=== PATIENT | male | born 1945 | race Caucasian/White ===

== ENCOUNTER 2017-08-04 16:05 | Inpatient (IN) | payer OTHER, MEDICARE ==
[2017-08-04] VITALS (20 sets, daily range): BP systolic 65–165; BP diastolic 47–96; PULSE 54–89; RESP 14–20; TEMP 92.4–93.6; O2SAT 91–100
[~2017-08-04] VITALS: Ht 175.3 cm; Wt 111.6 kg
[~2017-08-04 16:05] MED LIST: EPINEPHrine HCL (1:10,000) 1 MG/10 ML SYRINGE IV ONE; SODIUM BICARBONATE 8.4% INJ 50 MEQ/50 ML SYR IV ONE
[2017-08-04] MEDS ORDERED: DOPamine INJ PREMIX 500 ML ONE (16:30)
[2017-08-04 17:00] LABS: AUTOMATED NEUTROPHIL # 6.8 TH/MM3 (1.8-7.7); BASOPHIL % 0.2 % (0.0-2.0); EOSINOPHIL # 0.2 TH/MM3 (0-0.4); EOSINOPHIL % 2.1 % (0.0-4.0); HEMATOCRIT 45.6 % (39.0-51.0); LYMPH % 25.6 % (9.0-44.0); LYMPHOCYTE # 2.7 TH/MM3 (1.0-4.8); MEAN CELL VOLUME 105.8 FL (80.0-100.0); MEAN CORPUSCULAR HGB CONC 32.1 % (32.0-36.0); MONO % 7.5 % (0.0-8.0); NEUT % 64.6 % (16.0-70.0); PLATELET COUNT 246 TH/MM3 (150-450); RED BLOOD COUNT 4.31 MIL/MM3 (4.50-5.90); WHITE BLOOD COUNT 10.6 TH/MM3 (4.0-11.0)
[2017-08-04 17:05] LABS: HEMO FLAGS AUTO DIFF
[2017-08-04 17:14] LABS: ANION GAP 17 MEQ/L (5-15)
--- NOTE | 2017-08-04 17:21 | PD ---
HPI Chief Complaint: Respiratory Distress Time Seen by Provider: 16:18 Travel History International Travel<30 days: No Contact w/Intl Traveler<30days: No Traveled to known affect area: No History of Present Illness HPI This is a 71-year-old male unknown past, presents here as a cardiac arrest with return of spontaneous circulation. According to the paramedics are called to a house where he was found in asystole. When police arrived, they started CPR. When paramedics arrived they found him in asystole. They started epinephrine which put him into ventricular fibrillation. They report one defibrillation which put him in normal sinus rhythm. When [facility] arrived they found him in sinus rhythm and en route he went back into V. fib. He was defibrillated 1 further time and given one further round of epinephrine which brought him back to sinus rhythm with a pulse. Patient's blood pressure was noted to be in the low 100s systolic. He had a Combitube placed by the medics. This was exchanged with a 80 ET tube. Patient went back into PEA. ACLS protocol was initiated he was given 1 round of epinephrine which brought him back to pulse with a heart rate in the 70s and 80s. Patient was noted to have a low blood pressure and a dopamine drip was started at 10 mics. Orogastric tube was placed which showed blood in his stomach. This may have been from the Combitube placement. PFSH Past Medical History ?: Not Social History Tobacco Use: No (unknown) Allergies-Medications (Allergen,Severity, Reaction): Uncoded Allergies: unknown (Allergy, Unknown, unknown, 08/04/17) Review of Systems ROS Limitations: Clinical Condition, Intubated, Unresponsive, Other: Except as stated in HPI: all other systems reviewed are Neg Physical Exam Narrative GENERAL: Well-developed gentleman who presents with ventilations via Combitube in progress. Patient had fixed and dilated pupils. SKIN: Focused skin assessment warm/dry. HEAD: Atraumatic. Normocephalic. EYES: Fixed and dilated at 3 mm.. No scleral icterus. No injection or drainage. ENT: No nasal bleeding or discharge. Mucous membranes pink and moist. Combitube was in place. NECK: Trachea midline. No JVD. CARDIOVASCULAR: Regular rate and rhythm. No murmur appreciated. RESPIRATORY: No accessory muscle use. Clear to auscultation. Breath sounds equal bilaterally. Patient was being bagged through a Combitube initially. GASTROINTESTINAL: Abdomen soft, distended. No obvious pulsatile masses. MUSCULOSKELETAL: No obvious deformities. No clubbing. No cyanosis. No edema. NEUROLOGICAL: Patient had a GCS of 3, E1, V1, and 1. No spontaneous movement. No gag reflex. Data Data Last Documented VS Vital Signs Date Time Temp Pulse Resp B/P (MAP) Pulse Ox O2 Delivery O2 Flow Rate FiO2 08/04/17 18:22 82 79/50 08/04/17 18:18 100 50 08/04/17 17:59 93.6 16 Ventilator Orders Orders Electrocardiogram (08/04/17 16:18) Complete Blood Count With Diff (08/04/17 16:18) Comprehensive Metabolic Panel (08/04/17 16:18) Ckmb (Isoenzyme) Profile (08/04/17 16:18) Troponin I (08/04/17 16:18) Blood Culture (08/04/17 16:18) Chest, Single Ap (08/04/17 16:18) Ct Brain W/O Iv Contrast(Rout) (08/04/17 16:18) Iv Access Insert/Monitor (08/04/17 16:18) Ecg Monitoring (08/04/17 16:18) Oximetry (08/04/17 16:18) Urinary Catheter Insert/Apply (08/04/17 16:18) Francesca-Gastric Tube Insert/Mon (08/04/17 16:18) Alcohol (Ethanol) (08/04/17 16:18) Dopamine Inj Premix (Dopamine Inj Premix (08/04/17 16:30) CKMB (08/04/17 16:49) CKMB% (08/04/17 16:49) Admit To Inpatient (08/04/17 ) Code Status (08/04/17 17:56) Vital Signs (Adult) TRAVIS.Q1H (08/04/17 17:56) Activity Bed Rest (08/04/17 17:56) Elevate Head Of Bed (08/04/17 17:56) Neuro Checks . ORDERED (08/04/17 17:56) Pantoprazole Inj (Protonix Inj) (08/04/17 18:00) Albuterol-Ipratropium Neb (Duoneb Neb) (08/04/17 18:00) Complete Blood Count With Diff (08/05/17 04:00) Manager Bakery / Telemetry TRAVIS.Q8H (08/04/17 17:56) Scd Bilateral/Knee High TRAVIS.BID (08/04/17 17:56) ^ Initiate Protocol (08/04/17 17:56) Instruction (08/04/17 17:56) Misc Nursing Information (08/04/17 18:00) Mrsa Pcr Surveillance (08/04/17 17:56) Docusate Sodium-Senna (Mariela-Colace) (08/04/17 21:00) Magnesium Hydroxide Liq (Milk Of Magnesi (08/04/17 18:00) Sennosides (Senokot) (08/04/17 18:00) Lactulose Liq (Lactulose Liq) (08/04/17 18:00) Inpatient Certification (08/04/17 ) Dext 5%-Nacl 0.9% 1000 Ml Inj (D5w-Ns 10 (08/04/17 18:00) Arterial Blood Gas (Abg) (08/04/17 ) Prothrombin Time / Inr (Pt) (08/04/17 18:01) Lactic Acid (08/04/17 18:01) Diet Npo (08/04/17 Dinner) Admit Order (Ed Use Only) (08/04/17 18:13) Norepinephrine Inj (Levophed Inj) (08/04/17 18:22) Labs Laboratory Tests Test 08/04/17 16:49 08/04/17 18:00 White Blood Count 10.6 TH/MM3 Red Blood Count 4.31 MIL/MM3 Hemoglobin 14.6 GM/DL Hematocrit 45.6 % Mean Corpuscular Volume 105.8 FL Mean Corpuscular Hemoglobin 34.0 PG Mean Corpuscular Hemoglobin Concent 32.1 % Red Cell Distribution Width 13.0 % Platelet Count 246 TH/MM3 Mean Platelet Volume 7.3 FL Neutrophils (%) (Auto) 64.6 % Lymphocytes (%) (Auto) 25.6 % Monocytes (%) (Auto) 7.5 % Eosinophils (%) (Auto) 2.1 % Basophils (%) (Auto) 0.2 % Neutrophils # (Auto) 6.8 TH/MM3 Lymphocytes # (Auto) 2.7 TH/MM3 Monocytes # (Auto) 0.8 TH/MM3 Eosinophils # (Auto) 0.2 TH/MM3 Basophils # (Auto) 0.0 TH/MM3 CBC Comment AUTO DIFF Differential Total Cells Counted 100 Neutrophils % (Manual) 57 % Band Neutrophils % 1 % Lymphocytes % 26 % Monocytes % 13 % Basophils % 1 % Neutrophils # (Manual) 6.4 TH/MM3 Metamyelocytes 2 % Nucleated Red Blood Cells 8 /100 WBC Differential Comment FINAL DIFF MANUAL Atypical Lymphocytes % Platelet Estimate NORMAL Platelet Morphology Comment NORMAL Polychromasia 2.0 % Blood Urea Nitrogen 40 MG/DL Creatinine 1.98 MG/DL Random Glucose 55 MG/DL Total Protein 6.1 GM/DL Albumin 2.2 GM/DL Calcium Level 8.2 MG/DL Alkaline Phosphatase 57 U/L Aspartate Amino Transf (AST/SGOT) 6656 U/L Alanine Aminotransferase (ALT/SGPT) 4451 U/L Total Bilirubin 0.8 MG/DL Sodium Level 141 MEQ/L Potassium Level 4.7 MEQ/L Chloride Level 98 MEQ/L Carbon Dioxide Level 25.7 MEQ/L Anion Gap 17 MEQ/L Estimat Glomerular Filtration Rate 33 ML/MIN Total Creatine Kinase 374 U/L Creatine Kinase MB 1.4 NG/ML Creatine Kinase MB % 0.4 % Troponin I 0.18 NG/ML Ethyl Alcohol Level LESS THAN 3 MG/DL Blood Gas Puncture Site LT BRACHIAL Blood Gas Patient Temperature 98.6 Blood Gas HCO3 22 mmol/L Blood Gas Base Excess -6.6 mmol/L Blood Gas Oxygen Saturation 98 % Arterial Blood pH 7.11 Arterial Blood Partial Pressure CO2 70 mmHg Arterial Blood Partial Pressure O2 496 mmHG Arterial Blood Oxygen Content 22.5 Vol % Arterial Blood Carboxyhemoglobin 1.6 % Arterial Blood Methemoglobin 0.6 % Blood Gas Hemoglobin 15.5 G/DL Oxygen Delivery Device VENTILATOR Blood Gas Ventilator Setting Blood Gas Inspired Oxygen 100 % MDM Medical Decision Making Medical Screen Exam Complete: Yes Emergency Medical Condition: Yes Differential Diagnosis Acute cardiac arrest with Rosc versus anoxic brain injury versus intracranial hemorrhage. Narrative Course This is a 71-year-old male who is brought in after cardiac arrest with return of spontaneous circulation. The patient presents after having 2 doses of epinephrine and 2 defibrillations. The patient had an episode of decreasing sugar and CPR was initiated. We were able to regain spontaneous pulses or blood pressure. He is started on dopamine. The patient is very sick and I discussed with his nephew that at this point he has no spontaneous movements. At this point he wishes for full code at this point. Case discussed with Dr. Morley, who has assumed care. Critical Care Narrative Aggregate critical care time was 60 minutes. Time to perform other separately billable procedures was not included in the critical care time. My time did not include minutes spent treating any other patients simultaneously or on activities that did not directly contribute to the patient's treatment. The services I provided to this patient were to treat and/or prevent clinically significant deterioration that could result in: I provided critical care services requiring my management, as noted below: Chart data review, documentation time, medication orders and management, vital sign assessments/reviewing monitor data, ordering and reviewing lab tests, ordering and interpreting/reviewing x-rays and diagnostic studies, care of the patient and discussion of the patient with the admitting physicians. Procedures Procedure Narrative Performed emergently: INTUBATION: The patient was put in optimal position for the procedure. Using a seen at, patient was intubated with an 8.0 ET tube. Sedation and paralytics were not needed secondary to the patient's Serena Coma Scale. Tube placement was confirmed by visualization of the tube and balloon passing through the cords , capnometry and subsequent chest x-ray. Breath sounds were equal and well aerated bilaterally postintubation. No breath sounds over stomach. Patient tolerated procedure well. Diagnosis Primary Impression: cardiopulmonary arrest with return of spontaneous circulation Admitting Information Admitting Physician Requests: Admit Coy Mendez MD Aug 04, 2017 17:21
--- NOTE | 2017-08-04 17:27 | RADRPT ---
EXAM DATE/TIME: 08/04/2017 17:06 [facility] COMPARISON: No previous studies available for comparison. INDICATIONS : Found unresponsive. RADIATION DOSE: 56.35 CTDIvol (mGy) MEDICAL HISTORY : None SURGICAL HISTORY : None. ENCOUNTER: Initial ACUITY: 1 day PAIN SCALE: Non-responsive LOCATION: cranial TECHNIQUE: Multiple contiguous axial images were obtained of the head. Using automated exposure control and adj ustment of the mA and/or kV according to patient size, radiation dose was kept as low as reasonably a chievable to obtain optimal diagnostic quality images. DICOM format image data is available electro nically for review and comparison. FINDINGS: CEREBRUM: There is asymmetry of the sulci on the left compared to the right with the patient slightly tilted in the scanning gantry. No low density edema is identified and there is no mass effect or midline shift The ventricles are normal for age. No evidence of midline shift, mass lesion, hemorrhage or acute i nfarction. No extra-axial fluid collections are seen. POSTERIOR FOSSA: The cerebellum and brainstem are intact. The 4th ventricle is midline. The cerebellopontine angle i s unremarkable. EXTRACRANIAL: The visualized portion of the orbits is intact. SKULL: The calvaria is intact. No evidence of skull fracture. CONCLUSION: Asymmetry of the sulci with more atrophy and sulcal prominence noted over the left fr ontal and parietal convexities and paired to the right however there is no low density edema or mass effect identified. A portion of this may be artifactual and due to the patient being slightly tilted in the scanning gantry. Subtle edema is less likely. Further evaluation with MRI imaging could be per formed. Ian Maynard MD on August 04, 2017 at 17:18 Board Certified Radiologist. This report was verified electronically.
[2017-08-04 17:29] LABS: ALKALINE PHOSPHATASE 57 U/L (45-117); ALT (GPT) 4451 U/L (12-78); AST (GOT) 6656 U/L (15-37); BICARBONATE 25.7 MEQ/L (21.0-32.0); BLOOD UREA NITROGEN 40 MG/DL (7-18); CHLORIDE 98 MEQ/L (98-107); CREATINE KINASE 374 U/L (39-308); GLOMERULAR FILTRATION RATE 33 ML/MIN (>89); POTASSIUM 4.7 MEQ/L (3.5-5.1); SODIUM (NA) 141 MEQ/L (136-145); TOTAL BILIRUBIN ADULT 0.8 MG/DL (0.2-1.0)
[2017-08-04 17:31] LABS: ALCOHOL LESS THAN 3 MG/DL (0-5)
--- NOTE | 2017-08-04 17:39 | RADRPT ---
EXAM DATE/TIME: 08/04/2017 17:19 [facility] COMPARISON: No previous studies available for comparison. INDICATIONS : Short of breath, post intubation MEDICAL HISTORY : None. SURGICAL HISTORY : None. ENCOUNTER: Initial ACUITY: 1 day PAIN SCORE: Non-responsive. LOCATION: chest FINDINGS: 2 AP supine views of the chest were obtained and demonstrate an endotracheal tube in place with the t ip approximately 4 cm above the remedios. Nasogastric tube is in place with the tip in the stomach. The re are no confluent infiltrates or effusions. There is a 1.6 x 1.4 cm mass projected over the upper m id left lung. There is a calcified granuloma projected over the left lung apex. The heart size is wit hin normal limits with no perihilar edema. There are multiple right rib fractures. CONCLUSION: 1. Status post intubation. 2. 1.6 x 1.4 cm mass projected over left lung. Further evaluation with chest CT is recommended. Ian Maynard MD on August 04, 2017 at 17:33 Board Certified Radiologist. This report was verified electronically.
[2017-08-04 17:50] LABS: CKMB 1.4 NG/ML (0.5-3.6)
[2017-08-04] MEDS ORDERED: MAGNESIUM HYDROXIDE SUSP 30 ML CUP PO PRN (18:00)
[2017-08-04] MEDS ORDERED: LACTULOSE SYRUP 20 GM/30 ML CUP PO PRN (18:00)
[2017-08-04] MEDS ORDERED: SENNOSIDES 8.6 MG TAB PO PRN (18:00)
[2017-08-04] MEDS ORDERED: DEXT 5%-NACL 0.9% 1000 ML INJ 1,000 ML IV SCH (18:00)
[2017-08-04] MEDS ORDERED: MISCELLANEOUS NURSING INFORMATION XX SCH ×2 (18:00→19:15)
[2017-08-04 18:16] LABS: BLOOD GAS BASE EXCESS -6.6 mmol/L (-2-2); BLOOD GAS CARBOXYHEMOGLOBIN 1.6 % (0-4); BLOOD GAS HCO3 22 mmol/L (22-26); BLOOD GAS METHEMOGLOBIN 0.6 % (0-2); BLOOD GAS O2 HGB SATURATION 98 % (90-100); BLOOD GAS OXYGEN CONTENT 22.5 Vol % (12.0-20.0); BLOOD GAS PCO2 70 mmHg (38-42); BLOOD GAS PO2 496 mmHG (61-120); BLOOD GAS TOTAL HGB 15.5 G/DL (12.0-16.0); TEMP CORR TO 98.6
[2017-08-04 18:17] LABS: CRITICAL VALUE YES; DRAW SITE LT BRACHIAL; FIO2 100 %; NUMBER OF ARTERIAL PUNCTURES 1; OXYGEN DEVICE VENTILATOR; STAT YES; ULNAR PULSE PRESENT
[2017-08-04] MEDS ORDERED: NOREPINEPHRINE 4 MG/4 ML AMP ONE (18:22)
[2017-08-04] MEDS ORDERED: SODIUM CHLOR 0.9% 1000 ML INJ 1,000 ML IV ONE ×2 (18:45)
[2017-08-04] MEDS ORDERED: IOHEXOL 350 MG/ML 10 ML VIAL (for RAD DIAG) IVCONTRAST ONE (19:05)
[2017-08-04] MEDS ORDERED: LORazepam 2 MG/ML VIAL IV PUSH PRN ×4 (19:15)
[2017-08-04] MEDS ORDERED: ONDANSETRON HCL 4 MG/2 ML VIAL IV PUSH PRN (19:15)
[2017-08-04] MEDS ORDERED: CHLORHEXIDINE GLUCONATE 2 % 1 PACK (2 CLOTHS) TOP PRN (19:15)
[2017-08-04] MEDS ORDERED: MIDAZOLAM 100 MG/100 ML INJ 100 ML IV PRN (19:15)
[2017-08-04] MEDS ORDERED: LORazepam 1 MG TAB PO PRN (19:15)
[2017-08-04] MEDS ORDERED: MORPHINE SULFATE 4 MG/ML INJ IV PUSH PRN (19:15)
[2017-08-04] MEDS ORDERED: TERBUTALINE INJ 1 MG/ML AMP SQ PRN (19:15)
[2017-08-04] MEDS ORDERED: SODIUM CHLORIDE 0.9% FLUSH 10 ML FLUSH IV FLUSH PRN (19:15)
[2017-08-04] MEDS ORDERED: FLUMAZENIL 0.5 MG/5 ML VIAL IV PUSH PRN (19:15)
[2017-08-04] MEDS ORDERED: LORazepam 2 MG TAB PO PRN (19:15)
--- NOTE | 2017-08-04 19:19 | HHI.HP ---
HPI Service Critical Care Medicine Primary Care Physician Unknown Admission Diagnosis cardiac arrest with rosc, hypotension. Diagnosis: Travel History International Travel<30 Days: No Contact w/Intl Traveler <30 Da: No Traveled to Known Affected Are: No History of Present Illness 71-year-old male with history of COPD, alcohol use disorder, presents here as a cardiac arrest with return of spontaneous circulation. The paramedics where called to a house where he was found in asystole. When police arrived, they started CPR. They started epinephrine which put him into ventricular fibrillation. They report one defibrillation which put him in normal sinus rhythm. When [facility] arrived they found him in sinus rhythm and en route he went back into V. fib. He was defibrillated 1 further time and given one further round of epinephrine which brought him back to sinus rhythm with a pulse. Patient's blood pressure was noted to be in the low 100s systolic. He had a Combitube placed by the medics. This was exchanged with a 8.0 ET tube. Patient went back into PEA. ACLS protocol was initiated he was given 1 round of epinephrine which brought him back to pulse with a heart rate in the 70s and 80s. Patient was noted to have a low blood pressure and a dopamine drip was started at 10 mics. Per family report the patient drinks about 1 gallon of wine a day and smokes pack per cigarette. Review of Systems ROS Unobtainable patient is comatose and intubated Past Family Social History Allergies: Uncoded Allergies: unknown (Allergy, Unknown, unknown, 08/04/17) Past Medical History COPD Alcoholism Past Surgical History Unobtainable Reported Medications Unobtainable Active Ordered Medications Current Medications Medications (Trade) Dose Ordered Sig/Radha Route PRN Reason Start Time Stop Time Status Last Admin Dose Admin Pantoprazole Sodium (Protonix Inj) 40 mg DAILY@1800 IV PUSH 08/04/17 18:00 08/04/17 22:16 Albuterol/ Ipratropium (Duoneb Neb) 1 ampule Q6HR NEB INH 08/04/17 18:00 08/04/17 21:18 Miscellaneous Information 1 Q361D XX 08/04/17 18:00 Senna/Docusate Sodium (Mariela-Colace) 1 tab BID PO 08/04/17 21:00 08/04/17 21:37 Magnesium Hydroxide (Milk Of Magnesia Liq) 30 ml Q12H PRN PO MILD - MODERATE CONSTIPATION 08/04/17 18:00 Sennosides (Senokot) 17.2 mg Q12H PRN PO MODERATE - SEVERE CONSTIPATION 08/04/17 18:00 Lactulose (Lactulose Liq) 30 ml DAILY PRN PO SEVERE CONSITIPATION 08/04/17 18:00 Sodium Chloride 1,000 ml @ 84 mls/hr [id number] IV 08/04/17 19:01 08/04/17 21:16 Sodium Chloride (NS Flush) 2 ml UNSCH PRN IV FLUSH FLUSH AFTER USING IV ACCESS 08/04/17 19:15 Sodium Chloride (NS Flush) 2 ml BID IV FLUSH 08/04/17 21:00 08/04/17 21:07 Acetaminophen (Tylenol) 650 mg Q6H PRN PO PAIN 1-10 AND/OR FEVER >101F 08/04/17 19:15 Morphine Sulfate (Morphine Inj) 2 mg Q2H PRN IV PUSH PAIN SCALE 6 TO 10 08/04/17 19:15 Famotidine (Pepcid Inj) 10 mg Q12HR IV PUSH 08/04/17 21:00 08/04/17 21:37 Artificial Tears (Tears Naturale Opth Soln) 1 drop TID EACH EYE 08/05/17 09:00 Ondansetron HCl (Zofran Inj) 4 mg Q6H PRN IV PUSH NAUSEA OR VOMITING 08/04/17 19:15 Albuterol/ Ipratropium (Duoneb Neb) 1 ampule Q2HR NEB PRN INH WHEEZING 08/04/17 19:15 Heparin Sodium (Porcine) (Heparin Inj) 5,000 units Q8H SQ 08/04/17 20:00 08/04/17 22:17 Miscellaneous Information 1 Q361D XX 08/04/17 19:15 Chlorhexidine Gluconate (Chlorhexidine 2% Cloth) 3 pack Taper DAILY@04 TOP 08/05/17 04:00 08/01/18 03:59 Chlorhexidine Gluconate (Chlorhexidine 2% Cloth) 3 pack UNSCH PRN TOP HYGIENIC CARE 08/04/17 19:15 Chlorhexidine Gluconate (Peridex 0.12% Liq) 15 ml BID@08,20 MT 08/04/17 20:00 08/04/17 21:07 Midazolam HCl 100 ml @ 2 mls/hr TITRATE PRN IV SEDATION 08/04/17 19:15 Fentanyl Citrate 250 ml @ 5 mls/hr TITRATE PRN IV SEDATION 08/04/17 19:15 08/04/17 21:07 Albumin Human (Albumin 5% Inj) 25 gm Q6H IV 08/04/17 20:00 08/05/17 14:01 08/04/17 21:37 Multivitamins 10 ml/Thiamine HCl 100 mg/Folic Acid 1 mg/Sodium Chloride 511.2 ml @ 125 mls/hr ONCE ONCE IV 08/04/17 21:15 08/05/17 01:20 08/04/17 21:37 Norepinephrine Bitartrate 250 ml @ 7.5 mls/hr TITRATE PRN IV Blood pressure management 08/04/17 19:15 08/04/17 21:35 Terbutaline Sulfate (Brethine Inj) 1 mg UNSCH PRN SQ For Extravasation 08/04/17 19:15 Flumazenil (Romazicon Inj) 0.2 mg Q1M PRN IV PUSH SEE LABEL COMMENTS 08/04/17 19:15 Lorazepam (Ativan) 1 mg Q4H PRN PO CIWA 8 - 10 08/04/17 19:15 Lorazepam (Ativan Inj) 1 mg Q4H PRN IV PUSH CIWA 8 - 10 08/04/17 19:15 Lorazepam (Ativan) 2 mg Q2H PRN PO CIWA 11-14 08/04/17 19:15 Lorazepam (Ativan Inj) 2 mg Q2H PRN IV PUSH CIWA 11-14 08/04/17 19:15 Lorazepam (Ativan Inj) 2 mg Q1H PRN IV PUSH CIWA 15-20 08/04/17 19:15 Lorazepam (Ativan Inj) 2 mg Q15M PRN IV PUSH CIWA > 20 08/04/17 19:15 Vasopressin 40 units/Dextrose 100 ml @ 6 mls/hr [id number] IV 08/04/17 23:15 Family History Unobtainable Social History Drinks about 1 gallon of wine daily Smokes pack per day Physical Exam Vital Signs Vital Signs Date Time Temp Pulse Resp B/P (MAP) Pulse Ox O2 Delivery O2 Flow Rate FiO2 08/04/17 18:45 85 18 96/68 (77) 100 Ventilator 08/04/17 18:22 82 79/50 08/04/17 18:18 100 50 08/04/17 17:59 93.6 82 16 81/47 (58) 100 Ventilator 08/04/17 17:55 100 08/04/17 17:55 100 100 08/04/17 17:45 82 16 88/51 (63) 100 Ventilator 100 08/04/17 17:20 83 16 92/59 (70) 100 Ventilator 100 08/04/17 17:00 100 08/04/17 16:57 81 18 96/54 (68) 99 Ventilator 100 08/04/17 16:44 100 100 08/04/17 16:43 85 14 131/61 (84) 100 Ventilator 100 08/04/17 16:39 87 16 165/77 (106) 100 Ventilator 100 08/04/17 16:30 80 88/42 08/04/17 16:25 18 97 Ventilator 100 08/04/17 16:24 54 14 136/78 (97) 98 Ventilator 100 Physical Exam GENERAL: Elderly comatose gentleman intubated. SKIN: Warm and dry. HEAD: Normocephalic. EYES: No scleral icterus. No injection or drainage. NECK: Supple, trachea midline. No JVD or lymphadenopathy. CARDIOVASCULAR: Regular rate and rhythm without murmurs, gallops, or rubs. RESPIRATORY: Breath sounds equal bilaterally. No accessory muscle use. GASTROINTESTINAL: Abdomen soft, non-tender, nondistended. MUSCULOSKELETAL: No cyanosis, or edema. BACK: Nontender without obvious deformity. NEURO EXAM: GCS: M1 Vt E1 Mental Status: The patient is sedated and unresponsive Cranial Nerves: Pupils are round, 2 mm and nonreactive. Reflexes: No clonus. Laboratory Laboratory Tests Test 08/04/17 16:49 08/04/17 18:00 White Blood Count 10.6 Red Blood Count 4.31 Hemoglobin 14.6 Hematocrit 45.6 Mean Corpuscular Volume 105.8 Mean Corpuscular Hemoglobin 34.0 Mean Corpuscular Hemoglobin Concent 32.1 Red Cell Distribution Width 13.0 Platelet Count 246 Mean Platelet Volume 7.3 Neutrophils (%) (Auto) 64.6 Lymphocytes (%) (Auto) 25.6 Monocytes (%) (Auto) 7.5 Eosinophils (%) (Auto) 2.1 Basophils (%) (Auto) 0.2 Neutrophils # (Auto) 6.8 Lymphocytes # (Auto) 2.7 Monocytes # (Auto) 0.8 Eosinophils # (Auto) 0.2 Basophils # (Auto) 0.0 CBC Comment AUTO DIFF Blood Urea Nitrogen 40 Creatinine 1.98 Random Glucose 55 Total Protein 6.1 Albumin 2.2 Calcium Level 8.2 Alkaline Phosphatase 57 Aspartate Amino Transf (AST/SGOT) 6656 Alanine Aminotransferase (ALT/SGPT) 4451 Total Bilirubin 0.8 Sodium Level 141 Potassium Level 4.7 Chloride Level 98 Carbon Dioxide Level 25.7 Anion Gap 17 Estimat Glomerular Filtration Rate 33 Total Creatine Kinase 374 Creatine Kinase MB 1.4 Creatine Kinase MB % 0.4 Troponin I 0.18 Ethyl Alcohol Level LESS THAN 3 Blood Gas Puncture Site LT BRACHIAL Blood Gas Patient Temperature 98.6 Blood Gas HCO3 22 Blood Gas Base Excess -6.6 Blood Gas Oxygen Saturation 98 Arterial Blood pH 7.11 Arterial Blood Partial Pressure CO2 70 Arterial Blood Partial Pressure O2 496 Arterial Blood Oxygen Content 22.5 Arterial Blood Carboxyhemoglobin 1.6 Arterial Blood Methemoglobin 0.6 Blood Gas Hemoglobin 15.5 Oxygen Delivery Device VENTILATOR Blood Gas Ventilator Setting Blood Gas Inspired Oxygen 100 Result Diagram: 08/04/17 1649 08/04/17 164 Imaging Last [address] 08/04/171617 Signed Impressions: Service Date/Time: July 17:06 - CONCLUSION: Asymmetry of the sulci with more atrophy and sulcal prominence noted over the left frontal and parietal convexities and paired to the right however there is no low density edema or mass effect identified. A portion of this may be artifactual and due to the patient being slightly tilted in the scanning gantry. Subtle edema is less likely. Further evaluation with MRI imaging could be performed. Ian Maynard MD Chest X-Ray 08/04/171617 Signed Impressions: Service Date/Time: July 17:19 - CONCLUSION: 1. Status post intubation. 2. 1.6 x 1.4 cm mass projected over left lung. Further evaluation with chest CT is recommended. Ian Maynard MD Chest X-Ray 08/04/17 0000 Signed Impressions: Service Date/Time: July 20:33 - CONCLUSION: 1. Right subclavian line in good position. 2. Interstitial prominence and pulmonary nodules, the lungs are more fully described in the CT pulmonary angiogram. Interstitial prominence is likely secondary to small nodules that are seen on the CT examination. 1. Martinez Cerda MD CT Angiography 08/04/17 Signed Impressions: Service Date/Time: July 18:44 - CONCLUSION: 1. No pulmonary embolus. 2. Chronic emphysematous change seen in the upper lungs. 3. Numerous patchy areas of focal density seen throughout both lungs. This pattern is most suggestive of post inflammatory change although other processes including neoplasm cannot absolutely be excluded. The patient does have evidence of prior granulomatous exposure. If the patient had signs of infectious/inflammatory change in the lungs, they could be treated and a follow-up CT examination be obtained in two to three months for re-evaluation. Alternatively, one could perform a PET scan to determine if any of these areas are metabolically active. The largest area is seen in the left upper lobe. Martinez Cerda MD Abdomen/Pelvis CT 08/04/17 Signed Impressions: Service Date/Time: July 18:44 - CONCLUSION: 1. No acute abnormality is seen. 2. Mild hepatic steatosis. 3. Mildly prominent retroperitoneal lymph nodes, these are nonspecific. 4. Right renal cysts. MD Haley Patel VTE Risk Assessment Caprini VTE Risk Assessment: Mod/High Risk (score >= 2) Caprini Risk Assessment Model Point Value = 1 Point Value = 2 Point Value = 3 Point Value = 5 Age 41-60 Minor surgery BMI > 25 kg/m2 Swollen legs Varicose veins or History of unexplained or recurrent spontaneous Oral contraceptives or hormone replacement Sepsis (< 1 month) Serious lung disease, including pneumonia (< 1 month) Abnormal pulmonary function Acute myocardial infarction Congestive heart failure (< 1 month) History of inflammatory bowel disease Medical patient at bed rest Age 61-74 Arthroscopic surgery Major open surgery (> 45 min) Laparoscopic surgery (> 45 min) Malignancy Confined to bed (> 72 hours) Immobilizing plaster cast Central venous access Age >= 75 History of VTE Family history of VTE Factor V Leiden Prothrombin [id number] Lupus anticoagulant Anticardiolipin antibodies Elevated serum homocysteine Heparin-induced thrombocytopenia Other congenital or acquired thrombophilia Stroke (< 1 month) Elective arthroplasty Hip, pelvis, or leg fracture Acute spinal cord injury (< 1 month) Prophylaxis Regimen Total Risk Factor Score Risk Level Prophylaxis Regimen 0-1 Low Early ambulation 2 Moderate Order ONE of the following: *Sequential Compression Device (SCD) *Heparin 5000 units SQ BID 3-4 Higher Order ONE of the following medications: *Heparin 5000 units SQ TID *Enoxaparin/Lovenox 40 mg SQ daily (WT < 150 kg, CrCl > 30 mL/min) *Enoxaparin/Lovenox 30 mg SQ daily (WT < 150 kg, CrCl > 10-29 mL/min) *Enoxaparin/Lovenox 30 mg SQ BID (WT < 150 kg, CrCl > 30 mL/min) AND/OR *Sequential Compression Device (SCD) 5 or more Highest Order ONE of the following medications: *Heparin 5000 units SQ TID (Preferred with Epidurals) *Enoxaparin/Lovenox 40 mg SQ daily (WT < 150 kg, CrCl > 30 mL/min) *Enoxaparin/Lovenox 30 mg SQ daily (WT < 150 kg, CrCl > 10-29 mL/min) *Enoxaparin/Lovenox 30 mg SQ BID (WT < 150 kg, CrCl > 30 mL/min) AND *Sequential Compression Device (SCD) Assessment and Plan Assessment and Plan Respiratory failure - Post cardiac arrest - No weaning until neurologically improved - Vent bundle - DuoNeb scheduled and when necessary COPD - DuoNeb scheduled and when necessary - IV steroid - Mechanical ventilation - Follow-up ABG and chest x-ray in the morning Alcohol use disorder - CIWA protocol - Thiamine folate and multivitamins IV DVT GI prophylaxis - Teds SCDs - Subcutaneous heparin - Pepcid Critical Care: The total critical care time was 35 minutes. Time to perform other separately billable procedures was not included in the critical care time. Hussain Morley MD Aug 04, 2017 19:19
[2017-08-04 19:20] LABS: BANDS 1 % (0-6); BASOPHILS 1 % (0-2); CORRECTED NUCLEATED RBC 8 /100 WBC (0-0); METAMYELOCYTES 2 % (0-1); NEUTROPHIL # MANUAL DIFF 6.4 TH/MM3 (1.8-7.7); POLYS (SEG NEUTROPHILS) 57 % (16-70); SCAN/DIFF FINAL DIFF MANUAL; WBC DIFF SAMPLE 100
[2017-08-04 19:22] LABS: PLATELET ESTIMATE SMEAR NORMAL (NORMAL); PLATELET MORPHOLOGY NORMAL (NORMAL)
--- NOTE | 2017-08-04 19:48 | RADRPT ---
EXAM DATE/TIME: 08/04/2017 18:44 [facility] COMPARISON: No previous studies available for comparison. INDICATIONS : Found unresponsive; respiratory failure IV CONTRAST: 80 cc Omnipaque 350 (iohexol) IV ; Cumulative dose for multiple exams. RADIATION DOSE: 17.24 CTDIvol (mGy) MEDICAL HISTORY : Non-responsive. SURGICAL HISTORY : Non-responsive. ENCOUNTER: Initial ACUITY: 1 day PAIN SCALE: Non-responsive LOCATION: Bilateral chest TECHNIQUE: Volumetric scanning of the chest was performed using a pulmonary embolism protocol MIP images were re constructed. Using automated exposure control and adjustment of the mA and/or kV according to patien t size, radiation dose was kept as low as reasonably achievable to obtain optimal diagnostic quality images. DICOM format image data is available electronically for review and comparison. Follow-up recommendations for detected pulmonary nodules are based at a minimum on nodule size and pa tient risk factors according to Fleischner Society Guidelines. FINDINGS: There are emphysematous changes seen throughout the left upper lung. There are numerous patchy areas of focal density seen throughout both lungs. The largest area is seen in the left upper lung measuri ng 3.5 x 1.4 x 1.8 cm. Most of the other areas measure less than 1 cm. They appear to be mainly moises pheral. No effusion is seen. No pulmonary embolus is seen. There is an area of dense calcification seen in the subcarinal region consistent with a calcified lymph node. There are a few small areas o f calcification seen in the right hilar region. The patient is intubated. Significant soft tissue a denopathy is not clearly appreciated. There is an NG tube in place. CONCLUSION: 1. No pulmonary embolus. 2. Chronic emphysematous change seen in the upper lungs. 3. Numerous patchy areas of focal density seen throughout both lungs. This pattern is most suggestive of post inflammatory change although other processes including neoplasm cannot absolutely be exclude d. The patient does have evidence of prior granulomatous exposure. If the patient had signs of infe ctious/inflammatory change in the lungs, they could be treated and a follow-up CT examination be obta ined in two to three months for re-evaluation. Alternatively, one could perform a PET scan to determ ine if any of these areas are metabolically active. The largest area is seen in the left upper lobe. Martinez Cerda MD on August 04, 2017 at 19:36 Board Certified Radiologist. This report was verified electronically.
--- NOTE | 2017-08-04 19:57 | RADRPT ---
EXAM DATE/TIME: 08/04/2017 18:44 [facility] COMPARISON: No previous studies available for comparison. INDICATIONS : Found unresponsive. IV CONTRAST: 80 cc Omnipaque 350 (iohexol) IV ORAL CONTRAST: No oral contrast ingested. RADIATION DOSE: 9.96 CTDIvol (mGy) MEDICAL HISTORY : Non-responsive. SURGICAL HISTORY : Non-responsive. ENCOUNTER: Initial ACUITY: 1 day PAIN SCALE: Non-responsive LOCATION: Bilateral abdomen TECHNIQUE: Volumetric scanning of the abdomen and pelvis was performed. Using automated exposure control and adjustment of the mA and/or kV according to patient size, radiation dose was kept as low as reasonably achievable to obtain optimal diagnostic quality images. DICOM format image data is av ailable electronically for review and comparison. FINDINGS: The liver demonstrates decreased attenuation. No focal hepatic lesions are seen. The spleen, pancreas and adrenal glands are unremarkable. Both kidneys demonstrate normal enhancement. T here are cysts seen at the right kidney measuring up to 2.7 cm. Atherosclerotic calcifications are s een throughout the arterial system. An aneurysm is not seen. There are mildly prominent lymph nodes seen in the retroperitoneum measuring up to 2.8 x 1.9 x 1.2 cm. These are nonspecific. There is an NG tube in place in the stomach. The bowel is unremarkable. There is a Zhu catheter i n the urinary bladder. Prosthetic calcifications are present. The anterior abdominal wall appears i ntact. The bony structures are unremarkable. Please see the CT examination of the chest for full ev aluation of the lungs. CONCLUSION: 1. No acute abnormality is seen. 2. Mild hepatic steatosis. 3. Mildly prominent retroperitoneal lymph nodes, these are nonspecific. 4. Right renal cysts. Martinez Cerda MD on August 04, 2017 at 19:41 Board Certified Radiologist. This report was verified electronically.
[2017-08-04] MEDS: SODIUM CHLORIDE 0.9% FLUSH 10 ML FLUSH IV FLUSH SCH (21:07)
[2017-08-04] MEDS: CHLORHEXIDINE 0.12% (ORAL KIT) 15 ML CUP MT SCH (21:07)
[2017-08-04] MEDS: fentaNYL DRIP 250 ML IV PRN (21:07)
--- NOTE | 2017-08-04 21:14 | RADRPT ---
EXAM DATE/TIME: 08/04/2017 20:33 [facility] COMPARISON: CT PULMONARY ANGIOGRAM, August 04, 2017, 18:44. CHEST SINGLE AP, August 04, 2017, 17:19. INDICATIONS : Central line placement. MEDICAL HISTORY : None. SURGICAL HISTORY : None. ENCOUNTER: Initial ACUITY: 1 day PAIN SCORE: Non-responsive. LOCATION: Bilateral chest FINDINGS: There is a right subclavian central line in place with the tip overlying the SVC. This appears well p laced. A pneumothorax is not seen. The heart size is normal. There is prominence of the interstitium at the lung bases. There are nodules seen in the left upper lobe. Old healed right rib fractures are seen. The ET tube and NG tube are well placed. CONCLUSION: 1. Right subclavian line in good position. 2. Interstitial prominence and pulmonary nodules, the lungs are more fully described in the CT pulmon hanane angiogram. Interstitial prominence is likely secondary to small nodules that are seen on the CT e xamination. 1. Martinez Cerda MD on August 04, 2017 at 21:10 Board Certified Radiologist. This report was verified electronically.
[2017-08-04] MEDS ORDERED: MULTIVITAMIN INJ 10 ML, THIAMINE INJ 100 MG, FOLIC ACID INJ 1 MG in SODIUM CHLORID 0.9%... IV ONE (21:15)
[2017-08-04] MEDS: SODIUM CHLOR 0.9% 1000 ML INJ 1,000 ML IV SCH (21:16)
[2017-08-04] MEDS: RESP: ALBUTEROL 2.5 MG/IPRATROPIUM 0.5 MG NEB (SCH) INH (21:18)
[2017-08-04] MEDS: NOREPINEPHRINE-DEXTROSE DRIP 250 ML IV PRN (21:35)
[2017-08-04] MEDS: FAMOTIDINE 20 MG/2 ML VIAL IV PUSH SCH (21:37)
[2017-08-04] MEDS: ALBUMIN HUMAN 5% 25 GM/500 ML BOTTLE IV SCH (21:37)
[2017-08-04] MEDS: DOCUSATE SODIUM 50 MG/SENNA 8.6 MG TAB PO SCH (21:37)
[2017-08-04 21:50] LABS: PROTHROMBIN TIME - PATIENT 23.1 SEC (9.8-11.6)
[2017-08-04] MEDS ORDERED: VASOPRESSIN INJ 40 UNITS in DEXTROSE 5% IN WATER 100ML INJ 98 ML IV SCH ×2 (21:59)
[2017-08-04] MEDS: PANTOPRAZOLE SODIUM 40 MG VIAL IV PUSH SCH (22:16)
[2017-08-04] MEDS: HEPARIN SODIUM - SQ 10,000 UNITS/ML VIAL SQ SCH (22:17)
[2017-08-05] VITALS (34 sets, daily range): BP systolic 79–155; BP diastolic 55–85; PULSE 78–97; RESP 20–30; O2SAT 92–98
[2017-08-05] MEDS ORDERED: TERBUTALINE INJ 1 MG/ML AMP SQ PRN
[2017-08-05] MEDS ORDERED: SODIUM CHLOR 0.9% 1000 ML INJ 1,000 ML IV ONE ×2
[2017-08-05] MEDS ORDERED: DOPamine INJ PREMIX 500 ML IV PRN
[2017-08-05] MEDS: NOREPINEPHRINE-DEXTROSE DRIP 250 ML IV PRN ×6 (00:01→22:12)
[2017-08-05] MEDS: VASOPRESSIN INJ 40 UNITS in DEXTROSE 5% IN WATER 100ML INJ 98 ML IV SCH ×4 (00:08→15:50)
[2017-08-05] MEDS: SODIUM CHLOR 0.9% 1000 ML INJ 1,000 ML IV SCH ×3 (02:21→17:44)
[2017-08-05] MEDS: ALBUMIN HUMAN 5% 25 GM/500 ML BOTTLE IV SCH ×3 (02:24→13:30)
[2017-08-05] MEDS: RESP: ALBUTEROL 2.5 MG/IPRATROPIUM 0.5 MG NEB (SCH) INH ×4 (03:54→21:08)
[2017-08-05] MEDS: CHLORHEXIDINE GLUCONATE 2 % 1 PACK (2 CLOTHS) TOP SCH (04:00)
[2017-08-05] MEDS: HEPARIN SODIUM - SQ 10,000 UNITS/ML VIAL SQ SCH ×3 (04:22→20:02)
[2017-08-05 04:32] LABS: AUTOMATED NEUTROPHIL # 16.1 TH/MM3 (1.8-7.7); BASOPHIL % 0.2 % (0.0-2.0); LYMPH % 3.3 % (9.0-44.0); LYMPHOCYTE # 0.6 TH/MM3 (1.0-4.8); MEAN CORPUSCULAR HEMOGLOBIN 33.7 PG (27.0-34.0); NEUT % 91.5 % (16.0-70.0); PLATELET COUNT 197 TH/MM3 (150-450); RED BLOOD COUNT 4.02 MIL/MM3 (4.50-5.90); WHITE BLOOD COUNT 17.6 TH/MM3 (4.0-11.0)
[2017-08-05 04:37] LABS: BLOOD GAS BASE EXCESS -6.1 mmol/L (-2-2); BLOOD GAS CARBOXYHEMOGLOBIN 1.6 % (0-4); BLOOD GAS HCO3 20 mmol/L (22-26); BLOOD GAS METHEMOGLOBIN 1.1 % (0-2); BLOOD GAS O2 HGB SATURATION 86 % (90-100); BLOOD GAS OXYGEN CONTENT 15.9 Vol % (12.0-20.0); BLOOD GAS PCO2 49 mmHg (38-42); BLOOD GAS PO2 65 mmHg (61-120); BLOOD GAS TOTAL HGB 13.1 G/DL (12.0-16.0); CRITICAL VALUE YES; DRAW SITE ART LINE; FIO2 40 %; OXYGEN DEVICE VENTILATOR; STAT NO; TEMP CORR TO 98.6; VENT SETTINGS 20/600/5PEEP
[2017-08-05 04:41] LABS: HEMO FLAGS AUTO DIFF
--- NOTE | 2017-08-05 05:15 | RADRPT ---
EXAM DATE/TIME: 08/05/2017 03:59 [facility] COMPARISON: CHEST SINGLE AP, August 04, 2017, 20:33. INDICATIONS : Evaluate for respiratory failure. MEDICAL HISTORY : None. SURGICAL HISTORY : None. ENCOUNTER: Subsequent ACUITY: 2 days PAIN SCORE: Non-responsive. LOCATION: chest FINDINGS: A single portable frontal view of the chest shows no interval change. Nodular densities are again see n involving the left upper lobe. Interstitial prominence remains throughout the basilar segments bila terally. No effusions. Right subclavian central line. Tip of an endotracheal tube 4 cm from the kaya a. Nasogastric tube coursing off the inferior margin of the film. Heart is normal in size. CONCLUSION: Unchanged pulmonary nodules and interstitial prominence involving the bases. Lines and tubes. Simeon Krishna Jr., MD on August 05, 2017 at 5:12 Board Certified Radiologist. This report was verified electronically.
[2017-08-05 05:20] LABS: BICARBONATE 23.1 MEQ/L (21.0-32.0); MAGNESIUM 1.8 MG/DL (1.5-2.5); POTASSIUM 3.5 MEQ/L (3.5-5.1); TOTAL BILIRUBIN ADULT 1.7 MG/DL (0.2-1.0)
[2017-08-05 05:35] LABS: CALCIUM-PROTEIN CORRECTED 7.3 MG/DL (8.5-10.1)
[2017-08-05] MEDS ORDERED: CALCIUM GLUCONATE INJ 2 GM in SODIUM CHLORIDE 0.9% INJ 100 ML IV ONE (06:00)
[2017-08-05 07:11] LABS: BANDS 46 % (0-6); CORRECTED NUCLEATED RBC 2 /100 WBC (0-0); METAMYELOCYTES 3 % (0-1); NEUTROPHIL # MANUAL DIFF 16.5 TH/MM3 (1.8-7.7); PLATELET ESTIMATE SMEAR NORMAL (NORMAL); PLATELET MORPHOLOGY NORMAL (NORMAL); POLYS (SEG NEUTROPHILS) 45 % (16-70); SCAN/DIFF FINAL DIFF MANUAL; TOXIC GRANULATION 2+ (NORMAL); WBC DIFF SAMPLE 100
[2017-08-05] MEDS: FAMOTIDINE 20 MG/2 ML VIAL IV PUSH SCH ×2 (08:25→20:02)
[2017-08-05] MEDS: ARTIFICIAL TEARS OPTH SOLN 15 ML BTL EACH EYE SCH ×3 (08:25→17:49)
[2017-08-05] MEDS: DOCUSATE SODIUM 50 MG/SENNA 8.6 MG TAB PO SCH ×2 (08:25→20:01)
[2017-08-05] MEDS: CHLORHEXIDINE 0.12% (ORAL KIT) 15 ML CUP MT SCH ×2 (08:35→20:03)
[2017-08-05] MEDS: SODIUM CHLORIDE 0.9% FLUSH 10 ML FLUSH IV FLUSH SCH ×2 (09:00→20:03)
[2017-08-05] MEDS: methylPREDNISolone SOD SUCC 125 MG/2 ML VIAL IV PUSH SCH ×2 (09:09→20:02)
[2017-08-05] MEDS ORDERED: VECURONIUM BROMIDE 10 MG VIAL ONE (09:32)
[2017-08-05] MEDS ORDERED: VECURONIUM BROMIDE 10 MG VIAL IV ONE (09:42)
--- NOTE | 2017-08-05 10:46 | MB ---
cc: LEXI NAVARRO DATE OF CONSULTATION: 08/05/2017 DATE OF : 1945 REASON FOR CONSULTATION Cardiac arrest, hypotension. HISTORY OF PRESENT ILLNESS 71-year-old male with a history of COPD and alcohol abuse, who was brought into the emergency department by EMS after a cardiac arrest with return of spontaneous circulation. According to reports the patient was found down in his house. When paramedics found him he was in asystole. CPR was started. It is unclear how long he was given CPR; however, he was shocked for ventricular fibrillation but returned to a spontaneous circulation. The patient was defibrillated again for ventricular fibrillation and epinephrine was given. The patient was intubated in the field and started on vasopressors for low blood pressure. Upon arrival in the emergency department the patient had no neurological reflexes and is comatose. Per records he has no history of CAD. Cardiology has been consulted for further management and evaluation. REVIEW OF SYSTEMS Unobtainable. ALLERGIES Unknown. PAST MEDICAL HISTORY 1. COPD. 2. Alcoholism. PAST SURGICAL HISTORY Unobtainable. MEDICATIONS Home medications unobtainable. FAMILY HISTORY Unobtainable. SOCIAL HISTORY Drinks about one gallon of wine a day, and smokes a pack of cigarettes daily. PHYSICAL EXAMINATION VITAL SIGNS: Temperature 98.6, respiratory rate 20, heart rate 89, blood pressure 107/63 on two vasopressors, 95% mechanical ventilation. GENERAL: He is comatose, intubated, sedated, critically ill. NECK: No JVD. No carotid bruits. HEART: Regular rhythm. No murmurs, rubs or gallops. LUNGS: Vented. ABDOMEN: Benign. EXTREMITIES: Warm. No cyanosis or edema. LABORATORY WBC 17.6, hemoglobin 13, hematocrit 41, platelet count 197. INR 2. Lactic acid 8.8 trending down to 4.2, calcium 6.7, phosphorus 5.4. AST 15,183, ALT 4,945. Troponin 0.18. Blood cultures pending results. IMAGING Chest x-ray: There is a 1.6 x 1.4 mass on the left lung. Head CT: There is asymmetry of the sulci with more atrophy and sulcal prominence noted over the left frontal and parietal convexities compared to the right, however, there is no low-density edema or mass effect identified. Abdominopelvic CT: No acute abnormalities. CTA: There is no PE. There is chronic emphysematous changes in the upper lungs. EKG: Sinus rhythm, nonspecific ST changes. ECHOCARDIOGRAM An echocardiogram has been ordered and is still pending. ASSESSMENT AND PLAN 71-year-old male with unknown cardiac history, presenting to the emergency department with cardiac arrest, respiratory failure, and now multiorgan failure with unknown neurological status. He remains critically ill, dependent on pressors. Troponin is minimally elevated. Echo is pending. In the EKG there is no sign of acute coronary syndrome. The second set of troponin is still pending. There is a mass diagnosed in the CT of the lung, likely malignancy. At this point given his neurological status, I would not pursue any aggressive cardiovascular interventions for his cardiac arrest. It seems that he has not been responding to therapy at this point. It is also unclear neurological damage. Recommendations: Continue aggressive medical management and support. Follow up echocardiogram results Thank you for the opportunity to take part in the care of this patient. Will be available on a p.r.n. basis for any other questions or concerns. MD UMESH Cunningham/BT /9:46 AM /10:22 AM ANDREEA
[2017-08-05] MEDS ORDERED: levETIRAcetam 1000 MG INJ 100 ML IV ONE (11:00)
--- NOTE | 2017-08-05 11:25 | HHI.CCPN ---
Subjective Remarks/Hospital Course 08/04: 71-year-old male with history of COPD, alcohol use disorder, presents here as a cardiac arrest with return of spontaneous circulation. The paramedics where called to a house where he was found in asystole. When police arrived, they started CPR. They started epinephrine which put him into ventricular fibrillation. They report one defibrillation which put him in normal sinus rhythm. When [facility] arrived they found him in sinus rhythm and en route he went back into V. fib. He was defibrillated 1 further time and given one further round of epinephrine which brought him back to sinus rhythm with a pulse. Patient's blood pressure was noted to be in the low 100s systolic. He had a Combitube placed by the medics. This was exchanged with a 8.0 ET tube. Patient went back into PEA. ACLS protocol was initiated he was given 1 round of epinephrine which brought him back to pulse with a heart rate in the 70s and 80s. Patient was noted to have a low blood pressure and a dopamine drip was started at 10 mics. Per family report the patient drinks about 1 gallon of wine a day and smokes 2 pack cigarettes daily. 08/05: Remains encephalopathic/sedated, orally intubated on mechanical ventilation. He was noted to have myoclonus this morning. EEG ordered. On Levophed 14 mics per minute. Objective Vital Signs Date Time Temp Pulse Resp B/P (MAP) Pulse Ox O2 Delivery O2 Flow Rate FiO2 08/05/17 08:00 98.6 89 20 107/63 (78) 95 107/60 (76) 08/05/17 07:35 50 08/04/17 18:45 Ventilator Intake and Output 08/05/17 08/05/17 08/06/17 08:00 16:00 00:00 Intake Total 5053 ml Output Total 35 ml Balance 5018 ml Result Diagram: 08/05/17 0413 08/05/17 0413 Imaging Last [address] 08/04/17 1618 Signed Impressions: Service Date/Time: July 17:06 - CONCLUSION: Asymmetry of the sulci with more atrophy and sulcal prominence noted over the left frontal and parietal convexities and paired to the right however there is no low density edema or mass effect identified. A portion of this may be artifactual and due to the patient being slightly tilted in the scanning gantry. Subtle edema is less likely. Further evaluation with MRI imaging could be performed. Ian Maynard MD Chest X-Ray 08/04/178 Signed Impressions: Service Date/Time: July 17:19 - CONCLUSION: 1. Status post intubation. 2. 1.6 x 1.4 cm mass projected over left lung. Further evaluation with chest CT is recommended. Ian Maynard MD Chest X-Ray 08/04/17 Signed Impressions: Service Date/Time: July 20:33 - CONCLUSION: 1. Right subclavian line in good position. 2. Interstitial prominence and pulmonary nodules, the lungs are more fully described in the CT pulmonary angiogram. Interstitial prominence is likely secondary to small nodules that are seen on the CT examination. 1. Martinez Cerda MD CT Angiography 08/04/17 Signed Impressions: Service Date/Time: July 18:44 - CONCLUSION: 1. No pulmonary embolus. 2. Chronic emphysematous change seen in the upper lungs. 3. Numerous patchy areas of focal density seen throughout both lungs. This pattern is most suggestive of post inflammatory change although other processes including neoplasm cannot absolutely be excluded. The patient does have evidence of prior granulomatous exposure. If the patient had signs of infectious/inflammatory change in the lungs, they could be treated and a follow-up CT examination be obtained in two to three months for re-evaluation. Alternatively, one could perform a PET scan to determine if any of these areas are metabolically active. The largest area is seen in the left upper lobe. Martinez Cerda MD Abdomen/Pelvis CT 08/04/17 Signed Impressions: Service Date/Time: July 18:44 - CONCLUSION: 1. No acute abnormality is seen. 2. Mild hepatic steatosis. 3. Mildly prominent retroperitoneal lymph nodes, these are nonspecific. 4. Right renal cysts. Martinez Cerda MD Objective Remarks GENERAL: Elderly comatose gentleman intubated. SKIN: Warm and dry. HEAD: Normocephalic. EYES: No scleral icterus. No injection or drainage. NECK: Supple, trachea midline. No JVD or lymphadenopathy. CARDIOVASCULAR: Regular rate and rhythm without murmurs, gallops, or rubs. RESPIRATORY: Breath sounds equal bilaterally. GASTROINTESTINAL: Abdomen soft, non-tender, nondistended. MUSCULOSKELETAL: No cyanosis, or edema. BACK: Nontender without obvious deformity. NEURO EXAM: GCS: M1 Vt E1 Mental Status: Encephalopathic/sedated, orally intubated, no response to painful stimuli Cranial Nerves: Pupils are round, 2 mm and nonreactive. Reflexes: No clonus. A/P Assessment and Plan Cardiac arrest status post CPR Hypotension Elevated troponin -Continue Levophed for pressor support. Follow-up 2-D echo. Elevated troponin noted. Cardiology consulted and discussed with Dr. Oneil was not planning any intervention in view of poor neurologic exam currently. We'll start aspirin 324 mg now and then 81 mg daily. Anoxic encephalopathy Seizures - On fentanyl. Will start Versed gtt. Keppra 1 g IV bolus followed by 1 g IV every 12 hourly to be started. Neurology consult requested. Acute Respiratory failure - Continue mechanical ventilation - No weaning until neurologically improved - Vent bundle - DuoNeb scheduled and when necessary COPD - DuoNeb scheduled and when necessary - IV steroid - Mechanical ventilation - Follow-up ABG and chest x-ray in the morning Alcohol use disorder - CIWA protocol - Thiamine folate and multivitamins IV DVT GI prophylaxis - Teds SCDs - Subcutaneous heparin - Pepcid Discussed with Dr. Oneil from cardiology. Discussed with patient's family at bedside: explained critical condition including concern for severe anoxic brain injury following cardiac arrest. Encouraged to decide regarding CODE STATUS. Palliative care team consulted to assist with deciding goals of therapy. Critical Care: The total critical care time was 35 minutes. Time to perform other separately billable procedures was not included in the critical care time. Ashu Ortega MD Aug 05, 2017 11:25
--- NOTE | 2017-08-05 11:40 | PD.CONS ---
Consult Service Palliative Care . Consult Requested By Dr. Josie Ortega . Primary Care Physician Unknown . Reason for Consultation a. To assist with evaluation and management of symptoms including: seizure, dyspnea. pain. b. To assist medical decision maker(s) with: better understanding of current medical conditions; weighing benefits/burdens of medical treatment options; making medical treatment decisions. . HPI History of Present Illness Mr. Grossman is a 71 year old male with past medical history of COPD, tobacco and alcohol use. Patient presented to [facility] on 08/04/17 when patient was found down by his roommates and called 911. He had been seen 1 hour prior and had not been feeling well for 1 week prior with flu-like symptoms. Upon police arrival, patient was found in asystole. CPR was started. He was given Epinephrine x 2 , defibrillation x 2 with return of spontaneous circulation. Combitube was placed in the field. He went back into PEA arrest, ACLS was initiated, given epi with ROSC. Patient was hypotensive, pressors were started. Upon arrival to the emergency room: * VS - temp 93.6, pulse 82, resp 16, BP 79/50 Oxygen sat 100% on vent FiO2 50%. * WBC 10.6, hemoglobin 14.6, hematocrit 45.6, platelets 246, neutrophils 64.6% * BUN 40, creatinine 1.98, glucose 55, GFR 33, sodium 142, potassium 4.7, chloride 98 * T bili 0.8, AST 6656, ALT 4451, alk phos 57 * total creatinine kinase 374, CK-MB 1.4, CK-MB% 0.4%, troponin 0.18 * alcohol level - less than 3 * CXR - interstitial prominence and pulmonary nodules. * CTA - no pulmonary embolus, chronic emphysematous change in upper lungs, numerous patchy areas of focal density in both lungs. * CT abd/pelvis - no acute abnormality, mild hepatic steatosis, mildly prominent retroperitoneal lymph node, nonspecific, right renal cysts. * CT head - asymmetry of the sulci more atrophy and sulcal prominence noted over the left frontal and parietal complexities and paired to the right, no edema or mass effect. Patient is admitted to ICU with respiratory failure post cardiac arrest, COPD. Cardiology, Dr. Oneil was consulted for evaluation post cardiac arrest, hypotension. Given patient's mass identified and CT lung concerning for malignancy, neurologic status no aggressive cardiac dimensions are recommended. Echocardiogram pending. Neurology, Dr. Lambert was consulted for possible seizure, likely anoxic injury. On Keppra added Cerebyx, possible imaging if stable. Palliative care is consulted for further clarification of treatment goals. Dr. Ortega and I met with nephew, Anthony Grossman at bedside. Plan to continue aggressive care for now until additional family arrives. Family considering CODE STATUS. Family meeting arranged 08/08/17 at 4pm. After our discussion family received copy of Living WiIl and Durable power of relocation director for healthcare dated 1995 naming friend Roseline Oneil has designated healthcare surrogate. Anthony Grossman, nephew was notified and will include him in family meeting in accordance with his wishes. I attempted to call Kendra Oneil, unable to leave voicemail on phone. . Function/Cognitive Trajectory Patient was feeling weak with flulike symptoms in the week prior to presentation. . Review of Systems ROS Limitations: Intubated (unresponsive, ROS per family and EMR review) Constitutional: COMPLAINS OF: Fatigue, Fever, Chills, Change in appetite ( decreased) Respiratory: COMPLAINS OF: Shortness of breath Cardiovascular: COMPLAINS OF: Chest pain, Dyspnea on Exertion Past Family Social History Uncoded Allergies: unknown (Allergy, Unknown, unknown, 08/04/17) Past Medical History COPD/emphysema chronic tobacco use alcohol use . Past Surgical History Unknown Reported Medications No reported home medications. . Current Medications Medications (Trade) Dose Ordered Sig/Radha Route Start Time Stop Time Status Last Admin (Protonix Inj) 40 mg DAILY@1800 IV PUSH 08/04/17 18:00 08/04/17 22:16 (Duoneb Neb) 1 ampule Q6HR NEB INH 08/04/17 18:00 08/05/17 08:04 (Mariela-Colace) 1 tab BID PO 08/04/17 21:00 08/05/17 08:25 (Milk Of Magnesia Liq) 30 ml Q12H PRN PO 08/04/17 18:00 (Senokot) 17.2 mg Q12H PRN PO 08/04/17 18:00 (Lactulose Liq) 30 ml DAILY PRN PO 08/04/17 18:00 Sodium Chloride 1,000 ml @ 150 mls/hr Q6H40M IV 08/04/17 19:01 08/05/17 02:21 (NS Flush) 2 ml UNSCH PRN IV FLUSH 08/04/17 19:15 (NS Flush) 2 ml BID IV FLUSH 08/04/17 21:00 08/05/17 09:00 (Tylenol) 650 mg Q6H PRN PO 08/04/17 19:15 (Morphine Inj) 2 mg Q2H PRN IV PUSH 08/04/17 19:15 (Pepcid Inj) 10 mg Q12HR IV PUSH 08/04/17 21:00 08/05/17 08:25 (Tears Naturale Opth Soln) 1 drop TID EACH EYE 08/05/17 09:00 08/05/17 08:25 (Zofran Inj) 4 mg Q6H PRN IV PUSH 08/04/17 19:15 (Duoneb Neb) 1 ampule Q2HR NEB PRN INH 08/04/17 19:15 (Heparin Inj) 5,000 units Q8H SQ 08/04/17 20:00 08/05/17 04:22 Miscellaneous Information 1 Q361D XX 08/04/17 19:15 (Chlorhexidine 2% Cloth) 3 pack Taper DAILY@04 TOP 08/05/17 04:00 08/01/18 03:59 08/05/17 04:00 (Chlorhexidine 2% Cloth) 3 pack UNSCH PRN TOP 08/04/17 19:15 (Peridex 0.12% Liq) 15 ml BID@08,20 MT 08/04/17 20:00 08/05/17 08:35 Midazolam HCl 100 ml @ 2 mls/hr TITRATE PRN IV 08/04/17 19:15 08/05/17 09:50 Fentanyl Citrate 250 ml @ 5 mls/hr TITRATE PRN IV 08/04/17 19:15 08/04/17 21:07 (Albumin 5% Inj) 25 gm Q6H IV 08/04/17 20:00 08/05/17 14:01 08/05/17 08:24 Norepinephrine Bitartrate 250 ml @ 7.5 mls/hr TITRATE PRN IV 08/04/17 19:15 08/05/17 04:22 (Romazicon Inj) 0.2 mg Q1M PRN IV PUSH 08/04/17 19:15 (Ativan) 1 mg Q4H PRN PO 08/04/17 19:15 (Ativan Inj) 1 mg Q4H PRN IV PUSH 08/04/17 19:15 (Ativan) 2 mg Q2H PRN PO 08/04/17 19:15 (Ativan Inj) 2 mg Q2H PRN IV PUSH 08/04/17 19:15 (Ativan Inj) 2 mg Q1H PRN IV PUSH 08/04/17 19:15 (Ativan Inj) 2 mg Q15M PRN IV PUSH 08/04/17 19:15 Vasopressin 40 units/Dextrose 100 ml @ 6 mls/hr [id number] IV 08/04/17 23:15 08/05/17 00:08 Dopamine HCl/ Dextrose 500 ml @ 10.328 mls/ hr TITRATE PRN IV 08/05/17 00:00 08/05/17 00:31 (Brethine Inj) 1 mg UNSCH PRN SQ 08/05/17 00:00 (SoluMEDROL INJ) 60 mg Q12HR IV PUSH 08/05/17 09:00 08/05/17 09:09 Levetriacetam 100 ml @ 400 mls/hr BOLUS ONCE IV 08/05/17 11:00 08/05/17 11:14 Levetriacetam 100 ml @ 400 mls/hr Q12HR IV 08/05/17 21:00 Family History Sister suddenly of brain aneurysm. Father of COPD. Mother of stroke. . Substance Use Tobacco: was smoking 2 PPD prior to admission Alcohol: drink 1 gallon of wine daily Prescription med abuse: none Illicits: none . Psychosocial History Previously lived in [place]. Single. No children. Has one living sister, Catherine Ames who lives in [place], anticipated to arrive on Tuesday. One local nephew Anthony Grossman. 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 Was in the [employer]. . Spiritual/Cultural Factors Anabaptism is not an important part of his life, family declines wastewater design engineer support at this time. . Living Will: Copy in medical record Health Care Surrogate: Copy in medical record Date completed: 01/17/1996 . Health Care Surrogate(s): Designated healthcare surrogate: Kendra Oneil, friend. Alternate healthcare surrogate, Yun Danielson. . Documented care wishes: Living Will on chart. . Today's verbally stated goals: Patient incapacitated, unlikely that he will regain capacity. Family/friends goals: Goals remain aggressive at this time, family meeting arranged 08/08/17 4 PM. Family considering code status. . Ethical and Legal Issues Patient currently incapacitated to make his own health care decisions. Living Will/durable power of relocation director for healthcare names, Kendra Oneil as Primary HCS and Yun Danielson as alternate HCS. Decisions will liekly be supported by his nephew, Anthony Grossman and sister, Catherine Ames. . Physical Exam Vital Signs Date Time Temp Pulse Resp B/P (MAP) Pulse Ox O2 Delivery O2 Flow Rate FiO2 08/05/17 10:00 93 115/64 08/05/17 09:30 95 112/61 08/05/17 09:00 94 110/60 08/05/17 08:00 98.6 89 20 107/63 (78) 95 107/60 (76) 08/05/17 08:00 89 107/60 08/05/17 08:00 50 08/05/17 07:45 91 108/60 08/05/17 07:45 98.6 91 21 108/60 (76) 95 08/05/17 07:35 95 50 08/05/17 07:30 98.4 88 20 119/67 (84) 95 08/05/17 07:30 88 119/67 08/05/17 07:15 98.4 88 20 137/73 (94) 95 08/05/17 07:00 87 143/75 08/05/17 07:00 98.2 87 20 140/70 (93) 94 143/75 (97) 08/05/17 06:20 88 125/69 08/05/17 06:00 97.7 88 20 127/71 (89) 95 127/70 (89) 08/05/17 06:00 88 127/70 08/05/17 06:00 88 08/05/17 05:00 50 08/05/17 05:00 97.2 87 20 129/72 (91) 95 133/73 (93) 08/05/17 04:30 92 50 08/05/17 04:22 84 111/64 08/05/17 04:05 94 40 08/05/17 04:00 40 08/05/17 04:00 80 08/05/17 04:00 96.4 80 20 130/67 (88) 98 126/71 (89) 08/05/17 03:00 95.9 78 20 119/65 (83) 93 121/69 (86) 08/05/17 02:00 95.2 80 21 102/56 (71) 94 108/67 (81) 08/05/17 02:00 80 08/05/17 01:52 80 116/70 08/05/17 01:42 80 133/76 08/05/17 01:32 79 138/79 08/05/17 01:22 79 135/78 08/05/17 01:15 95 40 08/05/17 01:12 81 142/81 08/05/17 01:00 80 148/85 08/05/17 01:00 95.2 80 25 155/67 (96) 94 148/85 (106) 08/05/17 00:45 74 118/73 08/05/17 00:31 80 83/57 08/05/17 00:08 79 86/59 08/05/17 00:01 79 83/57 08/05/17 00:00 94.8 79 20 79/55 (63) 93 83/57 (66) 08/05/17 00:00 40 08/05/17 00:00 79 08/04/17 23:00 93.7 81 20 65/47 (53) 91 75/53 (60) 08/04/17 22:17 89 76/51 08/04/17 22:00 89 08/04/17 22:00 95 40 08/04/17 22:00 92.8 89 20 75/52 (60) 92 76/51 (59) 08/04/17 21:35 87 91/60 08/04/17 21:35 87 91/60 08/04/17 21:35 87 91/60 08/04/17 21:30 88 84/57 08/04/17 21:00 91.9 87 20 115/61 (79) 100 104/83 (90) 08/04/17 21:00 87 104/83 08/04/17 20:45 85 113/91 08/04/17 20:30 83 121/97 08/04/17 20:00 50 08/04/17 20:00 91.8 82 20 119/72 (88) 100 117/96 (103) 08/04/17 20:00 82 117/96 08/04/17 20:00 82 08/04/17 19:45 100 50 08/04/17 19:30 83 112/96 08/04/17 19:17 92.4 83 20 102/52 (69) 100 08/04/17 19:15 82 100/87 08/04/17 19:00 82 102/50 08/04/17 18:45 85 18 96/68 (77) 100 Ventilator 08/04/17 18:30 100 100 08/04/17 18:22 82 79/50 08/04/17 18:18 100 50 08/04/17 17:59 93.6 82 16 81/47 (58) 100 Ventilator 08/04/17 17:55 100 08/04/17 17:55 100 100 08/04/17 17:45 82 16 88/51 (63) 100 Ventilator 100 08/04/17 17:20 83 16 92/59 (70) 100 Ventilator 100 08/04/17 17:00 100 08/04/17 16:57 81 18 96/54 (68) 99 Ventilator 100 08/04/17 16:44 100 100 08/04/17 16:43 85 14 131/61 (84) 100 Ventilator 100 08/04/17 16:39 87 16 165/77 (106) 100 Ventilator 100 08/04/17 16:30 80 88/42 08/04/17 16:25 18 97 Ventilator 100 08/04/17 16:24 54 14 136/78 (97) 98 Ventilator 100 Exam CONSTITUTIONAL/GENERAL: This is critically ill, elderly patient, on mechanical ventilation. TUBES/LINES/DRAINS: ETT, OG, right subclavian central line, PIV right AC, bilateral soft wrist restraints,SCDs. SKIN: No jaundice, rashes, or lesions. Ecchymoses on upper extremities. No wounds seen anteriorly. Skin temperature appropriate. Not diaphoretic. HEAD: Atraumatic. Normocephalic. EYES: eyes closed. ENT: unable to assess hearing. Nose without bleeding or purulent drainage. Throat culture visualize secondary to tubes. NECK: Trachea midline. CARDIOVASCULAR: irregular, PVCs, rate 105. RESPIRATORY/CHEST: unlabored respirations on mechanical vent. Clear to auscultation. Breath sounds equal bilaterally. GASTROINTESTINAL: Abdomen soft, mildly distended. Bowel sounds present. GENITOURINARY: Without palpable bladder distension. Zhu catheter in place. MUSCULOSKELETAL: bilateral lower extremity peripheral vascular changes noted dry flaky skin dark. No mottling or clubbing. LYMPHATICS: No palpable cervical or supraclavicular adenopathy. NEUROLOGICAL: Unresponsive. PSYCHIATRIC: Unresponsive. . Diagnostic Tests Laboratory Laboratory Tests Test 08/04/17 16:49 08/04/17 18:00 08/04/17 19:15 08/04/17 21:31 White Blood Count 10.6 TH/MM3 (4.0-11.0) Red Blood Count 4.31 MIL/MM3 (4.50-5.90) Hemoglobin 14.6 GM/DL (13.0-17.0) Hematocrit 45.6 % (39.0-51.0) Mean Corpuscular Volume 105.8 FL (80.0-100.0) Mean Corpuscular Hemoglobin 34.0 PG (27.0-34.0) Mean Corpuscular Hemoglobin Concent 32.1 % (32.0-36.0) Red Cell Distribution Width 13.0 % (11.6-17.2) Platelet Count 246 TH/MM3 (150-450) Mean Platelet Volume 7.3 FL (7.0-11.0) Neutrophils (%) (Auto) 64.6 % (16.0-70.0) Lymphocytes (%) (Auto) 25.6 % (9.0-44.0) Monocytes (%) (Auto) 7.5 % (0.0-8.0) Eosinophils (%) (Auto) 2.1 % (0.0-4.0) Basophils (%) (Auto) 0.2 % (0.0-2.0) Neutrophils # (Auto) 6.8 TH/MM3 (1.8-7.7) Lymphocytes # (Auto) 2.7 TH/MM3 (1.0-4.8) Monocytes # (Auto) 0.8 TH/MM3 (0-0.9) Eosinophils # (Auto) 0.2 TH/MM3 (0-0.4) Basophils # (Auto) 0.0 TH/MM3 (0-0.2) CBC Comment AUTO DIFF Differential Total Cells Counted 100 Neutrophils % (Manual) 57 % (16-70) Band Neutrophils % 1 % (0-6) Lymphocytes % 26 % (9-44) Monocytes % 13 % (0-8) Basophils % 1 % (0-2) Neutrophils # (Manual) 6.4 TH/MM3 (1.8-7.7) Metamyelocytes 2 % (0-1) Nucleated Red Blood Cells 8 /100 WBC (0-0) Differential Comment FINAL DIFF MANUAL Atypical Lymphocytes % (0-0) Platelet Estimate NORMAL (NORMAL) Platelet Morphology Comment NORMAL (NORMAL) Polychromasia 2.0 % (0.0-1.9) Blood Urea Nitrogen 40 MG/DL (7-18) Creatinine 1.98 MG/DL (0.60-1.30) Random Glucose 55 MG/DL (74-106) Total Protein 6.1 GM/DL (6.4-8.2) Albumin 2.2 GM/DL (3.4-5.0) Calcium Level 8.2 MG/DL (8.5-10.1) Alkaline Phosphatase 57 U/L (45-117) Aspartate Amino Transf (AST/SGOT) 6656 U/L (15-37) Alanine Aminotransferase (ALT/SGPT) 4451 U/L (12-78) Total Bilirubin 0.8 MG/DL (0.2-1.0) Sodium Level 141 MEQ/L (136-145) Potassium Level 4.7 MEQ/L (3.5-5.1) Chloride Level 98 MEQ/L (98-107) Carbon Dioxide Level 25.7 MEQ/L (21.0-32.0) Anion Gap 17 MEQ/L (5-15) Estimat Glomerular Filtration Rate 33 ML/MIN (>89) Total Creatine Kinase 374 U/L (39-308) Creatine Kinase MB 1.4 NG/ML (0.5-3.6) Creatine Kinase MB % 0.4 % (0.0-4.0) Troponin I 0.18 NG/ML (0.02-0.05) Ethyl Alcohol Level LESS THAN 3 MG/DL (0-5) Blood Gas Puncture Site LT BRACHIAL Blood Gas Patient Temperature 98.6 Blood Gas HCO3 22 mmol/L (22-26) Blood Gas Base Excess -6.6 mmol/L (-2-2) Blood Gas Oxygen Saturation 98 % (90-100) Arterial Blood pH 7.11 (7.380-7.420) Arterial Blood Partial Pressure CO2 70 mmHg (38-42) Arterial Blood Partial Pressure O2 496 mmHG (61-120) Arterial Blood Oxygen Content 22.5 Vol % (12.0-20.0) Arterial Blood Carboxyhemoglobin 1.6 % (0-4) Arterial Blood Methemoglobin 0.6 % (0-2) Blood Gas Hemoglobin 15.5 G/DL (12.0-16.0) Oxygen Delivery Device VENTILATOR Blood Gas Ventilator Setting Blood Gas Inspired Oxygen 100 % Nasal Screen MRSA (PCR) MRSA NOT DETECTED (NOT Prothrombin Time 23.1 SEC (9.8-11.6) Prothromb Time International Ratio 2.0 RATIO Lactic Acid Level 8.8 mmol/L (0.4-2.0) Test 08/04/17 23:58 08/05/17 04:13 08/05/17 04:20 Lactic Acid Level 7.1 mmol/L (0.4-2.0) 4.2 mmol/L (0.4-2.0) White Blood Count 17.6 TH/MM3 (4.0-11.0) Red Blood Count 4.02 MIL/MM3 (4.50-5.90) Hemoglobin 13.6 GM/DL (13.0-17.0) Hematocrit 41.0 % (39.0-51.0) Mean Corpuscular Volume 102.0 FL (80.0-100.0) Mean Corpuscular Hemoglobin 33.7 PG (27.0-34.0) Mean Corpuscular Hemoglobin Concent 33.0 % (32.0-36.0) Red Cell Distribution Width 13.0 % (11.6-17.2) Platelet Count 197 TH/MM3 (150-450) Mean Platelet Volume 7.4 FL (7.0-11.0) Neutrophils (%) (Auto) 91.5 % (16.0-70.0) Lymphocytes (%) (Auto) 3.3 % (9.0-44.0) Monocytes (%) (Auto) 5.0 % (0.0-8.0) Eosinophils (%) (Auto) 0.0 % (0.0-4.0) Basophils (%) (Auto) 0.2 % (0.0-2.0) Neutrophils # (Auto) 16.1 TH/MM3 (1.8-7.7) Lymphocytes # (Auto) 0.6 TH/MM3 (1.0-4.8) Monocytes # (Auto) 0.9 TH/MM3 (0-0.9) Eosinophils # (Auto) 0.0 TH/MM3 (0-0.4) Basophils # (Auto) 0.0 TH/MM3 (0-0.2) CBC Comment AUTO DIFF Differential Total Cells Counted 100 Neutrophils % (Manual) 45 % (16-70) Band Neutrophils % 46 % (0-6) Lymphocytes % 2 % (9-44) Monocytes % 4 % (0-8) Neutrophils # (Manual) 16.5 TH/MM3 (1.8-7.7) Metamyelocytes 3 % (0-1) Nucleated Red Blood Cells 2 /100 WBC (0-0) Differential Comment FINAL DIFF MANUAL Toxic Granulation 2+ (NORMAL) Platelet Estimate NORMAL (NORMAL) Platelet Morphology Comment NORMAL (NORMAL) Polychromasia 2.0 % (0.0-1.9) Blood Urea Nitrogen 42 MG/DL (7-18) Creatinine 1.96 MG/DL (0.60-1.30) Random Glucose 218 MG/DL (74-106) Total Protein 5.8 GM/DL (6.4-8.2) Albumin 2.9 GM/DL (3.4-5.0) Calcium Level 6.7 MG/DL (8.5-10.1) Phosphorus Level 5.4 MG/DL (2.5-4.9) Magnesium Level 1.8 MG/DL (1.5-2.5) Alkaline Phosphatase 73 U/L (45-117) Aspartate Amino Transf (AST/SGOT) 96003 U/L (15-37) Alanine Aminotransferase (ALT/SGPT) 4945 U/L (12-78) Total Bilirubin 1.7 MG/DL (0.2-1.0) Sodium Level 142 MEQ/L (136-145) Potassium Level 3.5 MEQ/L (3.5-5.1) Chloride Level 105 MEQ/L (98-107) Carbon Dioxide Level 23.1 MEQ/L (21.0-32.0) Anion Gap 14 MEQ/L (5-15) Estimat Glomerular Filtration Rate 34 ML/MIN (>89) Protein Corrected Calcium 7.3 MG/DL (8.5-10.1) Troponin I 4.27 NG/ML (0.02-0.05) Blood Gas Puncture Site ART LINE Blood Gas Patient Temperature 98.6 Blood Gas HCO3 20 mmol/L (22-26) Blood Gas Base Excess -6.1 mmol/L (-2-2) Blood Gas Oxygen Saturation 86 % (90-100) Arterial Blood pH 7.24 (7.380-7.420) Arterial Blood Partial Pressure CO2 49 mmHg (38-42) Arterial Blood Partial Pressure O2 65 mmHg (61-120) Arterial Blood Oxygen Content 15.9 Vol % (12.0-20.0) Arterial Blood Carboxyhemoglobin 1.6 % (0-4) Arterial Blood Methemoglobin 1.1 % (0-2) Blood Gas Hemoglobin 13.1 G/DL (12.0-16.0) Oxygen Delivery Device VENTILATOR Blood Gas Ventilator Setting 20/600/5PEEP Blood Gas Inspired Oxygen 40 % Result Diagram: 08/05/17 0413 08/05/17 0413 Microbiology Microbiology Date/Time Source Procedure Growth Status 08/04/17 21:34 Blood Peripheral Aerobic Blood Culture Pending Received 08/04/17 21:34 Blood Peripheral Anaerobic Blood Culture Pending Received 08/04/17 21:31 Blood Peripheral Aerobic Blood Culture Pending Received 08/04/17 21:31 Blood Peripheral Anaerobic Blood Culture Pending Received Imaging Last Impressions Chest X-Ray 08/05/17 0600 Signed Impressions: Service Date/Time: Saturday, August 05, 2017 03:59 - CONCLUSION: Unchanged pulmonary nodules and interstitial prominence involving the bases. Lines and tubes. Simeon Krishna Jr., MD Head CT 08/04/17 1618 Signed Impressions: Service Date/Time: July 17:06 - CONCLUSION: Asymmetry of the sulci with more atrophy and sulcal prominence noted over the left frontal and parietal convexities and paired to the right however there is no low density edema or mass effect identified. A portion of this may be artifactual and due to the patient being slightly tilted in the scanning gantry. Subtle edema is less likely. Further evaluation with MRI imaging could be performed. Ian Maynard MD CT Angiography 08/04/17 0000 Signed Impressions: Service Date/Time: July 18:44 - CONCLUSION: 1. No pulmonary embolus. 2. Chronic emphysematous change seen in the upper lungs. 3. Numerous patchy areas of focal density seen throughout both lungs. This pattern is most suggestive of post inflammatory change although other processes including neoplasm cannot absolutely be excluded. The patient does have evidence of prior granulomatous exposure. If the patient had signs of infectious/inflammatory change in the lungs, they could be treated and a follow-up CT examination be obtained in two to three months for re-evaluation. Alternatively, one could perform a PET scan to determine if any of these areas are metabolically active. The largest area is seen in the left upper lobe. Martinez Cerda MD Abdomen/Pelvis CT 08/04/17 0000 Signed Impressions: Service Date/Time: July 18:44 - CONCLUSION: 1. No acute abnormality is seen. 2. Mild hepatic steatosis. 3. Mildly prominent retroperitoneal lymph nodes, these are nonspecific. 4. Right renal cysts. Martinez Cerda MD Procedures * 08/04/17 - PEA arrest, intubated, right subclavian central line placed. . Patient/Family Conference Present at Family Conference: Met with nephew at bedside. Family Conference Time (mins): 40 Family Conference Location: Bedside Issues Discussed: * Palliative care role, purpose, approach * Additional medical, psychosocial, and spiritual history * Patients general health, functional status, and cognitive changes in the months leading up to the current hospitalization * Patient/family understanding of the current medical problems * Patient/family understanding of prognosis * Patients goals of care as best understood from advance directives and/or conversations and/or values * Current medical treatment options and benefits/burdens of those options * Likely scenarios comparing ongoing aggressive care with a transition to comfort measures only * Questions answered to the best of my ability * Palliative care contact information provided Assessment and Plan Disease Oriented Problem List: (1) Anoxic encephalopathy (2) ETOHism (3) PEA (Pulseless electrical activity) (4) Renal failure (5) Liver failure, acute (6) Elevated troponin Symptom Scale: (1) Pain 0-10 Scale: Unable to quantify (2) Seizure 0-10 Scale: Unable to quantify (3) Dyspnea 0-10 Scale: Unable to quantify Pertinent Non-Medical Issues Psychosocial: Single. No children. Supported by roommates, nephew and sister. Spiritual: family declines wastewater design engineer support, adventism is not an important part of the patient's life. Legal: Patient currently incapacitated to make his own health care decisions. Living Will/durable power of relocation director for healthcare names, Kendra Oneil as Primary HCS and Yun Jagjit as alternate HCS. Decisions will likely be supported by his nephew, Anthony Grossman and sister, Catherine Ames. Ethical issues impacting care: no known concerns at this time. . Important Contacts * Kendra Oneil, friend/HCS: [phone] * Anthony Grossman nephew: [phone] Works at [employer] * Genny Grossman (nephews ): [phone] . Prognosis Mr. Grossman is a 71-year-old male with underlying COPD, chronic alcohol and tobacco use admitted post cardiac arrest with respiratory failure, renal failure , liver failure and likely anoxic injury with seizure activity not a candidate for cardiac intervention. Overall prognosis appears poor for meaningful recovery. . Plan * Decision Maker: Patient currently incapacitated to make his own health care decisions. Living Will/durable power of relocation director for healthcare names, Kendra Oneil as Primary HCS and Yun Danielson as alternate HCS. Decisions will likely be supported by his nephew, Anthony Grossman and sister, Catherine Ames. * FULL CODE - considering code status decision * Palliative care met with stacyAnthony start bedside with Dr. Ortega. Plan to continue aggressive care for now until additional family arrives. Family considering CODE STATUS. Family meeting arranged 08/08/17 at 4pm. After our discussion family received copy of Living WiIl and Durable power of relocation director for healthcare dated 1995 naming friend Roseline Oneil has designated healthcare surrogate. stacy Barrow was notified and will include him in family meeting in accordance with his wishes. I attempted to call Kendra Oneil, unable to leave voicemail on phone. Anthony assures me Kendra will be at family meeting on Tuesday08/08/17 at 4pm. * SYMPTOMS: Pain: on Fentanyl drip. No obvious signs of pain. Dyspnea: on mech vent. Seizure: on Keppra, Cerebyx added. No visible seizure noted. No new medication recommendations at this time. * Palliative care number provided. * Palliative care will continue to follow throughout hospital course to assist with symptom management and clarification of goals as needed. Thank you for the opportunity to participate in the care of Mr. Grossman. Attestation To help prompt me to consider important information that might be impacting today's encounter and assessment, information from prior notes written by myself or my colleagues may have been "brought forward" into today's note. My signature on this note, however, is an attestation that I personally performed the exam, history, and/or decision-making noted today, and, unless otherwise indicated, the interactions with patient, family, and staff as well as the review of records all occurred today. I also attest that the listed assessment and stated plan reflect my best clinical judgment today based on the combination of historical information, prior notes, and today's exam/ interactions. When time spent is documented, it refers only to time spent today by the signer, or if indicated, combined time spent today by collaborating physician/nurse practitioner. Sandie Kenney Aug 05, 2017 11:40
[2017-08-05] MEDS ORDERED: ASPIRIN 81 MG CHEW TAB OG-TUBE STA (12:19)
[2017-08-05] MEDS: fentaNYL DRIP 250 ML IV PRN (13:03)
--- NOTE | 2017-08-05 15:04 | PD.CONS ---
History of Present Illness Service Neurology Consult Requested By [facility] Reason for Consult coma Primary Care Physician Unknown History of Present Illness 71-year-old male with history of COPD, alcohol use disorder, presents here as a cardiac arrest with return of spontaneous circulation. went into PEA x 2 and then hypotensive. intubated and in icu. seen by palliative care service. ct brain naicp. elevated trop, lft's kidney failure with elevated lactic acid level. noted to have involuntary movements of face/rt le. started on fentanyl, versed gtt. also, keppra added. Review of Systems ROS Unobtainable patient is comatose and intubated Past Family Social History Allergies: Uncoded Allergies: unknown (Allergy, Unknown, unknown, 08/04/17) Past Medical History COPD Alcoholism Past Surgical History Unobtainable Reported Medications Unobtainable Family History Unobtainable Social History Drinks about 1 gallon of wine daily Smokes pack per da Review of Systems All other ROS: Unable to obtain Past Family Social History Allergies: Uncoded Allergies: unknown (Allergy, Unknown, unknown, 08/04/17) Active Ordered Medications Current Medications Medications (Trade) Dose Ordered Sig/Radha Route Start Time Stop Time Status Last Admin (Protonix Inj) 40 mg DAILY@1800 IV PUSH 08/04/17 18:00 08/04/17 22:16 (Duoneb Neb) 1 ampule Q6HR NEB INH 08/04/17 18:00 08/05/17 14:26 (Mariela-Colace) 1 tab BID PO 08/04/17 21:00 08/05/17 08:25 (Milk Of Magnesia Liq) 30 ml Q12H PRN PO 08/04/17 18:00 (Senokot) 17.2 mg Q12H PRN PO 08/04/17 18:00 (Lactulose Liq) 30 ml DAILY PRN PO 08/04/17 18:00 Sodium Chloride 1,000 ml @ 150 mls/hr Q6H40M IV 08/04/17 19:01 08/05/17 11:00 (NS Flush) 2 ml UNSCH PRN IV FLUSH 08/04/17 19:15 (NS Flush) 2 ml BID IV FLUSH 08/04/17 21:00 08/05/17 09:00 (Tylenol) 650 mg Q6H PRN PO 08/04/17 19:15 (Morphine Inj) 2 mg Q2H PRN IV PUSH 08/04/17 19:15 (Pepcid Inj) 10 mg Q12HR IV PUSH 08/04/17 21:00 08/05/17 08:25 (Tears Naturale Opth Soln) 1 drop TID EACH EYE 08/05/17 09:00 08/05/17 12:33 (Zofran Inj) 4 mg Q6H PRN IV PUSH 08/04/17 19:15 (Duoneb Neb) 1 ampule Q2HR NEB PRN INH 08/04/17 19:15 (Heparin Inj) 5,000 units Q8H SQ 08/04/17 20:00 08/05/17 11:00 Miscellaneous Information 1 Q361D XX 08/04/17 19:15 (Chlorhexidine 2% Cloth) 3 pack Taper DAILY@04 TOP 08/05/17 04:00 08/01/18 03:59 08/05/17 04:00 (Chlorhexidine 2% Cloth) 3 pack UNSCH PRN TOP 08/04/17 19:15 (Peridex 0.12% Liq) 15 ml BID@08,20 MT 08/04/17 20:00 08/05/17 08:35 Midazolam HCl 100 ml @ 2 mls/hr TITRATE PRN IV 08/04/17 19:15 08/05/17 09:50 Fentanyl Citrate 250 ml @ 5 mls/hr TITRATE PRN IV 08/04/17 19:15 08/05/17 13:03 Norepinephrine Bitartrate 250 ml @ 7.5 mls/hr TITRATE PRN IV 08/04/17 19:15 08/05/17 10:30 (Romazicon Inj) 0.2 mg Q1M PRN IV PUSH 08/04/17 19:15 (Ativan) 1 mg Q4H PRN PO 08/04/17 19:15 (Ativan Inj) 1 mg Q4H PRN IV PUSH 08/04/17 19:15 (Ativan) 2 mg Q2H PRN PO 08/04/17 19:15 (Ativan Inj) 2 mg Q2H PRN IV PUSH 08/04/17 19:15 (Ativan Inj) 2 mg Q1H PRN IV PUSH 08/04/17 19:15 (Ativan Inj) 2 mg Q15M PRN IV PUSH 08/04/17 19:15 Vasopressin 40 units/Dextrose 100 ml @ 6 mls/hr [id number] IV 08/04/17 23:15 08/05/17 00:08 Dopamine HCl/ Dextrose 500 ml @ 10.328 mls/ hr TITRATE PRN IV 08/05/17 00:00 08/05/17 00:31 (Brethine Inj) 1 mg UNSCH PRN SQ 08/05/17 00:00 (SoluMEDROL INJ) 60 mg Q12HR IV PUSH 08/05/17 09:00 08/05/17 09:09 Levetriacetam 100 ml @ 400 mls/hr Q12HR IV 08/05/17 21:00 (Aspirin Chew) 81 mg DAILY OG-TUBE 08/06/17 09:00 Exam I&O / VS 08/05/17 08/05/17 08/06/17 15:00 23:00 07:00 Intake Total 1000 ml Balance 1000 ml Intake IV Total 1000 ml Vital Signs Date Time Temp Pulse Resp B/P (MAP) Pulse Ox O2 Delivery O2 Flow Rate FiO2 08/05/17 14:25 92 102/60 08/05/17 14:00 99.9 92 20 101/62 (75) 95 100/59 (73) 08/05/17 13:46 93 104/61 08/05/17 13:00 99.7 92 20 102/71 (81) 95 102/60 (74) 08/05/17 12:00 99.5 92 20 103/70 (81) 96 104/61 (75) 08/05/17 12:00 50 08/05/17 12:00 92 08/05/17 11:21 96 50 08/05/17 10:30 93 116/65 08/05/17 10:00 99.1 93 20 114/74 (87) 96 115/64 (81) 08/05/17 10:00 93 115/64 08/05/17 10:00 93 08/05/17 09:30 95 112/61 08/05/17 09:00 99.0 94 20 109/68 (82) 97 110/60 (77) 08/05/17 09:00 94 110/60 08/05/17 08:00 98.6 89 20 107/63 (78) 95 107/60 (76) 08/05/17 08:00 89 107/60 08/05/17 08:00 50 08/05/17 07:45 91 108/60 08/05/17 07:45 98.6 91 21 108/60 (76) 95 08/05/17 07:35 95 50 08/05/17 07:30 98.4 88 20 119/67 (84) 95 08/05/17 07:30 88 119/67 08/05/17 07:15 98.4 88 20 137/73 (94) 95 08/05/17 07:00 87 143/75 08/05/17 07:00 98.2 87 20 140/70 (93) 94 143/75 (97) 08/05/17 06:20 88 125/69 08/05/17 06:00 97.7 88 20 127/71 (89) 95 127/70 (89) 08/05/17 06:00 88 127/70 08/05/17 06:00 88 08/05/17 05:00 50 08/05/17 05:00 97.2 87 20 129/72 (91) 95 133/73 (93) 08/05/17 04:30 92 50 08/05/17 04:22 84 111/64 08/05/17 04:05 94 40 08/05/17 04:00 40 08/05/17 04:00 80 08/05/17 04:00 96.4 80 20 130/67 (88) 98 126/71 (89) 08/05/17 03:00 95.9 78 20 119/65 (83) 93 121/69 (86) 08/05/17 02:00 95.2 80 21 102/56 (71) 94 108/67 (81) 08/05/17 02:00 80 08/05/17 01:52 80 116/70 08/05/17 01:42 80 133/76 08/05/17 01:32 79 138/79 08/05/17 01:22 79 135/78 08/05/17 01:15 95 40 08/05/17 01:12 81 142/81 08/05/17 01:00 80 148/85 08/05/17 01:00 95.2 80 25 155/67 (96) 94 148/85 (106) 10/6/17 00:45 74 118/73 08/05/17 00:31 80 83/57 08/05/17 00:08 79 86/59 08/05/17 00:01 79 83/57 08/05/17 00:00 94.8 79 20 79/55 (63) 93 83/57 (66) 08/05/17 00:00 40 08/05/17 00:00 79 08/04/17 23:00 93.7 81 20 65/47 (53) 91 75/53 (60) 08/04/17 22:17 89 76/51 08/04/17 22:00 89 08/04/17 22:00 95 40 08/04/17 22:00 92.8 89 20 75/52 (60) 92 76/51 (59) 08/04/17 21:35 87 91/60 08/04/17 21:35 87 91/60 08/04/17 21:35 87 91/60 08/04/17 21:30 88 84/57 08/04/17 21:00 91.9 87 20 115/61 (79) 100 104/83 (90) 08/04/17 21:00 87 104/83 08/04/17 20:45 85 113/91 08/04/17 20:30 83 121/97 08/04/17 20:00 50 08/04/17 20:00 91.8 82 20 119/72 (88) 100 117/96 (103) 08/04/17 20:00 82 117/96 08/04/17 20:00 82 08/04/17 19:45 100 50 08/04/17 19:30 83 112/96 08/04/17 19:17 92.4 83 20 102/52 (69) 100 08/04/17 19:15 82 100/87 08/04/17 19:00 82 102/50 08/04/17 18:45 85 18 96/68 (77) 100 Ventilator 08/04/17 18:30 100 100 17 18:22 82 79/50 08/04/17 18:18 100 50 08/04/17 17:59 93.6 82 16 81/47 (58) 100 Ventilator 08/04/17 17:55 100 17 17:55 100 100 08/04/17 17:45 82 16 88/51 (63) 100 Ventilator 100 08/04/17 17:20 83 16 92/59 (70) 100 Ventilator 100 08/04/17 17:00 100 08/04/17 16:57 81 18 96/54 (68) 99 Ventilator 100 08/04/17 16:44 100 100 08/04/17 16:43 85 14 131/61 (84) 100 Ventilator 100 08/04/17 16:39 87 16 165/77 (106) 100 Ventilator 100 08/04/17 16:30 80 88/42 08/04/17 16:25 18 97 Ventilator 100 08/04/17 16:24 54 14 136/78 (97) 98 Ventilator 100 Exam Comments coma state. intubated. on low dose versed. non-verbal/not following. mild proptosis, ou 2mm slightly irregular l>rt. questionably reactive, no corneal, no oculocephalics, +tongue thrusting episodes, no limb movement Review/Management Diagnosis/Plan: (1) Anoxic encephalopathy ICD Codes: G93.1 - Anoxic brain damage, not elsewhere classified Status: Acute Plan: impaired cortical and brainstem reflexes post anoxic involuntary movements- epileptic vs non-epileptic myoclonic activity recs f/u eeg iv cerebryx added repeat neuroimaging when medically feasible follow exam d/w rn prognosis guarded with MODS (2) PEA (Pulseless electrical activity) ICD Codes: I46.9 - Cardiac arrest, cause unspecified Status: Acute (3) Elevated troponin ICD Codes: R74.8 - Abnormal levels of other serum enzymes Status: Acute (4) Renal failure ICD Codes: N19 - Unspecified kidney failure Status: Acute (5) Liver failure, acute ICD Codes: K72.00 - Acute and subacute hepatic failure without coma Status: Acute (6) ETOHism ICD Codes: F10.20 - Alcohol dependence, uncomplicated Status: Chronic Delvis Lambert MD Aug 05, 2017 15:04
--- NOTE | 2017-08-05 16:56 | MG ---
cc: VIVIANE ABDUL MD Lab No: [id number] Date: 08/05/17 Age: Sex: M Race: DATE OF : 1945 A 71-year-old, history of cardiac arrest, PEA, jerking movements. MEDICATIONS ____ Fentanyl Burst suppression pattern noted with suppression, flat line EEG lasting 10, 20,30 seconds at a time. Bursts of disorganized theta and delta activity beginning of the burst with frontal sharp waves isolated. No driving with photic stimulation. Single lead EKG showing sinus rhythm. INTERPRETATION Burst suppression pattern, long episodes of suppression. This can be seen in patients severe anoxic encephalopathies and can portend a poor prognosis. Clinical correlation. MD KENYON Lyon/ /4:41 PM /4:49 PM
--- NOTE | 2017-08-05 17:14 | ECHRPT ---
Indication: HEART FAILURE CONCLUSIONS Normal left ventricular size. Wall thickness is normal. The left ventricular systolic function is grossly normal on limited imaging. The right ventricle is moderately dilated. The right ventricular systoilc function is mildly decreased. There is moderate tricuspid regurgitation. The estimated pulmonary arterial pressure is 54.4 mmHg. BP: 107 / 60 HR: Rhythm: Sinus MEASUREMENTS (Male / Female) Normal Values Technical Quality:Very technically difficult study DOPPLER AV Peak Velocity 102.0 cm/s AV Peak Gradient 4.2 mmHg AV Mean Gradient 2.0 mmHg AV Velocity Time Integral 13.8 cm LVOT Peak Velocity 54.1 cm/s LVOT Peak Gradient 1.2 mmHg LVOT Velocity Time Integral 10.0 cm Mitral E Point Velocity 42.6 cm/s Mitral A Point Velocity 59.0 cm/s Mitral E to A Ratio 0.7 LV E' Lateral Velocity 7.7 cm/s Mitral E to LV E' Lateral Ratio 5.5 LV E' Septal Velocity 5.8 cm/s Mitral E to LV E' Septal Ratio 7.4 TR Peak Velocity 314.0 cm/s TR Peak Gradient 39.4 mmHg Right Atrial Pressure 15.0 mmHg Pulmonary Artery Systolic Pressu 54.4 mmHg Right Ventricular Systolic Press 54.4 mmHg FINDINGS LEFT VENTRICLE Normal left ventricular size. Wall thickness is normal. The left ventricular systolic function is grossly normal on limited imaging. RIGHT VENTRICLE The right ventricle is moderately dilated. The right ventricular systoilc function is mildly decreased. TRICUSPID VALVE There is moderate tricuspid regurgitation. The estimated pulmonary arterial pressure is 54.4 mmHg. Chava Santiago MD (Electronically Signed) Final Date:05 August 2017 17:13
[2017-08-05] MEDS: PANTOPRAZOLE SODIUM 40 MG VIAL IV PUSH SCH (17:49)
[2017-08-05] MEDS ORDERED: FOSPHENYTOIN INJ 1,000 MGPE in SODIUM CHLORIDE 0.9% INJ 50 ML IV ONE (18:00)
[2017-08-05] MEDS: FOSPHENYTOIN SODIUM 100 MG PE/2 ML VIAL IV SCH (20:03)
[2017-08-05] MEDS: levETIRAcetam 1000 MG INJ 100 ML IV SCH (20:30)
[2017-08-06] VITALS (31 sets, daily range): BP systolic 93–125; BP diastolic 50–82; PULSE 90–124; RESP 20; TEMP 99.1; O2SAT 94–99
[2017-08-06] MEDS: SODIUM CHLOR 0.9% 1000 ML INJ 1,000 ML IV SCH ×2 (01:18→07:31)
[2017-08-06] MEDS: NOREPINEPHRINE-DEXTROSE DRIP 250 ML IV PRN ×3 (03:25→23:08)
[2017-08-06] MEDS: CHLORHEXIDINE GLUCONATE 2 % 1 PACK (2 CLOTHS) TOP SCH (03:25)
[2017-08-06] MEDS: RESP: ALBUTEROL 2.5 MG/IPRATROPIUM 0.5 MG NEB (SCH) INH ×4 (04:00→19:53)
[2017-08-06 05:15] LABS: AUTOMATED NEUTROPHIL # 29.5 TH/MM3 (1.8-7.7); BASOPHIL % 0.1 % (0.0-2.0); HEMATOCRIT 42.2 % (39.0-51.0); LYMPH % 3.1 % (9.0-44.0); MEAN CELL VOLUME 102.1 FL (80.0-100.0); MEAN CORPUSCULAR HEMOGLOBIN 33.9 PG (27.0-34.0); MEAN CORPUSCULAR HGB CONC 33.2 % (32.0-36.0); NEUT % 93.8 % (16.0-70.0); PLATELET COUNT 172 TH/MM3 (150-450); RED BLOOD COUNT 4.13 MIL/MM3 (4.50-5.90); RED CELL DISTRIBUTION WIDTH 13.4 % (11.6-17.2); WHITE BLOOD COUNT 31.4 TH/MM3 (4.0-11.0)
[2017-08-06] MEDS: HEPARIN SODIUM - SQ 10,000 UNITS/ML VIAL SQ SCH ×3 (05:26→20:21)
--- NOTE | 2017-08-06 05:27 | EKG ---
Date Performed: 08/04/2017 Time Performed: 19:57:21 PTAGE: 71 years EKG: Sinus rhythm LOW QRS VOLTAGE IN PRECORDIAL LEADS PROLONGED QT INTERVAL ABNORMAL ECG PREVIOUS TRACING : 08/04/2017 16.18 DOCTOR: Chava Santiago Interpretating Date/Time 08/06/2017 05:16:57
--- NOTE | 2017-08-06 05:28 | EKG ---
Date Performed: 08/04/2017 Time Performed: 16:18:54 PTAGE: 71 years EKG: Sinus rhythm LOW QRS VOLTAGE IN EXTREMITY LEADS MODERATE INTRAVENTRICULAR CONDUCTION DELAY PROLONGED QT INTERVAL ABNORMAL ECG INTERPRETATION BASED ON A DEFAULT AGE OF 40 YEARS NO PREVIOUS TRACING DOCTOR: Chava Santiago Interpretating Date/Time 08/06/2017 05:17:09
--- NOTE | 2017-08-06 05:28 | EKG ---
Date Performed: 08/04/2017 Time Performed: 18:13:06 PTAGE: 71 years EKG: Sinus rhythm LOW QRS VOLTAGE IN PRECORDIAL LEADS PROLONGED QT INTERVAL ABNORMAL ECG NO PREVIOUS TRACING DOCTOR: Chava Santiago Interpretating Date/Time 08/06/2017 05:17:05
[2017-08-06 05:31] LABS: BICARBONATE 21.8 MEQ/L (21.0-32.0)
[2017-08-06 05:33] LABS: HEMO FLAGS AUTO DIFF
[2017-08-06 05:45] LABS: CALCIUM-PROTEIN CORRECTED 7.7 MG/DL (8.5-10.1); TOTAL BILIRUBIN ADULT 1.5 MG/DL (0.2-1.0)
[2017-08-06] MEDS: CHLORHEXIDINE 0.12% (ORAL KIT) 15 ML CUP MT SCH ×2 (08:00→20:00)
[2017-08-06 08:54] LABS: BANDS 63 % (0-6); CORRECTED NUCLEATED RBC 7 /100 WBC (0-0); MYELOCYTES 1 % (0-0); NEUTROPHIL # MANUAL DIFF 30.8 TH/MM3 (1.8-7.7); PLATELET ESTIMATE SMEAR NORMAL (NORMAL); PLATELET MORPHOLOGY NORMAL (NORMAL); POLYS (SEG NEUTROPHILS) 34 % (16-70); SCAN/DIFF FINAL DIFF MANUAL; TOXIC GRANULATION 1+ (NORMAL); WBC DIFF SAMPLE 100
[2017-08-06 08:55] LABS: TOXIC VACUOLATION PRESENT (NONE SEEN)
[2017-08-06] MEDS: FOSPHENYTOIN SODIUM 100 MG PE/2 ML VIAL IV SCH (09:00)
[2017-08-06] MEDS: ARTIFICIAL TEARS OPTH SOLN 15 ML BTL EACH EYE SCH ×3 (09:00→18:00)
[2017-08-06] MEDS: SODIUM CHLORIDE 0.9% FLUSH 10 ML FLUSH IV FLUSH SCH ×2 (09:00→20:21)
[2017-08-06] MEDS: VASOPRESSIN INJ 40 UNITS in DEXTROSE 5% IN WATER 100ML INJ 98 ML IV SCH ×2 (09:10)
[2017-08-06] MEDS: levETIRAcetam 1000 MG INJ 100 ML IV SCH ×2 (09:11→20:20)
[2017-08-06] MEDS: methylPREDNISolone SOD SUCC 125 MG/2 ML VIAL IV PUSH SCH ×2 (09:14→20:20)
[2017-08-06] MEDS: DOCUSATE SODIUM 50 MG/SENNA 8.6 MG TAB PO SCH ×2 (09:16→20:20)
[2017-08-06] MEDS: ASPIRIN 81 MG CHEW TAB OG-TUBE SCH (09:17)
[2017-08-06] MEDS: FAMOTIDINE 20 MG/2 ML VIAL IV PUSH SCH ×2 (09:18→20:20)
--- NOTE | 2017-08-06 10:57 | HHI.CCPN ---
Subjective Remarks/Hospital Course 08/04: 71-year-old male with history of COPD, alcohol use disorder, presents here as a cardiac arrest with return of spontaneous circulation. The paramedics where called to a house where he was found in asystole. When police arrived, they started CPR. They started epinephrine which put him into ventricular fibrillation. They report one defibrillation which put him in normal sinus rhythm. When [facility] arrived they found him in sinus rhythm and en route he went back into V. fib. He was defibrillated 1 further time and given one further round of epinephrine which brought him back to sinus rhythm with a pulse. Patient's blood pressure was noted to be in the low 100s systolic. He had a Combitube placed by the medics. This was exchanged with a 8.0 ET tube. Patient went back into PEA. ACLS protocol was initiated he was given 1 round of epinephrine which brought him back to pulse with a heart rate in the 70s and 80s. Patient was noted to have a low blood pressure and a dopamine drip was started at 10 mics. Per family report the patient drinks about 1 gallon of wine a day and smokes 2 pack cigarettes daily. 08/05: Remains encephalopathic/sedated, orally intubated on mechanical ventilation. He was noted to have myoclonus this morning. EEG ordered. On Levophed 14 mics per minute. 08/06: no meaningful improvements. remains severely encephalopathic. remains on vasopressors and in shock. kidney injury worse today. plan for family meeting tuesday, but for now goals remain aggressive. Objective Vital Signs Date Time Temp Pulse Resp B/P (MAP) Pulse Ox O2 Delivery O2 Flow Rate FiO2 08/06/17 09:10 94 111/66 08/06/17 08:38 98 50 08/06/17 06:00 99.7 20 08/04/17 18:45 Ventilator Intake and Output 08/06/17 08/06/17 08/07/17 08:00 16:00 00:00 Intake Total 2568 ml Output Total 30 ml Balance 2538 ml Result Diagram: 08/06/17 0405 08/06/17 0405 Imaging Last [address] 08/04/17 6588 Signed Impressions: Service Date/Time: July 17:06 - CONCLUSION: Asymmetry of the sulci with more atrophy and sulcal prominence noted over the left frontal and parietal convexities and paired to the right however there is no low density edema or mass effect identified. A portion of this may be artifactual and due to the patient being slightly tilted in the scanning gantry. Subtle edema is less likely. Further evaluation with MRI imaging could be performed. Ian Maynard MD Chest X-Ray 08/04/17 1618 Signed Impressions: Service Date/Time: July 17:19 - CONCLUSION: 1. Status post intubation. 2. 1.6 x 1.4 cm mass projected over left lung. Further evaluation with chest CT is recommended. Ian Maynard MD Chest X-Ray 08/04/17 Signed Impressions: Service Date/Time: July 20:33 - CONCLUSION: 1. Right subclavian line in good position. 2. Interstitial prominence and pulmonary nodules, the lungs are more fully described in the CT pulmonary angiogram. Interstitial prominence is likely secondary to small nodules that are seen on the CT examination. 1. Martinez Cerda MD CT Angiography 08/04/17 Signed Impressions: Service Date/Time: July 18:44 - CONCLUSION: 1. No pulmonary embolus. 2. Chronic emphysematous change seen in the upper lungs. 3. Numerous patchy areas of focal density seen throughout both lungs. This pattern is most suggestive of post inflammatory change although other processes including neoplasm cannot absolutely be excluded. The patient does have evidence of prior granulomatous exposure. If the patient had signs of infectious/inflammatory change in the lungs, they could be treated and a follow-up CT examination be obtained in two to three months for re-evaluation. Alternatively, one could perform a PET scan to determine if any of these areas are metabolically active. The largest area is seen in the left upper lobe. Martinez Cedra MD Abdomen/Pelvis CT 08/04/17 Signed Impressions: Service Date/Time: July 18:44 - CONCLUSION: 1. No acute abnormality is seen. 2. Mild hepatic steatosis. 3. Mildly prominent retroperitoneal lymph nodes, these are nonspecific. 4. Right renal cysts. Martinez Cerda MD Objective Remarks GENERAL: Elderly comatose gentleman intubated. SKIN: Warm and dry. HEAD: Normocephalic. EYES: No scleral icterus. No injection or drainage. NECK: trachea midline. No JVD CARDIOVASCULAR: normal rate, regular rhythm. sinus by tele. RESPIRATORY: PRVC. fio2 50%. peep 5. equal chest rise. GASTROINTESTINAL: Abdomen soft, non-tender, nondistended. MUSCULOSKELETAL: No cyanosis, or edema. NEURO EXAM: GCS 3. pupils 2mm, equal reactive. RASS -5. A/P Assessment and Plan Assessment: 71yM with severe anoxic encephalopathy s/p cardiac arrest. poor prognosis. associated multiorgan failure which is not improving. off pathway. goals remain aggressive until family meeting 08/08. very critically ill. Cardiac arrest status post CPR Hypotension Elevated troponin -Continue Levophed and vasopressin for pressor support. Elevated troponin noted. Cardiology consulted and discussed with Dr. Oneil was not planning any intervention in view of poor neurologic exam currently. ASA 81 mg daily. Anoxic encephalopathy Seizures - hold sedating meds. repeat EEG without evidence of seizures, but with evidence of severe anoxia. will obtain MRI today for prognostication. Neuro consulted. Acute kidney injury - worsening. - likely secondary to shock - no indication for emergent dialysis at this time, and with neurologic status, HD unlikely to be beneficial. Acute hypoxic and hypercarbic Respiratory failure - Continue mechanical ventilation - No weaning until neurologically improved - Vent bundle - DuoNeb scheduled and when necessary - off pathway COPD - DuoNeb scheduled and when necessary - IV steroid - Mechanical ventilation Alcohol use disorder - d/c ciwa protocol, unlikely to exhibit withdraw symptoms given severe anoxia. - Thiamine folate and multivitamins IV DVT GI prophylaxis - Teds SCDs - Subcutaneous heparin - Pepcid Discussed with Dr. Oneil from cardiology. Critical care time: 32 minutes, exclusive of separately billable procedures. Judson Campbell MD Aug 06, 2017 10:57
--- NOTE | 2017-08-06 11:59 | HHI.PR ---
Review/Management Diagnosis/Plan: (1) Anoxic encephalopathy ICD Codes: G93.1 - Anoxic brain damage, not elsewhere classified Status: Acute Plan: impaired cortical and brainstem reflexes post anoxic involuntary movements- appear to be non-epileptic myoclonic activity recs eeg- burst suppression before versed gtt d/c iv cerebryx d/w ccm prognosis appears to be poor with current neuro exam, MODS (2) PEA (Pulseless electrical activity) ICD Codes: I46.9 - Cardiac arrest, cause unspecified Status: Acute (3) Elevated troponin ICD Codes: R74.8 - Abnormal levels of other serum enzymes Status: Acute (4) Renal failure ICD Codes: N19 - Unspecified kidney failure Status: Acute (5) Liver failure, acute ICD Codes: K72.00 - Acute and subacute hepatic failure without coma Status: Acute (6) ETOHism ICD Codes: F10.20 - Alcohol dependence, uncomplicated Status: Chronic Subjective Subjective Comments No acute events reported Active Medications Current Medications Medications (Trade) Dose Ordered Sig/Radha Route Start Time Stop Time Status Last Admin (Duoneb Neb) 1 ampule Q6HR NEB INH 08/04/17 18:00 08/06/17 08:38 (Mariela-Colace) 1 tab BID PO 08/04/17 21:00 08/06/17 09:16 (Milk Of Magnesia Liq) 30 ml Q12H PRN PO 08/04/17 18:00 (Senokot) 17.2 mg Q12H PRN PO 08/04/17 18:00 (Lactulose Liq) 30 ml DAILY PRN PO 08/04/17 18:00 (NS Flush) 2 ml UNSCH PRN IV FLUSH 08/04/17 19:15 (NS Flush) 2 ml BID IV FLUSH 08/04/17 21:00 08/06/17 09:00 (Tylenol) 650 mg Q6H PRN PO 08/04/17 19:15 (Pepcid Inj) 10 mg Q12HR IV PUSH 08/04/17 21:00 08/06/17 09:18 (Tears Naturale Opth Soln) 1 drop TID EACH EYE 08/05/17 09:00 08/06/17 09:00 (Zofran Inj) 4 mg Q6H PRN IV PUSH 08/04/17 19:15 (Duoneb Neb) 1 ampule Q2HR NEB PRN INH 08/04/17 19:15 (Heparin Inj) 5,000 units Q8H SQ 08/04/17 20:00 08/06/17 05:26 Miscellaneous Information 1 Q361D XX 08/04/17 19:15 (Chlorhexidine 2% Cloth) 3 pack Taper DAILY@04 TOP 08/05/17 04:00 08/01/18 03:59 08/06/17 03:25 (Chlorhexidine 2% Cloth) 3 pack UNSCH PRN TOP 08/04/17 19:15 (Peridex 0.12% Liq) 15 ml BID@08,20 MT 08/04/17 20:00 08/06/17 08:00 Norepinephrine Bitartrate 250 ml @ 7.5 mls/hr TITRATE PRN IV 08/04/17 19:15 08/06/17 03:25 (Romazicon Inj) 0.2 mg Q1M PRN IV PUSH 08/04/17 19:15 Vasopressin 40 units/Dextrose 100 ml @ 6 mls/hr [id number] IV 08/04/17 23:15 08/06/17 09:10 (SoluMEDROL INJ) 60 mg Q12HR IV PUSH 08/05/17 09:00 08/06/17 09:14 Levetriacetam 100 ml @ 400 mls/hr Q12HR IV 08/05/17 21:00 08/06/17 09:11 (Aspirin Chew) 81 mg DAILY OG-TUBE 08/06/17 09:00 08/06/17 09:17 (Cerebyx Inj) 200 mgpe Q12HR IV 08/05/17 21:00 08/06/17 09:00 Allergies Allergies Uncoded Allergies unknown ( Allergy, Unknown, unknown, 08/04/17) Review of Systems All other ROS: Unable to obtain Exam I&O / VS Vital Signs Date Time Temp Pulse Resp B/P (MAP) Pulse Ox O2 Delivery O2 Flow Rate FiO2 08/06/17 09:10 94 111/66 08/06/17 08:38 98 50 08/06/17 06:00 92 08/06/17 06:00 99.7 92 20 116/74 (88) 98 115/67 (83) 08/06/17 05:00 99.5 92 20 110/79 (89) 98 115/67 (83) 08/06/17 04:20 98 60 08/06/17 04:00 99.5 90 20 106/75 (85) 98 108/63 (78) 08/06/17 04:00 60 08/06/17 04:00 90 08/06/17 03:25 92 115/69 08/06/17 03:00 99.7 90 20 116/81 (93) 98 114/70 (85) 08/06/17 02:00 99.7 92 20 115/80 (92) 98 117/71 (86) 08/06/17 02:00 92 08/06/17 01:16 97 60 08/06/17 01:00 99.7 92 20 113/79 (90) 97 115/70 (85) 08/06/17 00:00 60 08/06/17 00:00 92 08/06/17 00:00 99.7 92 20 113/82 (92) 97 116/71 (86) 08/05/17 23:00 99.7 94 20 116/73 (87) 96 114/70 (85) 08/05/17 22:16 96 60 08/05/17 22:12 93 113/69 08/05/17 22:00 97 08/05/17 22:00 99.5 97 20 110/81 (91) 96 112/68 (83) 08/05/17 21:00 99.3 93 20 105/77 (86) 96 106/67 (80) 08/05/17 20:00 92 08/05/17 20:00 99.1 92 20 106/77 (87) 96 109/66 (80) 08/05/17 20:00 60 08/05/17 19:55 96 60 08/05/17 19:00 99.1 92 20 102/70 (81) 94 103/63 (76) 08/05/17 18:40 93 69/49 08/05/17 18:35 91 65/45 08/05/17 18:30 90 71/48 08/05/17 18:00 99.1 92 20 97/66 (76) 94 95/57 (70) 08/05/17 18:00 92 08/05/17 17:00 99.3 92 20 98/72 (81) 95 99/59 (72) 08/05/17 17:00 99.3 92 98/72 (81) 95 99/59 (72) 08/05/17 16:16 95 50 08/05/17 16:00 99.5 92 20 103/67 (79) 95 109/67 (81) 08/05/17 16:00 50 08/05/17 16:00 92 08/05/17 15:50 92 98/60 08/05/17 15:50 93 97/59 08/05/17 15:00 99.7 92 20 99/65 (76) 95 97/58 (71) 08/05/17 14:25 92 102/60 08/05/17 14:00 99.9 92 20 101/62 (75) 95 100/59 (73) 08/05/17 14:00 92 08/05/17 13:46 93 104/61 08/05/17 13:00 99.7 92 20 102/71 (81) 95 102/60 (74) 08/05/17 12:00 99.5 92 20 103/70 (81) 96 104/61 (75) 08/05/17 12:00 50 08/05/17 12:00 92 Exam Comments coma state. intubated. on low dose versed. non-verbal/not following. mild proptosis, ou 2mm slightly irregular l>rt. questionably reactive, no corneal, no oculocephalics, no facial/tongue jerking, no limb movement Objective Micro and Labs Laboratory Tests Test 08/06/17 04:05 White Blood Count 31.4 Red Blood Count 4.13 Hemoglobin 14.0 Hematocrit 42.2 Mean Corpuscular Volume 102.1 Mean Corpuscular Hemoglobin 33.9 Mean Corpuscular Hemoglobin Concent 33.2 Red Cell Distribution Width 13.4 Platelet Count 172 Mean Platelet Volume 8.3 Neutrophils (%) (Auto) 93.8 Lymphocytes (%) (Auto) 3.1 Monocytes (%) (Auto) 3.0 Eosinophils (%) (Auto) 0.0 Basophils (%) (Auto) 0.1 Neutrophils # (Auto) 29.5 Lymphocytes # (Auto) 1.0 Monocytes # (Auto) 0.9 Eosinophils # (Auto) 0.0 Basophils # (Auto) 0.0 CBC Comment AUTO DIFF Differential Total Cells Counted 100 Neutrophils % (Manual) 34 Band Neutrophils % 63 Lymphocytes % 1 Monocytes % 1 Neutrophils # (Manual) 30.8 Myelocytes 1 Nucleated Red Blood Cells 7 Differential Comment FINAL DIFF MANUAL Toxic Granulation 1+ Toxic Vacuolation PRESENT Platelet Estimate NORMAL Platelet Morphology Comment NORMAL Blood Urea Nitrogen 60 Creatinine 3.54 Random Glucose 243 Total Protein 5.6 Albumin 3.1 Calcium Level 6.9 Alkaline Phosphatase 79 Aspartate Amino Transf (AST/SGOT) 3636 Alanine Aminotransferase (ALT/SGPT) 3201 Total Bilirubin 1.5 Sodium Level 139 Potassium Level 4.0 Chloride Level 106 Carbon Dioxide Level 21.8 Anion Gap 11 Estimat Glomerular Filtration Rate 17 Protein Corrected Calcium 7.7 Phenytoin (Dilantin) Level 9.3 Date/Time Source Procedure Growth Status 08/04/17 21:34 Blood Peripheral Aerobic Blood Culture - Preliminary Gram Positive Cocci Resulted 08/04/17 21:34 Blood Peripheral Anaerobic Blood Culture - Preliminary NO GROWTH IN 2 DAYS Resulted Delvis Lambert MD Aug 06, 2017 11:59
--- NOTE | 2017-08-06 17:14 | RADRPT ---
EXAM DATE/TIME: 08/06/2017 16:40 [facility] COMPARISON: CT BRAIN W/O CONTRAST, August 04, 2017, 17:06. INDICATIONS : Anoxic brain injury. MEDICAL HISTORY : Chronic obstructive pulmonary disease. SURGICAL HISTORY : None. ENCOUNTER: Initial ACUITY: 1 day PAIN SCORE: 0/10 LOCATION: cranial TECHNIQUE: Multiplanar, multisequence MRI of the brain was performed without contrast. FINDINGS: There is diffuse restricted diffusion involving the cerebral cortex, basal ganglia and mesial tempora l regions, as well as the cerebellar hemispheres with corresponding decreased signal on the ADC map. This is consistent with the history of anoxic brain injury. There is corresponding edema on flair marcia ges with increased flair signal seen to the corresponding areas of restricted diffusion. A more focal lacunar type infarct in the right frontal subcortical white matter identified. No hemorrhage or mass . CONCLUSION: Diffuse restricted diffusion consistent with anoxic brain injury involving the cortex, cerebellum, br ainstem and mesial temporal/hippocampal regions. Delon Nagel MD on August 06, 2017 at 17:10 Board Certified Radiologist. This report was verified electronically.
[2017-08-07] VITALS (21 sets, daily range): BP systolic 94–111; BP diastolic 57–70; PULSE 87–110; RESP 16–20; TEMP 99–99.5; O2SAT 89–97
[2017-08-07] MEDS: VASOPRESSIN INJ 40 UNITS in DEXTROSE 5% IN WATER 100ML INJ 98 ML IV SCH ×4 (01:40→19:38)
[2017-08-07] MEDS: RESP: ALBUTEROL 2.5 MG/IPRATROPIUM 0.5 MG NEB (SCH) INH ×4 (03:37→20:16)
[2017-08-07] MEDS: CHLORHEXIDINE GLUCONATE 2 % 1 PACK (2 CLOTHS) TOP SCH (04:00)
[2017-08-07 04:12] LABS: HEMATOCRIT 42.1 % (39.0-51.0); MEAN CELL VOLUME 100.8 FL (80.0-100.0); MEAN CORPUSCULAR HEMOGLOBIN 33.3 PG (27.0-34.0); PLATELET COUNT 160 TH/MM3 (150-450); RED BLOOD COUNT 4.18 MIL/MM3 (4.50-5.90); RED CELL DISTRIBUTION WIDTH 13.2 % (11.6-17.2); WHITE BLOOD COUNT 30.9 TH/MM3 (4.0-11.0)
[2017-08-07] MEDS: HEPARIN SODIUM - SQ 10,000 UNITS/ML VIAL SQ SCH ×3 (04:29→20:24)
[2017-08-07 04:55] LABS: BICARBONATE 21.2 MEQ/L (21.0-32.0); POTASSIUM 4.7 MEQ/L (3.5-5.1)
[2017-08-07 05:01] LABS: REVIEW FLAG FINAL
[2017-08-07] MEDS: RESP: ALBUTEROL 2.5 MG/IPRATROPIUM 0.5 MG NEB (PRN) INH ×2 (06:08→23:17)
[2017-08-07] MEDS: NOREPINEPHRINE-DEXTROSE DRIP 250 ML IV PRN ×3 (06:10→20:23)
[2017-08-07] MEDS: CHLORHEXIDINE 0.12% (ORAL KIT) 15 ML CUP MT SCH ×2 (08:00→20:00)
[2017-08-07] MEDS: ARTIFICIAL TEARS OPTH SOLN 15 ML BTL EACH EYE SCH ×3 (09:00→18:00)
[2017-08-07] MEDS: SODIUM CHLORIDE 0.9% FLUSH 10 ML FLUSH IV FLUSH SCH ×2 (09:00→20:24)
[2017-08-07] MEDS: levETIRAcetam 1000 MG INJ 100 ML IV SCH ×2 (09:15→20:24)
[2017-08-07] MEDS: ASPIRIN 81 MG CHEW TAB OG-TUBE SCH (09:18)
[2017-08-07] MEDS: FAMOTIDINE 20 MG/2 ML VIAL IV PUSH SCH ×2 (09:18→20:24)
[2017-08-07] MEDS: DOCUSATE SODIUM 50 MG/SENNA 8.6 MG TAB PO SCH ×2 (09:18→20:24)
[2017-08-07] MEDS: methylPREDNISolone SOD SUCC 125 MG/2 ML VIAL IV PUSH SCH ×2 (09:20→20:24)
--- NOTE | 2017-08-07 10:15 | HHI.CCPN ---
Subjective Remarks/Hospital Course 08/04: 71-year-old male with history of COPD, alcohol use disorder, presents here as a cardiac arrest with return of spontaneous circulation. The paramedics where called to a house where he was found in asystole. When police arrived, they started CPR. They started epinephrine which put him into ventricular fibrillation. They report one defibrillation which put him in normal sinus rhythm. When E [facility] arrived they found him in sinus rhythm and en route he went back into V. fib. He was defibrillated 1 further time and given one further round of epinephrine which brought him back to sinus rhythm with a pulse. Patient's blood pressure was noted to be in the low 100s systolic. He had a Combitube placed by the medics. This was exchanged with a 8.0 ET tube. Patient went back into PEA. ACLS protocol was initiated he was given 1 round of epinephrine which brought him back to pulse with a heart rate in the 70s and 80s. Patient was noted to have a low blood pressure and a dopamine drip was started at 10 mics. Per family report the patient drinks about 1 gallon of wine a day and smokes 2 pack cigarettes daily. 08/05: Remains encephalopathic/sedated, orally intubated on mechanical ventilation. He was noted to have myoclonus this morning. EEG ordered. On Levophed 14 mics per minute. 08/06: no meaningful improvements. remains severely encephalopathic. remains on vasopressors and in shock. kidney injury worse today. plan for family meeting tuesday, but for now goals remain aggressive. 08/07: no meaningful improvements in neurologic exam. renal function worsening. MRI yesterday with evidence of severe anoxia. vasopressors remain. still in shock. I spoke with the medical decision maker yesterday and conveyed the information regarding his poor neurologic exam and his MRI findings, and that his prognosis is poor for any meaningful neurologic recovery. for now, he asked that our goals remain aggressive and we await full family meeting tomorrow. Objective Vital Signs Date Time Temp Pulse Resp B/P (MAP) Pulse Ox O2 Delivery O2 Flow Rate FiO2 08/07/17 07:47 95 100 08/07/17 06:10 101/64 08/07/17 06:00 95 08/07/17 04:00 99.0 20 08/04/17 18:45 Ventilator Intake and Output 08/07/17 08/07/17 08/08/17 08:00 16:00 00:00 Intake Total 513 ml Output Total 20 ml Balance 493 ml Result Diagram: 08/07/1732908/07/17 033 Imaging Last [address] 08/04/171617 Signed Impressions: Service Date/Time: July 17:06 - CONCLUSION: Asymmetry of the sulci with more atrophy and sulcal prominence noted over the left frontal and parietal convexities and paired to the right however there is no low density edema or mass effect identified. A portion of this may be artifactual and due to the patient being slightly tilted in the scanning gantry. Subtle edema is less likely. Further evaluation with MRI imaging could be performed. Ian Maynard MD Chest X-Ray 08/04/171617 Signed Impressions: Service Date/Time: July 17:19 - CONCLUSION: 1. Status post intubation. 2. 1.6 x 1.4 cm mass projected over left lung. Further evaluation with chest CT is recommended. Ian Maynard MD Chest X-Ray 08/04/17 0000 Signed Impressions: Service Date/Time: July 20:33 - CONCLUSION: 1. Right subclavian line in good position. 2. Interstitial prominence and pulmonary nodules, the lungs are more fully described in the CT pulmonary angiogram. Interstitial prominence is likely secondary to small nodules that are seen on the CT examination. 1. Martinez Cerda MD CT Angiography 08/04/17 0000 Signed Impressions: Service Date/Time: July 18:44 - CONCLUSION: 1. No pulmonary embolus. 2. Chronic emphysematous change seen in the upper lungs. 3. Numerous patchy areas of focal density seen throughout both lungs. This pattern is most suggestive of post inflammatory change although other processes including neoplasm cannot absolutely be excluded. The patient does have evidence of prior granulomatous exposure. If the patient had signs of infectious/inflammatory change in the lungs, they could be treated and a follow-up CT examination be obtained in two to three months for re-evaluation. Alternatively, one could perform a PET scan to determine if any of these areas are metabolically active. The largest area is seen in the left upper lobe. Martinez Cerda MD Abdomen/Pelvis CT 08/04/17 0000 Signed Impressions: Service Date/Time: July 18:44 - CONCLUSION: 1. No acute abnormality is seen. 2. Mild hepatic steatosis. 3. Mildly prominent retroperitoneal lymph nodes, these are nonspecific. 4. Right renal cysts. Martinez Cerda MD Objective Remarks GENERAL: Elderly comatose gentleman intubated. SKIN: Warm and dry. HEAD: Normocephalic. EYES: No scleral icterus. No injection or drainage. NECK: trachea midline. No JVD CARDIOVASCULAR: normal rate, regular rhythm. sinus by tele. RESPIRATORY: PRVC. fio2 50%. peep 5. equal chest rise. GASTROINTESTINAL: Abdomen soft, non-tender, nondistended. MUSCULOSKELETAL: No cyanosis, or edema. NEURO EXAM: GCS 3. pupils 2mm, equal reactive. RASS -5. A/P Assessment and Plan Assessment: 71yM with severe anoxic encephalopathy s/p cardiac arrest. poor prognosis. associated multiorgan failure which is not improving. off pathway. goals remain aggressive until family meeting 08/08. very critically ill. Cardiac arrest status post CPR Hypotension Elevated troponin -Continue Levophed and vasopressin for pressor support. Elevated troponin noted. Cardiology consulted and discussed with Dr. Oneil was not planning any intervention in view of poor neurologic exam currently. ASA 81 mg daily. Anoxic encephalopathy Seizures - hold sedating meds. repeat EEG without evidence of seizures, but with evidence of severe anoxia. MRI 08/06 with evidence of severe anoxic injury. Neuro consulted. Acute kidney injury - worsening. - likely secondary to shock - no indication for emergent dialysis at this time, and with neurologic status, HD unlikely to be beneficial. Acute hypoxic and hypercarbic Respiratory failure - Continue mechanical ventilation - No weaning until neurologically improved - Vent bundle - DuoNeb scheduled and when necessary - off pathway COPD - DuoNeb scheduled and when necessary - IV steroid - Mechanical ventilation Alcohol use disorder - d/c ciwa protocol, unlikely to exhibit withdraw symptoms given severe anoxia. - Thiamine folate and multivitamins IV DVT GI prophylaxis - Teds SCDs - Subcutaneous heparin - Judson Phan MD Aug 07, 2017 10:15
--- NOTE | 2017-08-07 14:10 | HHI.PR ---
Review/Management Diagnosis/Plan: (1) Anoxic encephalopathy ICD Codes: G93.1 - Anoxic brain damage, not elsewhere classified Status: Acute Plan: impaired cortical and brainstem reflexes post anoxic involuntary movements- appear to be non-epileptic myoclonic activity recs MRI brain showing diffuse cortical, caudate, cerebellar anoxic injury eeg- burst suppression before versed gtt d/w ccm poor prognosis based on eeg, imaging, current neuro exam and MODS (2) PEA (Pulseless electrical activity) ICD Codes: I46.9 - Cardiac arrest, cause unspecified Status: Acute (3) Elevated troponin ICD Codes: R74.8 - Abnormal levels of other serum enzymes Status: Acute (4) Renal failure ICD Codes: N19 - Unspecified kidney failure Status: Acute (5) Liver failure, acute ICD Codes: K72.00 - Acute and subacute hepatic failure without coma Status: Acute (6) ETOHism ICD Codes: F10.20 - Alcohol dependence, uncomplicated Status: Chronic Subjective Subjective Comments No acute events reported Active Medications Current Medications Medications (Trade) Dose Ordered Sig/Radha Route Start Time Stop Time Status Last Admin (Duoneb Neb) 1 ampule Q6HR NEB INH 08/04/17 18:00 08/07/17 07:56 (Mariela-Colace) 1 tab BID PO 08/04/17 21:00 08/07/17 09:18 (Milk Of Magnesia Liq) 30 ml Q12H PRN PO 08/04/17 18:00 (Senokot) 17.2 mg Q12H PRN PO 08/04/17 18:00 (Lactulose Liq) 30 ml DAILY PRN PO 08/04/17 18:00 (NS Flush) 2 ml UNSCH PRN IV FLUSH 08/04/17 19:15 (NS Flush) 2 ml BID IV FLUSH 08/04/17 21:00 08/07/17 09:00 (Tylenol) 650 mg Q6H PRN PO 08/04/17 19:15 (Pepcid Inj) 10 mg Q12HR IV PUSH 08/04/17 21:00 08/07/17 09:18 (Tears Naturale Opth Soln) 1 drop TID EACH EYE 08/05/17 09:00 08/07/17 13:00 (Zofran Inj) 4 mg Q6H PRN IV PUSH 08/04/17 19:15 (Duoneb Neb) 1 ampule Q2HR NEB PRN INH 08/04/17 19:15 08/07/17 06:08 (Heparin Inj) 5,000 units Q8H SQ 08/04/17 20:00 08/07/17 13:14 Miscellaneous Information 1 [id number] XX 08/04/17 19:15 (Chlorhexidine 2% Cloth) 3 pack Taper DAILY@04 TOP 08/05/17 04:00 08/01/18 03:59 08/07/17 04:00 (Chlorhexidine 2% Cloth) 3 pack UNSCH PRN TOP 08/04/17 19:15 (Peridex 0.12% Liq) 15 ml BID@08,20 MT 08/04/17 20:00 08/07/17 08:00 Norepinephrine Bitartrate 250 ml @ 7.5 mls/hr TITRATE PRN IV 08/04/17 19:15 08/07/17 06:10 (Romazicon Inj) 0.2 mg Q1M PRN IV PUSH 08/04/17 19:15 Vasopressin 40 units/Dextrose 100 ml @ 6 mls/hr [id number] IV 08/04/17 23:15 08/07/17 01:40 (SoluMEDROL INJ) 60 mg Q12HR IV PUSH 08/05/17 09:00 08/07/17 09:20 Levetriacetam 100 ml @ 400 mls/hr Q12HR IV 08/05/17 21:00 08/07/17 09:15 (Aspirin Chew) 81 mg DAILY OG-TUBE 08/06/17 09:00 08/07/17 09:18 Allergies Allergies Uncoded Allergies unknown ( Allergy, Unknown, unknown, 08/04/17) Review of Systems All other ROS: Unable to obtain Exam I&O / VS Vital Signs Date Time Temp Pulse Resp B/P (MAP) Pulse Ox O2 Delivery O2 Flow Rate FiO2 08/07/17 13:07 95 100 08/07/17 10:22 95 100 08/07/17 08:00 99.5 94 20 107/70 (82) 96 104/62 (76) 08/07/17 08:00 97 08/07/17 08:00 100 08/07/17 07:47 95 100 08/07/17 06:31 93 100 08/07/17 06:10 101/64 08/07/17 06:00 95 08/07/17 04:24 97/63 08/07/17 04:24 97/63 08/07/17 04:23 96 50 08/07/17 04:00 60 08/07/17 04:00 90 08/07/17 04:00 99.0 90 20 97/63 (74) 91 94/57 (69) 08/07/17 03:25 104/62 08/07/17 02:00 91 08/07/17 01:40 104/62 08/07/17 01:40 101/67 08/07/17 00:39 97 50 08/07/17 00:00 93 08/07/17 00:00 60 08/07/17 00:00 99.2 93 16 106/65 (79) 95 104/62 (76) 08/06/17 23:08 93 104/63 08/06/17 22:00 94 08/06/17 20:00 95 08/06/17 20:00 99.1 95 106/67 (80) 97 101/61 (74) 08/06/17 20:00 60 08/06/17 19:53 96 50 08/06/17 19:00 95 115/64 (81) 95 99/64 (76) 08/06/17 18:39 94 50 08/06/17 18:00 98 111/66 (81) 94 93/50 (64) 08/06/17 17:36 94 50 08/06/17 17:18 98 119/65 (83) 95 08/06/17 17:17 99 100 08/06/17 16:28 97 122/74 (90) 97 08/06/17 16:00 60 08/06/17 16:00 99.1 95 122/67 (85) 94 119/72 (88) 08/06/17 15:00 124 122/75 (91) 94 121/70 (87) Exam Comments coma state. intubated. non-verbal/not following. eyes partially open, no blink , mild proptosis, ou 2mm slightly irregular l>rt. questionably reactive, no corneal, no oculocephalics, no facial/tongue jerking, no limb movement Objective Micro and Labs Laboratory Tests Test 08/07/17 03:30 08/07/17 08:30 White Blood Count 30.9 Red Blood Count 4.18 Hemoglobin 13.9 Hematocrit 42.1 Mean Corpuscular Volume 100.8 Mean Corpuscular Hemoglobin 33.3 Mean Corpuscular Hemoglobin Concent 33.0 Red Cell Distribution Width 13.2 Platelet Count 160 Mean Platelet Volume 8.6 Blood Urea Nitrogen 81 Creatinine 5.11 Random Glucose 223 Calcium Level 7.5 Sodium Level 136 Potassium Level 4.7 Chloride Level 102 Carbon Dioxide Level 21.2 Anion Gap 13 Estimat Glomerular Filtration Rate 11 Date/Time Source Procedure Growth Status 08/04/17 21:34 Blood Peripheral Aerobic Blood Culture - Preliminary Staph Sp Coagulase Negative Resulted 08/04/17 21:34 Blood Peripheral Anaerobic Blood Culture - Preliminary NO GROWTH IN 3 DAYS Resulted Delvis Lambert MD Aug 07, 2017 14:10
--- NOTE | 2017-08-07 23:57 | RADRPT ---
EXAM DATE/TIME: 08/07/2017 23:27 [facility] COMPARISON: CHEST SINGLE AP, August 05, 2017, 3:59. INDICATIONS : Respiratory disease. MEDICAL HISTORY : Chronic obstructive pulmonary disease. SURGICAL HISTORY : None. ENCOUNTER: Subsequent ACUITY: 4 - 6 days PAIN SCORE: Non-responsive. LOCATION: Bilateral chest FINDINGS: There is a large left pneumothorax. There is some degree of collapse of the left lung around the hilu m. Minimal subcutaneous emphysema along the lateral left chest wall. Slight rightward cardiomediastin al shift. Endotracheal tube is situated with tip 8 cm above the remedios. Nasogastric tube descends to the stomach. Right subclavian central line is stable in good position. Minimal right base parenchymal opacity. CONCLUSION: Large left pneumothorax Dr. Covarrubias was notified upon interpretation Martinez Jennings MD on August 07, 2017 at 23:51 Board Certified Radiologist. This report was verified electronically.
[2017-08-08] VITALS (23 sets, daily range): BP systolic 89–115; BP diastolic 44–62; PULSE 86–92; RESP 20–24; TEMP 98.7–100.5; O2SAT 88–95
--- NOTE | 2017-08-08 00:41 | PD.PROCEDR ---
Procedure Note Procedure Procedure: Left pigtail chest tube placement. Indication: Acute left pneumothorax Details of procedure: Procedure was done emergently as patient has acute left pneumothorax with desaturations 88% on 100% FiO2 via vent. He is on vasopressors which have been weaning overnight. The patient was laid supine. The lateral chest wall was cleaned with ChloraPrep x5. Regional sterile drapes were applied. 1% lidocaine was used for local anesthesia and injected into the subcutaneous and deep muscle tissues. Needle was advanced to left chest wall at anterior axillary line at ~4-5th rib space and air was aspirated. A small ~4 mm skin incision was made and the tract was dilated. The 10 English pigtail catheter was advanced and connected to pleur-evac -20 cm suction where there was return of 3+ air leak that decreased to 1+ air leak with <5 mL of serous fluid return. A 2-0 silk was used to secure the chest tube. Dressing also placed to secure. Patient tolerated procedure well without apparent complication. Sats are improved to 93 % on 100% FiO2 Estimated blood loss: Complications: None apparent Stat chest x-ray is pending. Yoon Covarrubias MD Aug 08, 2017 00:41
--- NOTE | 2017-08-08 01:14 | RADRPT ---
EXAM DATE/TIME: 08/08/2017 01:00 [facility] COMPARISON: CHEST SINGLE AP, August 07, 2017, 23:27. INDICATIONS : Left side chest tube placement MEDICAL HISTORY : Chronic obstructive pulmonary disease. SURGICAL HISTORY : L. Side chest tube ENCOUNTER: Subsequent ACUITY: 1 week PAIN SCORE: Non-responsive. LOCATION: Bilateral chest FINDINGS: There has been interval insertion of a left chest pigtail thoracostomy tube. There is minimal residua l left apical pneumothorax which is over 1 cm separation of apical pleural layers. Hazy bilateral low er lung zone pleural-parenchymal opacities appear to be slightly worse. Endotracheal tube, nasogastri c tube and right subclavian central line are stable. Cardiac contours are stable. CONCLUSION: Left thoracostomy tube placed with near-complete resolution of pneumothorax. Continued worsening of a eration. Martinez Jennings MD on August 08, 2017 at 1:10 Board Certified Radiologist. This report was verified electronically.
[2017-08-08] MEDS: RESP: ALBUTEROL 2.5 MG/IPRATROPIUM 0.5 MG NEB (SCH) INH ×3 (02:46→15:00)
[2017-08-08] MEDS: CHLORHEXIDINE GLUCONATE 2 % 1 PACK (2 CLOTHS) TOP SCH (03:32)
[2017-08-08] MEDS: HEPARIN SODIUM - SQ 10,000 UNITS/ML VIAL SQ SCH ×3 (03:32→20:46)
[2017-08-08 05:31] LABS: HEMATOCRIT 44.4 % (39.0-51.0); MEAN CELL VOLUME 102.8 FL (80.0-100.0); MEAN CORPUSCULAR HEMOGLOBIN 33.9 PG (27.0-34.0); PLATELET COUNT 160 TH/MM3 (150-450); RED BLOOD COUNT 4.32 MIL/MM3 (4.50-5.90); RED CELL DISTRIBUTION WIDTH 13.4 % (11.6-17.2); WHITE BLOOD COUNT 36.2 TH/MM3 (4.0-11.0)
[2017-08-08 05:37] LABS: REVIEW FLAG FINAL
[2017-08-08 05:58] LABS: POTASSIUM 5.8 MEQ/L (3.5-5.1)
[2017-08-08] MEDS: RESP: ALBUTEROL 2.5 MG/IPRATROPIUM 0.5 MG NEB (SCH) NEB ×3 (07:22→20:21)
[2017-08-08] MEDS: CHLORHEXIDINE 0.12% (ORAL KIT) 15 ML CUP MT SCH ×2 (08:00→20:46)
[2017-08-08] MEDS ORDERED: CALCIUM GLUCONATE INJ 2 GM in DEXTROSE 5% IN WATER 100ML INJ 100 ML IV ONE ×2 (08:45)
[2017-08-08] MEDS ORDERED: INSULIN HUMAN REGULAR 1,000 UNITS/10 ML VIAL IV PUSH ONE (08:45)
[2017-08-08] MEDS ORDERED: DEXTROSE 50% IN WATER 50 ML VIAL(D50) IV ONE (08:45)
[2017-08-08] MEDS: ARTIFICIAL TEARS OPTH SOLN 15 ML BTL EACH EYE SCH ×3 (09:00→18:05)
[2017-08-08] MEDS: SODIUM CHLORIDE 0.9% FLUSH 10 ML FLUSH IV FLUSH SCH ×2 (09:00→20:48)
[2017-08-08] MEDS: DOCUSATE SODIUM 50 MG/SENNA 8.6 MG TAB PO SCH ×2 (09:00→20:48)
--- NOTE | 2017-08-08 09:02 | HHI.CCPN ---
Subjective Remarks/Hospital Course 08/04: 71-year-old male with history of COPD, alcohol use disorder, presents here as a cardiac arrest with return of spontaneous circulation. The paramedics where called to a house where he was found in asystole. When police arrived, they started CPR. They started epinephrine which put him into ventricular fibrillation. They report one defibrillation which put him in normal sinus rhythm. When [facility] arrived they found him in sinus rhythm and en route he went back into V. fib. He was defibrillated 1 further time and given one further round of epinephrine which brought him back to sinus rhythm with a pulse. Patient's blood pressure was noted to be in the low 100s systolic. He had a Combitube placed by the medics. This was exchanged with a 8.0 ET tube. Patient went back into PEA. ACLS protocol was initiated he was given 1 round of epinephrine which brought him back to pulse with a heart rate in the 70s and 80s. Patient was noted to have a low blood pressure and a dopamine drip was started at 10 mics. Per family report the patient drinks about 1 gallon of wine a day and smokes 2 pack cigarettes daily. 08/05: Remains encephalopathic/sedated, orally intubated on mechanical ventilation. He was noted to have myoclonus this morning. EEG ordered. On Levophed 14 mics per minute. 08/06: no meaningful improvements. remains severely encephalopathic. remains on vasopressors and in shock. kidney injury worse today. plan for family meeting tuesday, but for now goals remain aggressive. 08/07: no meaningful improvements in neurologic exam. renal function worsening. MRI yesterday with evidence of severe anoxia. vasopressors remain. still in shock. I spoke with the medical decision maker yesterday and conveyed the information regarding his poor neurologic exam and his MRI findings, and that his prognosis is poor for any meaningful neurologic recovery. for now, he asked that our goals remain aggressive and we await full family meeting tomorrow. 08/08: Remains encephalopathic, orally intubated on mechanical ventilation. Had a left pneumothorax last night for which chest tube was placed by Dr. Covarrubias. Rising BUN/creatinine noted. Patient remains nonoliguric. Objective Vital Signs Date Time Temp Pulse Resp B/P (MAP) Pulse Ox O2 Delivery O2 Flow Rate FiO2 08/08/17 07:23 93 100 08/08/17 06:00 86 08/08/17 05:19 97/46 08/08/17 04:00 98.7 20 08/04/17 18:45 Ventilator Intake and Output 08/08/17 08/08/17 08/09/17 08:00 16:00 00:00 Intake Total 264 ml Output Total 325 ml Balance -61 ml Result Diagram: 08/08/17 0405 08/08/17 0405 Imaging Last [address] 08/04/171617 Signed Impressions: Service Date/Time: July 17:06 - CONCLUSION: Asymmetry of the sulci with more atrophy and sulcal prominence noted over the left frontal and parietal convexities and paired to the right however there is no low density edema or mass effect identified. A portion of this may be artifactual and due to the patient being slightly tilted in the scanning gantry. Subtle edema is less likely. Further evaluation with MRI imaging could be performed. Ian Maynard MD Chest X-Ray 08/04/171617 Signed Impressions: Service Date/Time: July 17:19 - CONCLUSION: 1. Status post intubation. 2. 1.6 x 1.4 cm mass projected over left lung. Further evaluation with chest CT is recommended. Ian Maynard MD Chest X-Ray 08/04/17 0000 Signed Impressions: Service Date/Time: July 20:33 - CONCLUSION: 1. Right subclavian line in good position. 2. Interstitial prominence and pulmonary nodules, the lungs are more fully described in the CT pulmonary angiogram. Interstitial prominence is likely secondary to small nodules that are seen on the CT examination. 1. Martinez Cerda MD CT Angiography 08/04/17 0000 Signed Impressions: Service Date/Time: July 18:44 - CONCLUSION: 1. No pulmonary embolus. 2. Chronic emphysematous change seen in the upper lungs. 3. Numerous patchy areas of focal density seen throughout both lungs. This pattern is most suggestive of post inflammatory change although other processes including neoplasm cannot absolutely be excluded. The patient does have evidence of prior granulomatous exposure. If the patient had signs of infectious/inflammatory change in the lungs, they could be treated and a follow-up CT examination be obtained in two to three months for re-evaluation. Alternatively, one could perform a PET scan to determine if any of these areas are metabolically active. The largest area is seen in the left upper lobe. Martinez Cerda MD Abdomen/Pelvis CT 08/04/17 0000 Signed Impressions: Service Date/Time: July 18:44 - CONCLUSION: 1. No acute abnormality is seen. 2. Mild hepatic steatosis. 3. Mildly prominent retroperitoneal lymph nodes, these are nonspecific. 4. Right renal cysts. Martinez Cerda MD Objective Remarks GENERAL: Elderly comatose gentleman intubated. SKIN: Warm and dry. HEAD: Normocephalic. EYES: No scleral icterus. No injection or drainage. NECK: trachea midline. No JVD CARDIOVASCULAR: normal rate, regular rhythm. sinus by tele. RESPIRATORY: PRVC. fio2 50%. peep 5. equal chest rise. GASTROINTESTINAL: Abdomen soft, non-tender, nondistended. MUSCULOSKELETAL: No cyanosis, or edema. NEURO EXAM: GCS 3. pupils 2mm, equal reactive. RASS -5. A/P Assessment and Plan Assessment: 71yM with severe anoxic encephalopathy s/p cardiac arrest. poor prognosis. associated multiorgan failure which is not improving. off pathway. goals remain aggressive until family meeting 08/08. very critically ill. Cardiac arrest status post CPR Hypotension Elevated troponin -Continue Levophed and vasopressin for pressor support. Elevated troponin noted. Cardiology consulted and discussed with Dr. Oneil - not planning any intervention in view of poor neurologic exam currently. ASA 81 mg daily. Anoxic encephalopathy Seizures - hold sedating meds. repeat EEG without evidence of seizures, but with evidence of severe anoxia. MRI 08/06 with evidence of severe anoxic injury. Neuro consulted. Acute kidney injury - worsening. - likely secondary to shock - no indication for emergent dialysis at this time, and with neurologic status, HD unlikely to be beneficial. - Ordered calcium, glucose insulin IV, Kayexalate for hyperkalemia. We'll discuss with family regarding goals of therapy and that if they wish to continue aggressive care and then will consult nephrology. Acute hypoxic and hypercarbic Respiratory failure - Continue mechanical ventilation - No weaning until neurologically improved - Vent bundle - DuoNeb scheduled and when necessary - off pathway COPD - DuoNeb scheduled and when necessary - IV steroid - Mechanical ventilation Alcohol use disorder - d/c ciwa protocol, unlikely to exhibit withdraw symptoms given severe anoxia. - Thiamine folate and multivitamins IV DVT GI prophylaxis - Teds SCDs - Subcutaneous heparin - Pepcid Condition critical: Time spent on critical care excluding procedures 35 minutes Ashu Ortega MD Aug 08, 2017 09:02
[2017-08-08] MEDS: FAMOTIDINE 20 MG/2 ML VIAL IV PUSH SCH ×2 (09:20→20:47)
[2017-08-08] MEDS: methylPREDNISolone SOD SUCC 125 MG/2 ML VIAL IV PUSH SCH ×2 (09:20→20:47)
[2017-08-08] MEDS: SODIUM POLYSTYRENE SULFONATE SUSP 15 GM/60 ML CUP NG SCH ×4 (09:20→16:00)
[2017-08-08] MEDS: ASPIRIN 81 MG CHEW TAB OG-TUBE SCH (09:20)
[2017-08-08] MEDS: NOREPINEPHRINE-DEXTROSE DRIP 250 ML IV PRN ×2 (09:22→13:28)
[2017-08-08] MEDS: levETIRAcetam 1000 MG INJ 100 ML IV SCH ×2 (09:28→20:47)
[2017-08-08] MEDS: VASOPRESSIN INJ 40 UNITS in DEXTROSE 5% IN WATER 100ML INJ 98 ML IV SCH ×2 (13:30)
[2017-08-08 16:34] LABS: BICARBONATE 20.8 MEQ/L (21.0-32.0); POTASSIUM 5.4 MEQ/L (3.5-5.1)
--- NOTE | 2017-08-08 18:05 | HHI.HCPN ---
Reason for visit a. To assist with evaluation and management of symptoms including: seizure, dyspnea. pain. b. To assist medical decision maker(s) with: better understanding of current medical conditions; weighing benefits/burdens of medical treatment options; making medical treatment decisions. . Subjective/Interval History Patient seen and examined in ICU. No family at bedside. Patient remains unresponsive on mech vent, FiO2 100%. Afebrile. Remains hypotensive. No evidence of neurologic improvement on exam. MRI brain revealed severe anoxic injury. neurology, Dr. Lambert indicates prognosis poor for meaningful recovery. Patient developed left pneumothorax overnight and had chest tube placed. WBC 36.2. Creatinine 6.89. Potassium 5.8. Worsening renal function noted. 08/04/17 blood culture staph hominis-hominis. Chest xray left thoracostomy tube placed with near-complete resolution of pneumothorax, continued worsening of aeration. . Family/friend interactions Family meeting with Kendra Alba" Thad ([facility]) and his Anthony Biggs ( nephew) and his Chilango Royal (nephew) and his Ly Catherine ( sister) and her Luis. Items discussed: * Palliative care role, purpose, approach * Additional medical, psychosocial, and spiritual history * Patients general health, functional status, and cognitive changes in the months leading up to the current hospitalization * Patient/family understanding of the current medical problems * Patient/family understanding of prognosis * Patients goals of care as best understood from advance directives and/or conversations and/or values * Current medical treatment options and benefits/burdens of those options * Likely scenarios comparing ongoing aggressive care with a transition to comfort measures only * Questions answered to the best of my ability * Palliative care contact information provided After lengthy conversation to provide medical update, family all feels patient would not want continued aggressive care. Jesse ([facility]) wants to "keep him alive as long as he can." Though after family voices frustration regarding this statement, he becomes tearful. Kalyan asks if we can get a second neurologic opinion. They verbalize a second opinion would provide peace of mind if another MD agrees with poor prognosis for meaningful recovery. Jesse indicates he may consider transition to comfort measures if another MD agrees with poor prognosis. Reviewed worsening renal function and possible need for dialysis, though Dr. Ortega feels patient is not likely a candidate for HD. Family requests to meet with palliative care again on 08/09/17 at 4pm to reassess clinical status and further clarify goals after 2nd neuro opinion. Discussed with Dr. Ortega and he agrees with neuro 2nd opinion. . Advance Directives Living Will: Copy in medical record Health Care Surrogate: Copy in medical record Advance Directive Specifics Date completed: 01/17/1996 . Health Care Surrogate(s): Designated healthcare surrogate: Kendra Oneil, friend. Alternate healthcare surrogate, Yun Danielson. . Documented care wishes: Living Will on chart. . Significant change in goals: NO CODE. Continue aggressive care for now short of NO CODE for now. Will reevaluate renal status on 08/09/17. Requests 2nd neurologic opinion to provide opinion on prognosis for meaningful recovery. . Objective Vital Signs Date Time Temp Pulse Resp B/P (MAP) Pulse Ox O2 Delivery O2 Flow Rate FiO2 08/08/17 16:00 91 08/08/17 16:00 90 08/08/17 15:00 94 90 08/08/17 14:00 89 109/62 (78) 95 100/54 (69) 08/08/17 14:00 89 08/08/17 13:30 88 97/50 08/08/17 13:28 89 96/50 08/08/17 13:00 89 105/60 (75) 93 106/57 (73) 08/08/17 13:00 89 08/08/17 12:00 91 08/08/17 12:00 100 08/08/17 12:00 91 105/59 (74) 93 105/56 (72) 08/08/17 11:04 94 100 08/08/17 11:00 92 103/55 (71) 94 102/53 (69) 08/08/17 11:00 92 08/08/17 10:00 92 08/08/17 10:00 92 100/59 (73) 94 101/51 (68) 08/08/17 09:22 90 08/08/17 09:00 89 101/59 (73) 93 108/55 (72) 08/08/17 09:00 90 107/53 08/08/17 08:00 100 08/08/17 08:00 99.1 08/08/17 08:00 87 08/08/17 08:00 87 95/56 (69) 93 107/54 (71) 08/08/17 07:23 93 100 08/08/17 06:00 86 08/08/17 05:19 86 97/46 08/08/17 04:07 92 100 08/08/17 04:00 88 08/08/17 04:00 100 08/08/17 04:00 98.7 88 20 89/54 (66) 92 97/53 (68) 08/08/17 02:00 87 08/08/17 01:22 97/51 08/08/17 00:19 90 100 08/08/17 00:00 100 08/08/17 00:00 99.0 88 20 93/52 (66) 89 107/57 (74) 08/08/17 00:00 88 08/07/17 23:30 100 08/07/17 22:21 89 100 08/07/17 22:00 89 08/07/17 21:51 110/57 08/07/17 20:23 108/58 08/07/17 20:16 91 100 08/07/17 20:00 100 08/07/17 20:00 99.3 87 20 101/66 (78) 92 106/59 (75) 08/07/17 20:00 89 08/07/17 19:38 96/56 08/07/17 18:19 87 101/66 08/07/17 18:00 88 Intake & Output 08/08/17 08/08/17 07:00 19:00 Intake Total 364 ml 200 ml Output Total 325 ml Balance 39 ml 200 ml Intake IV Total 364 ml 200 ml Output Urine Total 15 ml Chest Tube Drainage Total 310 ml Physical Exam CONSTITUTIONAL/GENERAL: This is critically ill, elderly patient, on mechanical ventilation. TUBES/LINES/DRAINS: ETT, OG, right subclavian central line, right arterial femoral line, PIV right AC, bilateral soft wrist restraints,SCDs. SKIN: No jaundice, rashes, or lesions. Ecchymoses on upper extremities. No wounds seen anteriorly. Skin temperature appropriate. Not diaphoretic. EYES: eyes closed. CARDIOVASCULAR: irregular, rate 80-90's. RESPIRATORY/CHEST: unlabored respirations on mechanical vent. Clear to auscultation. Breath sounds equal bilaterally. GASTROINTESTINAL: Abdomen soft, mildly distended. Bowel sounds present. GENITOURINARY: Without palpable bladder distension. Zhu catheter in place. MUSCULOSKELETAL: bilateral lower extremity peripheral vascular changes noted dry flaky skin dark. No mottling or clubbing. NEUROLOGICAL: Unresponsive. PSYCHIATRIC: Unresponsive. . Diagnostic Tests Laboratory Laboratory Tests Test 08/06/17 04:05 08/07/17 03:30 08/07/17 08:30 08/08/17 04:05 White Blood Count 31.4 TH/MM3 (4.0-11.0) 30.9 TH/MM3 (4.0-11.0) 36.2 TH/MM3 (4.0-11.0) Red Blood Count 4.13 MIL/MM3 (4.50-5.90) 4.18 MIL/MM3 (4.50-5.90) 4.32 MIL/MM3 (4.50-5.90) Hemoglobin 14.0 GM/DL (13.0-17.0) 13.9 GM/DL (13.0-17.0) 14.7 GM/DL (13.0-17.0) Hematocrit 42.2 % (39.0-51.0) 42.1 % (39.0-51.0) 44.4 % (39.0-51.0) Mean Corpuscular Volume 102.1 FL (80.0-100.0) 100.8 FL (80.0-100.0) 102.8 FL (80.0-100.0) Mean Corpuscular Hemoglobin 33.9 PG (27.0-34.0) 33.3 PG (27.0-34.0) 33.9 PG (27.0-34.0) Mean Corpuscular Hemoglobin Concent 33.2 % (32.0-36.0) 33.0 % (32.0-36.0) 33.0 % (32.0-36.0) Red Cell Distribution Width 13.4 % (11.6-17.2) 13.2 % (11.6-17.2) 13.4 % (11.6-17.2) Platelet Count 172 TH/MM3 (150-450) 160 TH/MM3 (150-450) 160 TH/MM3 (150-450) Mean Platelet Volume 8.3 FL (7.0-11.0) 8.6 FL (7.0-11.0) 9.3 FL (7.0-11.0) Neutrophils (%) (Auto) 93.8 % (16.0-70.0) Lymphocytes (%) (Auto) 3.1 % (9.0-44.0) Monocytes (%) (Auto) 3.0 % (0.0-8.0) Eosinophils (%) (Auto) 0.0 % (0.0-4.0) Basophils (%) (Auto) 0.1 % (0.0-2.0) Neutrophils # (Auto) 29.5 TH/MM3 (1.8-7.7) Lymphocytes # (Auto) 1.0 TH/MM3 (1.0-4.8) Monocytes # (Auto) 0.9 TH/MM3 (0-0.9) Eosinophils # (Auto) 0.0 TH/MM3 (0-0.4) Basophils # (Auto) 0.0 TH/MM3 (0-0.2) CBC Comment AUTO DIFF Differential Total Cells Counted 100 Neutrophils % (Manual) 34 % (16-70) Band Neutrophils % 63 % (0-6) Lymphocytes % 1 % (9-44) Monocytes % 1 % (0-8) Neutrophils # (Manual) 30.8 TH/MM3 (1.8-7.7) Myelocytes 1 % (0-0) Nucleated Red Blood Cells 7 /100 WBC (0-0) Differential Comment FINAL DIFF MANUAL Toxic Granulation 1+ (NORMAL) Toxic Vacuolation PRESENT (NONE SEEN) Platelet Estimate NORMAL (NORMAL) Platelet Morphology Comment NORMAL (NORMAL) Blood Urea Nitrogen 60 MG/DL (7-18) 81 MG/DL (7-18) 107 MG/DL (7-18) Creatinine 3.54 MG/DL (0.60-1.30) 5.11 MG/DL (0.60-1.30) 6.89 MG/DL (0.60-1.30) Random Glucose 243 MG/DL (74-106) 223 MG/DL (74-106) 171 MG/DL (74-106) Total Protein 5.6 GM/DL (6.4-8.2) Albumin 3.1 GM/DL (3.4-5.0) Calcium Level 6.9 MG/DL (8.5-10.1) 7.5 MG/DL (8.5-10.1) 8.0 MG/DL (8.5-10.1) Alkaline Phosphatase 79 U/L (45-117) Aspartate Amino Transf (AST/SGOT) 3636 U/L (15-37) Alanine Aminotransferase (ALT/SGPT) 3201 U/L (12-78) Total Bilirubin 1.5 MG/DL (0.2-1.0) Sodium Level 139 MEQ/L (136-145) 136 MEQ/L (136-145) 134 MEQ/L (136-145) Potassium Level 4.0 MEQ/L (3.5-5.1) 4.7 MEQ/L (3.5-5.1) 5.8 MEQ/L (3.5-5.1) Chloride Level 106 MEQ/L (98-107) 102 MEQ/L (98-107) 99 MEQ/L (98-107) Carbon Dioxide Level 21.8 MEQ/L (21.0-32.0) 21.2 MEQ/L (21.0-32.0) 21.0 MEQ/L (21.0-32.0) Anion Gap 11 MEQ/L (5-15) 13 MEQ/L (5-15) 14 MEQ/L (5-15) Estimat Glomerular Filtration Rate 17 ML/MIN (>89) 11 ML/MIN (>89) 8 ML/MIN (>89) Protein Corrected Calcium 7.7 MG/DL (8.5-10.1) Phenytoin (Dilantin) Level 9.3 MCG/ML (10.0-20.0) Procalcitonin 5.02 ng/mL (0.00-0.50) Test 08/08/17 13:50 Blood Urea Nitrogen 121 MG/DL (7-18) Creatinine 7.16 MG/DL (0.60-1.30) Random Glucose 185 MG/DL (74-106) Calcium Level 8.0 MG/DL (8.5-10.1) Sodium Level 133 MEQ/L (136-145) Potassium Level 5.4 MEQ/L (3.5-5.1) Chloride Level 98 MEQ/L (98-107) Carbon Dioxide Level 20.8 MEQ/L (21.0-32.0) Anion Gap 14 MEQ/L (5-15) Estimat Glomerular Filtration Rate 8 ML/MIN (>89) Result Diagram: 08/08/17 0405 08/08/17 1350 Microbiology Microbiology Date/Time Source Procedure Growth Status 08/04/17 21:34 Blood Peripheral Aerobic Blood Culture - Final Staphylococcus Hominis-Hominis Resulted 08/04/17 21:34 Blood Peripheral Anaerobic Blood Culture - Preliminary NO GROWTH IN 4 DAYS Resulted Imaging Last Impressions Chest X-Ray 08/08/17 0000 Signed Impressions: Service Date/Time: Tuesday, August 08, 2017 01:00 - CONCLUSION: Left thoracostomy tube placed with near-complete resolution of pneumothorax. Continued worsening of aeration. Martinez Jennings MD Brain MRI 08/06/17 0000 Signed Impressions: Service Date/Time: Sunday, August 06, 2017 16:40 - CONCLUSION: Diffuse restricted diffusion consistent with anoxic brain injury involving the cortex, cerebellum, brainstem and mesial temporal/hippocampal regions. Delon Nagel MD Head CT 08/04/17 1618 Signed Impressions: Service Date/Time: July 17:06 - CONCLUSION: Asymmetry of the sulci with more atrophy and sulcal prominence noted over the left frontal and parietal convexities and paired to the right however there is no low density edema or mass effect identified. A portion of this may be artifactual and due to the patient being slightly tilted in the scanning gantry. Subtle edema is less likely. Further evaluation with MRI imaging could be performed. Ian Maynard MD CT Angiography 08/04/17 0000 Signed Impressions: Service Date/Time: July 18:44 - CONCLUSION: 1. No pulmonary embolus. 2. Chronic emphysematous change seen in the upper lungs. 3. Numerous patchy areas of focal density seen throughout both lungs. This pattern is most suggestive of post inflammatory change although other processes including neoplasm cannot absolutely be excluded. The patient does have evidence of prior granulomatous exposure. If the patient had signs of infectious/inflammatory change in the lungs, they could be treated and a follow-up CT examination be obtained in two to three months for re-evaluation. Alternatively, one could perform a PET scan to determine if any of these areas are metabolically active. The largest area is seen in the left upper lobe. Martinez Cerda MD Abdomen/Pelvis CT 08/04/17 0000 Signed Impressions: Service Date/Time: July 18:44 - CONCLUSION: 1. No acute abnormality is seen. 2. Mild hepatic steatosis. 3. Mildly prominent retroperitoneal lymph nodes, these are nonspecific. 4. Right renal cysts. Martinez Cerda MD Procedures * 08/08/17 - left chest tube * 08/04/17 - PEA arrest, intubated, right subclavian central line placed. . Assessment and Plan Disease Oriented Problem List: (1) Anoxic encephalopathy (2) ETOHism (3) PEA (Pulseless electrical activity) (4) Renal failure (5) Liver failure, acute (6) Elevated troponin Symptom Scale: (1) Pain 0-10 Scale: Unable to quantify (2) Seizure 0-10 Scale: Unable to quantify (3) Dyspnea 0-10 Scale: Unable to quantify Pertinent Non-Medical Issues Psychosocial: Single. No children. Supported by roommates, nephew and sister. Spiritual: family declines chief financial officer support, rastafarian is not an important part of the patient's life. Legal: Patient currently incapacitated to make his own health care decisions. Living Will/durable power of assistant county attorney for healthcare names, Kendra Oneil as Primary HCS and Yun Danielson as alternate HCS. Decisions will likely be supported by his nephew, Anthony Grossman and sister, Catherine Ames. Ethical issues impacting care: no known concerns at this time. . Important Contacts * Kendra Oneil, friend/HCS: [phone] * Anthony Grossman, nephew: [phone] Works at [employer] [place] * Genny Grossman (nephews ): [phone] . Prognosis Mr. Grossman is a 71-year-old male with underlying COPD, chronic alcohol and tobacco use admitted post cardiac arrest with respiratory failure, renal failure , liver failure and likely anoxic injury with seizure activity not a candidate for cardiac intervention. Overall prognosis appears poor for meaningful recovery. . Code Status: No Code Plan * Decision Maker: Patient currently incapacitated to make his own health care decisions. Living Will/durable power of assistant county attorney for healthcare names, Kendra Oneil as Primary HCS and Yun Danielson as alternate HCS. Decisions will likely be supported by his nephew, Anthony Grossman and sister, Catherine Ames. * NO CODE - HCS and family elect NO CODE as this is reportedly in keeping with patient verbal and written advanced directives. * Palliative care meeting: Time spent 90 minutes. Family meeting with Kendra Alba" Thad (HCS) and his Anthony Biggs (nephew) and his Chilango Royal (nephew) and his Catherine Modi (sister) and her Luis. After lengthy conversation to provide medical update, family all feels patient would not want continued aggressive care. Jesse ([facility]) wants to "keep him alive as long as he can." Though after family voices frustration regarding this statement, he becomes tearful. Kalyan asks if we can get a second neurologic opinion. They verbalize a second opinion would provide peace of mind if another MD agrees with poor prognosis for meaningful recovery. Jesse indicates he may consider transition to comfort measures if another MD agrees with poor prognosis. Reviewed worsening renal function and possible need for dialysis, though Dr. Ortega feels patient is not likely a candidate for HD. We agreed to reevaluate renal function again 08/09 - family would like to wait on consideration of HD until 2nd neuro opinion. * Family requests to meet with palliative care again on 08/09/17 at 4pm to reassess clinical status and further clarify goals after 2nd neuro opinion. Discussed with Dr. Ortega and he agrees with neuro 2nd opinion. Discussed with nurse. * SYMPTOMS: Pain: on Fentanyl drip. No obvious signs of pain. Dyspnea: on mech vent. Seizure: on Keppra, Cerebyx added. No visible seizure noted. No new medication recommendations at this time. * Palliative care number provided. * Palliative care will continue to follow throughout hospital course to assist with symptom management and clarification of goals as needed. . Attestation To help prompt me to consider important information that might be impacting today's encounter and assessment, information from prior notes written by myself or my colleagues may have been "brought forward" into today's note. My signature on this note, however, is an attestation that I personally performed the exam, history, and/or decision-making noted today, and, unless otherwise indicated, the interactions with patient, family, and staff as well as the review of records all occurred today. I also attest that the listed assessment and stated plan reflect my best clinical judgment today based on the combination of historical information, prior notes, and today's exam/ interactions. When time spent is documented, it refers only to time spent today by the signer, or if indicated, combined time spent today by collaborating physician/nurse practitioner. Sandie Kenney Aug 08, 2017 18:05
[2017-08-09] VITALS (21 sets, daily range): BP systolic 95–114; BP diastolic 47–59; PULSE 89–100; RESP 24; TEMP 99.5–103; O2SAT 87–92
[2017-08-09] MEDS: NOREPINEPHRINE-DEXTROSE DRIP 250 ML IV PRN ×4 (01:15→14:33)
[2017-08-09] MEDS: CHLORHEXIDINE GLUCONATE 2 % 1 PACK (2 CLOTHS) TOP SCH (01:15)
[2017-08-09] MEDS: VASOPRESSIN INJ 40 UNITS in DEXTROSE 5% IN WATER 100ML INJ 98 ML IV SCH ×2 (03:10)
[2017-08-09] MEDS: HEPARIN SODIUM - SQ 10,000 UNITS/ML VIAL SQ SCH ×2 (03:39→12:17)
[2017-08-09 06:09] LABS: HEMATOCRIT 42.9 % (39.0-51.0); MEAN CELL VOLUME 101.1 FL (80.0-100.0); MEAN CORPUSCULAR HEMOGLOBIN 32.9 PG (27.0-34.0); MEAN CORPUSCULAR HGB CONC 32.5 % (32.0-36.0); PLATELET COUNT 159 TH/MM3 (150-450); RED BLOOD COUNT 4.25 MIL/MM3 (4.50-5.90); RED CELL DISTRIBUTION WIDTH 13.4 % (11.6-17.2); REVIEW FLAG FINAL; WHITE BLOOD COUNT 29.8 TH/MM3 (4.0-11.0)
[2017-08-09 06:31] LABS: BICARBONATE 19.2 MEQ/L (21.0-32.0); POTASSIUM 6.2 MEQ/L (3.5-5.1)
[2017-08-09] MEDS: RESP: ALBUTEROL 2.5 MG/IPRATROPIUM 0.5 MG NEB (SCH) NEB ×3 (07:22→15:57)
[2017-08-09] MEDS ORDERED: DEXTROSE 50% IN WATER 50 ML VIAL(D50) IV PUSH ONE (08:00)
[2017-08-09] MEDS ORDERED: INSULIN HUMAN REGULAR 1,000 UNITS/10 ML VIAL IV PUSH ONE (08:00)
[2017-08-09] MEDS ORDERED: CALCIUM GLUCONATE INJ 1 GM in SODIUM CHLORIDE 0.9% INJ 100 ML IV ONE (08:00)
[2017-08-09] MEDS: methylPREDNISolone SOD SUCC 125 MG/2 ML VIAL IV PUSH SCH (08:14)
[2017-08-09] MEDS: levETIRAcetam 1000 MG INJ 100 ML IV SCH (08:14)
[2017-08-09] MEDS: SODIUM POLYSTYRENE SULFONATE SUSP 15 GM/60 ML CUP OG-TUBE SCH ×4 (08:14→14:33)
[2017-08-09] MEDS: SODIUM CHLORIDE 0.9% FLUSH 10 ML FLUSH IV FLUSH SCH (08:14)
[2017-08-09] MEDS: ARTIFICIAL TEARS OPTH SOLN 15 ML BTL EACH EYE SCH ×2 (08:14→12:17)
[2017-08-09] MEDS: FAMOTIDINE 20 MG/2 ML VIAL IV PUSH SCH (08:14)
[2017-08-09] MEDS: ASPIRIN 81 MG CHEW TAB OG-TUBE SCH (08:15)
[2017-08-09] MEDS ORDERED: CALCIUM CHLORIDE INJ 1 GM in SODIUM CHLORIDE 0.9% INJ 100 ML IV ONE (09:15)
[2017-08-09] MEDS: CHLORHEXIDINE 0.12% (ORAL KIT) 15 ML CUP MT SCH (09:39)
[2017-08-09] MEDS: DOCUSATE SODIUM 50 MG/SENNA 8.6 MG TAB PO SCH (09:40)
[2017-08-09] MEDS: ACETAMINOPHEN 325 MG TAB PO PRN ×2 (09:48→15:58)
--- NOTE | 2017-08-09 10:27 | PD.CONS ---
[facility] Service Nephrology Consult Requested By Reason for Consult Acute Renal Failure Primary Care Physician Unknown History of Present Illness This is a 71 y/o male admitted 08/04 after being found down. CPR was started, and he did have ROSC. On arrival his creatinine was 1.98, has increased daily and is 8.02 today. His K is 6.2, and he was treated for hyperkalemia with IV calcium, bicarbonate, dextrose, and insulin. He is hypotensive on both Levophed and vasopressin. Neurology has followed, and imaging confirms anoxic brain injury. Palliative care has also been following, and he is a DNR and family is considering withdrawal of life support. However they would like a second neuro opinion first. In the interim we were consulted for management of his renal dysfunction. He is oliguric, unresponsive, on 100% Fi02 and 10 of PEEP with oxygen saturations in the 80s. He has a spontaneous pneumothorax and required left sided chest tube placement overnight. Most of the information is obtained from the medical record. (Aminah Elizabeth) Review of Systems ROS Limitations: Intubated, Unresponsive (Aminah Elizabeth) Past Family Social History Allergies: Uncoded Allergies: unknown (Allergy, Unknown, unknown, 08/04/17) Past Medical History Daily Smoker Daily ETOH COPD per records Other information unknown Past Surgical History Unknown Reported Medications Unknown Active Ordered Medications Current Medications Medications (Trade) Dose Ordered Sig/Radha Route Start Time Stop Time Status Last Admin (Mariela-Colace) 1 tab BID PO 08/04/17 21:00 08/09/17 09:40 (Milk Of Magnesia Liq) 30 ml Q12H PRN PO 08/04/17 18:00 (Senokot) 17.2 mg Q12H PRN PO 08/04/17 18:00 (Lactulose Liq) 30 ml DAILY PRN PO 08/04/17 18:00 (NS Flush) 2 ml UNSCH PRN IV FLUSH 08/04/17 19:15 08/09/17 08:15 (NS Flush) 2 ml BID IV FLUSH 08/04/17 21:00 08/09/17 08:14 (Tylenol) 650 mg Q6H PRN PO 08/04/17 19:15 08/09/17 09:48 (Pepcid Inj) 10 mg Q12HR IV PUSH 08/04/17:00 08/09/17 08:14 (Tears Naturale Opth Soln) 1 drop TID EACH EYE 08/05/17 09:00 08/09/17 08:14 (Zofran Inj) 4 mg Q6H PRN IV PUSH 08/04/17 19:15 (Duoneb Neb) 1 ampule Q2HR NEB PRN INH 08/04/17 19:15 08/07/17 23:17 (Heparin Inj) 5,000 units Q8H SQ 08/04/17 20:00 08/09/17 03:39 Miscellaneous Information 1 [id number] XX 08/04/17 19:15 (Chlorhexidine 2% Cloth) 3 pack Taper DAILY@04 TOP 08/05/17 04:00 08/01/18 03:59 08/09/17 01:15 (Chlorhexidine 2% Cloth) 3 pack UNSCH PRN TOP 08/04/17 19:15 (Peridex 0.12% Liq) 15 ml BID@08,20 MT 08/04/17 20:00 08/09/17 09:39 Norepinephrine Bitartrate 250 ml @ 7.5 mls/hr TITRATE PRN IV 08/04/17 19:15 08/09/17 06:20 (Romazicon Inj) 0.2 mg Q1M PRN IV PUSH 08/04/17 19:15 Vasopressin 40 units/Dextrose 100 ml @ 6 mls/hr [id number] IV 08/04/17 23:15 08/09/17 03:10 (SoluMEDROL INJ) 60 mg Q12HR IV PUSH 08/05/17 09:00 08/09/17 08:14 Levetriacetam 100 ml @ 400 mls/hr Q12HR IV 08/05/17 21:00 08/09/17 08:14 (Aspirin Chew) 81 mg DAILY OG-TUBE 08/06/17 09:00 08/09/17 08:15 (Duoneb Neb) 1 ampule Q4HR WHILE AWAKE NEB NEB 08/08/17 08:00 08/09/17 07:22 (Kayexalate Liq) 30 gm Q2H OG-TUBE 08/09/17 08:30 08/09/17 14:31 08/09/17 09:48 Calcium Chloride 1 gm/Sodium Chloride 110 ml @ 110 mls/hr NOW ONCE IV 08/09/17 09:15 08/09/17 10:14 08/09/17 09:39 Family History Unable to obtain Social History Unable to obtain (Aminah Elizabeth) Physical Exam Vital Signs Vital Signs Date Time Temp Pulse Resp B/P (MAP) Pulse Ox O2 Delivery O2 Flow Rate FiO2 08/09/17 10:00 97 100/52 (68) 87 101/49 (66) 08/09/17 09:00 96 100/55 (70) 87 95/47 (63) 08/09/17 09:00 100 08/09/17 08:00 100 08/09/17 08:00 101.5 92 104/57 (73) 88 103/51 (68) 08/09/17 07:22 88 100 08/09/17 07:00 89 101/54 (70) 88 98/50 (66) 08/09/17 06:20 87 96/48 08/09/17 06:00 95 08/09/17 04:00 99.5 92 24 108/57 (74) 89 107/53 (71) 08/09/17 04:00 100 08/09/17 04:00 92 08/09/17 03:47 89 100 08/09/17 03:10 91 111/59 08/09/17 02:00 90 08/09/17 01:15 91 114/56 08/09/17 00:00 100 08/09/17 00:00 91 08/09/17 00:00 99.8 90 24 114/59 (77) 90 113/58 (76) 08/08/17 23:39 90 100 08/08/17 22:00 90 08/08/17 20:22 91 100 08/08/17 20:00 100.5 91 24 115/60 (78) 91 94/44 (61) 08/08/17 20:00 100 08/08/17 20:00 91 08/08/17 18:00 92 08/08/17 18:00 92 115/60 (78) 92 103/52 (69) 08/08/17 17:32 93 95/47 08/08/17 17:00 91 108/58 (75) 88 96/48 (64) 08/08/17 17:00 91 08/08/17 16:00 100.1 08/08/17 16:00 91 08/08/17 16:00 91 08/08/17 16:00 90 08/08/17 16:00 91 108/58 (75) 92 95/50 (65) 08/08/17 15:00 94 90 08/08/17 14:00 89 109/62 (78) 95 100/54 (69) 08/08/17 14:00 89 08/08/17 13:30 88 97/50 08/08/17 13:28 89 96/50 08/08/17 13:00 89 105/60 (75) 93 106/57 (73) 08/08/17 13:00 89 08/08/17 12:00 91 08/08/17 12:00 100 08/08/17 12:00 91 105/59 (74) 93 105/56 (72) 08/08/17 11:04 94 100 08/08/17 11:00 92 103/55 (71) 94 102/53 (69) 08/08/17 11:00 92 Physical Exam Elderly male, appears malnourished He is unresponsive on the ventilator, does not withdrawal to pain Lungs: bibasilar rales, chest tube draining on left S1/S2, tachycardic; hypotensive 100s systolic Abd: round, normal bowel sounds Ext: mottled, cool, weak pulses; has 2+ upper extremity edema TLC on right IJ Laboratory Laboratory Tests Test 08/08/17 13:50 08/09/17 05:10 Blood Urea Nitrogen 121 136 Creatinine 7.16 8.02 Random Glucose 185 191 Calcium Level 8.0 7.8 Sodium Level 133 130 Potassium Level 5.4 6.2 Chloride Level 98 95 Carbon Dioxide Level 20.8 19.2 Anion Gap 14 16 Estimat Glomerular Filtration Rate 8 7 White Blood Count 29.8 Red Blood Count 4.25 Hemoglobin 14.0 Hematocrit 42.9 Mean Corpuscular Volume 101.1 Mean Corpuscular Hemoglobin 32.9 Mean Corpuscular Hemoglobin Concent 32.5 Red Cell Distribution Width 13.4 Platelet Count 159 Mean Platelet Volume 9.2 Date/Time Source Procedure Growth Status 08/04/17 21:34 Blood Peripheral Aerobic Blood Culture - Final Staphylococcus Hominis-Hominis Resulted 08/04/17 21:34 Blood Peripheral Anaerobic Blood Culture - Preliminary NO GROWTH IN 4 DAYS Resulted (Aminah Elizabeth) Result Diagram: 08/09/17 0510 08/09/17 0510 Imaging Last Impressions Chest X-Ray 08/08/17 0000 Signed Impressions: Service Date/Time: Tuesday, August 08, 2017 01:00 - CONCLUSION: Left thoracostomy tube placed with near-complete resolution of pneumothorax. Continued worsening of aeration. Martinez Jennings MD Brain MRI 08/06/17 0000 Signed Impressions: Service Date/Time: Sunday, August 06, 2017 16:40 - CONCLUSION: Diffuse restricted diffusion consistent with anoxic brain injury involving the cortex, cerebellum, brainstem and mesial temporal/hippocampal regions. Delon Nagel MD Head CT 08/04/17 1618 Signed Impressions: Service Date/Time: July 17:06 - CONCLUSION: Asymmetry of the sulci with more atrophy and sulcal prominence noted over the left frontal and parietal convexities and paired to the right however there is no low density edema or mass effect identified. A portion of this may be artifactual and due to the patient being slightly tilted in the scanning gantry. Subtle edema is less likely. Further evaluation with MRI imaging could be performed. Ian Maynard MD CT Angiography 08/04/17 Signed Impressions: Service Date/Time: July 18:44 - CONCLUSION: 1. No pulmonary embolus. 2. Chronic emphysematous change seen in the upper lungs. 3. Numerous patchy areas of focal density seen throughout both lungs. This pattern is most suggestive of post inflammatory change although other processes including neoplasm cannot absolutely be excluded. The patient does have evidence of prior granulomatous exposure. If the patient had signs of infectious/inflammatory change in the lungs, they could be treated and a follow-up CT examination be obtained in two to three months for re-evaluation. Alternatively, one could perform a PET scan to determine if any of these areas are metabolically active. The largest area is seen in the left upper lobe. Martinez Cerda MD Abdomen/Pelvis CT 08/04/17 0000 Signed Impressions: Service Date/Time: July 18:44 - CONCLUSION: 1. No acute abnormality is seen. 2. Mild hepatic steatosis. 3. Mildly prominent retroperitoneal lymph nodes, these are nonspecific. 4. Right renal cysts. Martinez Cerda MD (Aminah Elizabeth) Assessment and Plan Problem List: (1) Renal failure ICD Codes: N19 - Unspecified kidney failure Status: Acute Plan: No baseline labs for comparison, may have had underlying CKD as his creatinine was abnormal on arrival RAYO likely ATN from cardiac arrest and hypoperfusion He has life threatening hyperkalemia, s/p medical management this morning with insulin, dextrose, calcium, bicarb; awaiting repeat lab draw At this time he is oliguric Due to anoxic injury and hemodynamic instability despite pressors, he is not a candidate for dialysis Needs diuresis but unable to tolerate currently Attempt to reduce IVF rate; continue pressors as needed to maintain MAP Avoid nephrotoxic agents Repeat labs in AM , obtain UA for analysis Very poor prognosis, transfer to hospice is appropriate (2) Anoxic encephalopathy ICD Codes: G93.1 - Anoxic brain damage, not elsewhere classified Status: Acute Plan: s/p cardiac arrest Neurology is following Imaging confirms diagnosis, family requesting second opinion Hospice is appropriate (Aminah Elizabeth) Assessment and Plan patient was seen and examined. Very poor prognosis. Family is considering withdrawal of life support. Unstable for dialysis. He is massively fluid overloaded with hyperkalemia Dismal prognosis. Will wait to hear from family. (Vin Connolly MD) Aminah Elizabeth Aug 09, 2017 10:27 Vin Connolly MD Aug 09, 2017 17:02
--- NOTE | 2017-08-09 11:01 | RADRPT ---
EXAM DATE/TIME: 08/09/2017 10:13 [facility] COMPARISON: CHEST SINGLE AP, August 08, 2017, 1:00. INDICATIONS : Respiratory failure. Left pneumothorax. MEDICAL HISTORY : Chronic obstructive pulmonary disease. SURGICAL HISTORY : Chest tube, left. ENCOUNTER: Subsequent ACUITY: 1 week PAIN SCORE: Non-responsive. LOCATION: Bilateral chest FINDINGS: A loculated appearing pneumothorax is identified in the left base laterally. A small apical component has resolved. Persistent airspace disease is seen in both lung bases. Left-sided chest tube remains in stable position. CONCLUSION: 1. Lateral left basilar small pneumothorax. 2. Stable position of left chest tube. 3. Bibasilar airspace disease; unchanged. Cuate Hope MD on August 09, 2017 at 10:57 Board Certified Radiologist. This report was verified electronically.
--- NOTE | 2017-08-09 13:51 | HHI.CCPN ---
Subjective Remarks/Hospital Course 08/04: 71-year-old male with history of COPD, alcohol use disorder, presents here as a cardiac arrest with return of spontaneous circulation. The paramedics where called to a house where he was found in asystole. When police arrived, they started CPR. They started epinephrine which put him into ventricular fibrillation. They report one defibrillation which put him in normal sinus rhythm. When [facility] arrived they found him in sinus rhythm and en route he went back into V. fib. He was defibrillated 1 further time and given one further round of epinephrine which brought him back to sinus rhythm with a pulse. Patient's blood pressure was noted to be in the low 100s systolic. He had a Combitube placed by the medics. This was exchanged with a 8.0 ET tube. Patient went back into PEA. ACLS protocol was initiated he was given 1 round of epinephrine which brought him back to pulse with a heart rate in the 70s and 80s. Patient was noted to have a low blood pressure and a dopamine drip was started at 10 mics. Per family report the patient drinks about 1 gallon of wine a day and smokes 2 pack cigarettes daily. 08/05: Remains encephalopathic/sedated, orally intubated on mechanical ventilation. He was noted to have myoclonus this morning. EEG ordered. On Levophed 14 mics per minute. 08/06: no meaningful improvements. remains severely encephalopathic. remains on vasopressors and in shock. kidney injury worse today. plan for family meeting tuesday, but for now goals remain aggressive. 08/07: no meaningful improvements in neurologic exam. renal function worsening. MRI yesterday with evidence of severe anoxia. vasopressors remain. still in shock. I spoke with the medical decision maker yesterday and conveyed the information regarding his poor neurologic exam and his MRI findings, and that his prognosis is poor for any meaningful neurologic recovery. for now, he asked that our goals remain aggressive and we await full family meeting tomorrow. 08/08: Remains encephalopathic, orally intubated on mechanical ventilation. Had a left pneumothorax last night for which chest tube was placed by Dr. Covarrubias. Rising BUN/creatinine noted. Patient remains nonoliguric. 08/09: Remains comatose off sedation, orally intubated on mechanical ventilation. O2 sats in the upper 80s despite 100% FiO2 on mechanical ventilation. Remains hypotensive on Levophed. Remains oliguric with worsening renal function and hyperkalemia. Objective Vital Signs Date Time Temp Pulse Resp B/P (MAP) Pulse Ox O2 Delivery O2 Flow Rate FiO2 08/09/17 13:17 91 100 08/09/17 13:00 96 110/57 (74) 102/47 (65) 08/09/17 12:00 102.9 08/09/17 04:00 24 Intake and Output 08/09/17 08/09/17 08/10/17 08:00 16:00 00:00 Intake Total 0 ml 456 ml Output Total 650 ml Balance -650 ml 456 ml Result Diagram: 08/09/17 0510 08/09/17 0510 Imaging Last [address] 08/04/171617 Signed Impressions: Service Date/Time: July 17:06 - CONCLUSION: Asymmetry of the sulci with more atrophy and sulcal prominence noted over the left frontal and parietal convexities and paired to the right however there is no low density edema or mass effect identified. A portion of this may be artifactual and due to the patient being slightly tilted in the scanning gantry. Subtle edema is less likely. Further evaluation with MRI imaging could be performed. Ian Maynard MD Chest X-Ray 08/04/171617 Signed Impressions: Service Date/Time: July 17:19 - CONCLUSION: 1. Status post intubation. 2. 1.6 x 1.4 cm mass projected over left lung. Further evaluation with chest CT is recommended. Ian Maynard MD Chest X-Ray 08/04/17 Signed Impressions: Service Date/Time: July 20:33 - CONCLUSION: 1. Right subclavian line in good position. 2. Interstitial prominence and pulmonary nodules, the lungs are more fully described in the CT pulmonary angiogram. Interstitial prominence is likely secondary to small nodules that are seen on the CT examination. 1. Martinez Cerda MD CT Angiography 08/04/17 Signed Impressions: Service Date/Time: July 18:44 - CONCLUSION: 1. No pulmonary embolus. 2. Chronic emphysematous change seen in the upper lungs. 3. Numerous patchy areas of focal density seen throughout both lungs. This pattern is most suggestive of post inflammatory change although other processes including neoplasm cannot absolutely be excluded. The patient does have evidence of prior granulomatous exposure. If the patient had signs of infectious/inflammatory change in the lungs, they could be treated and a follow-up CT examination be obtained in two to three months for re-evaluation. Alternatively, one could perform a PET scan to determine if any of these areas are metabolically active. The largest area is seen in the left upper lobe. Martinez Cerda MD Abdomen/Pelvis CT 08/04/17 0000 Signed Impressions: Service Date/Time: July 18:44 - CONCLUSION: 1. No acute abnormality is seen. 2. Mild hepatic steatosis. 3. Mildly prominent retroperitoneal lymph nodes, these are nonspecific. 4. Right renal cysts. Martinez Cerda MD Objective Remarks GENERAL: Elderly comatose gentleman intubated. SKIN: Warm and dry. HEAD: Normocephalic. EYES: No scleral icterus. No injection or drainage. NECK: trachea midline. No JVD CARDIOVASCULAR: normal rate, regular rhythm. sinus by tele. RESPIRATORY: Orally intubated on mechanical ventilation, PRVC. fio2 100%. peep 10. equal chest rise. GASTROINTESTINAL: Abdomen soft, non-tender, nondistended. MUSCULOSKELETAL: No cyanosis, or edema. NEURO EXAM: GCS 3. pupils 2mm, equal reactive. RASS -5. A/P Assessment and Plan Assessment: 71yM with severe anoxic encephalopathy s/p cardiac arrest. poor prognosis. associated multiorgan failure which is not improving. off pathway. goals remain aggressive until family meeting 08/08. very critically ill. Cardiac arrest status post CPR Hypotension Elevated troponin -Continue Levophed and vasopressin for pressor support. Elevated troponin noted. Cardiology consulted and discussed with Dr. Oneil - not planning any intervention in view of poor neurologic exam currently. ASA 81 mg daily. Anoxic encephalopathy Seizures - hold sedating meds. repeat EEG without evidence of seizures, but with evidence of severe anoxia. MRI 08/06 with evidence of severe anoxic injury. Neuro consult noted. Following family meeting on 08/08, second neuro opinion requested by family which has been ordered. Acute kidney injury - worsening. - likely secondary to shock -Patient hypotensive and unlikely to tolerate hemodialysis. In view of severe anoxic brain injury, doubt that dialysis would help - Ordered calcium, glucose insulin IV, Kayexalate for hyperkalemia again on . Acute hypoxic and hypercarbic Respiratory failure - Continue mechanical ventilation -Rest I status worsening, now 100% FiO2 PEEP +10 - Vent bundle - DuoNeb scheduled and when necessary - off pathway COPD - DuoNeb scheduled and when necessary - IV steroid - Mechanical ventilation Alcohol use disorder -Off ciwa protocol, unlikely to exhibit withdraw symptoms given severe anoxia. - Thiamine folate and multivitamins IV DVT GI prophylaxis - Teds SCDs - Subcutaneous heparin - Pepcid Long conversation with POA by phone. Explained worsening clinical status including worsening rest I status and renal function and in setting of severe anoxic brain injury unlikely to benefit from aggressive care at this time. Patient is a DNR status. Family meeting planned later today. I did explain option for de-escalation of therapy and comfort measures if the family desired. Condition critical: Time spent on critical care excluding procedures 35 minutes Ashu Ortega MD Aug 09, 2017 13:51
--- NOTE | 2017-08-09 15:45 | HHI.HCPN ---
Reason for visit a. To assist with evaluation and management of symptoms including: dyspnea. pain. b. To assist medical decision maker(s) with: better understanding of current medical conditions; weighing benefits/burdens of medical treatment options; making medical treatment decisions. . Subjective/Interval History Patient seen and examined in ICU. No family at bedside. Patient remains unresponsive on mech vent, FiO2 100%. Febrile, temp 102.[address] Remains hypotensive on pressors. No evidence of neurologic improvement on exam. WBC 29.8. Creatinine worsening 8.02, potassium 6.2. 08/04/17 blood culture staph hominis-hominis. Chest xray lateral left basilar small pneumothorax, stable left chest tube, bibasilar airspace disease, unchanged. . Family/friend interactions Family meeting 4pm with Kendra "Jesse" Thad (HCS) and his Anthony Biggs (nephew) and his Chilango Royal (nephew) and his Catherine Modi ( sister) and her . Also present Michelle Krishna LCSW. Medical update provided. Reviewed nephrology consult and that patient is not a candidate for dialysis. HCS and all family are in agreement patient would not want to continue aggressive care. They are all certain patient would want to transition to comfort measures based on patient previously written advanced directives. Anticipatory guidance provided. Questions answered. . Advance Directives Living Will: Copy in medical record Health Care Surrogate: Copy in medical record Advance Directive Specifics Date completed: 01/17/1996 . Health Care Surrogate(s): Designated healthcare surrogate: hallie Marinelli. Alternate healthcare surrogate, Yun Danielson. . Documented care wishes: Living Will on chart. . Significant change in goals: NO CODE. Plan to proceed with withdrawal of life support with comfort measures only. . Objective Vital Signs Date Time Temp Pulse Resp B/P (MAP) Pulse Ox O2 Delivery O2 Flow Rate FiO2 08/09/17 14:33 93 103/53 08/09/17 14:00 94 08/09/17 13:17 91 100 08/09/17 13:00 96 110/57 (74) 90 102/47 (65) 08/09/17 12:00 100 08/09/17 12:00 102.9 100 112/55 (74) 88 103/51 (68) 08/09/17 12:00 100 08/09/17 11:21 98 104/51 08/09/17 11:06 88 100 08/09/17 11:00 99 104/58 (73) 88 101/49 (66) 08/09/17 10:00 97 100/52 (68) 87 101/49 (66) 08/09/17 10:00 97 08/09/17 09:00 96 100/55 (70) 87 95/47 (63) 08/09/17 09:00 100 08/09/17 08:55 88 100 08/09/17 08:00 100 08/09/17 08:00 92 08/09/17 08:00 101.5 92 104/57 (73) 88 103/51 (68) 08/09/17 07:22 88 100 08/09/17 07:00 89 101/54 (70) 88 98/50 (66) 08/09/17 06:20 87 96/48 08/09/17 06:00 95 08/09/17 04:00 99.5 92 24 108/57 (74) 89 107/53 (71) 08/09/17 04:00 100 08/09/17 04:00 92 08/09/17 03:47 89 100 08/09/17 03:10 91 111/59 08/09/17 02:00 90 08/09/17 01:15 91 114/56 08/09/17 00:00 100 08/09/17 00:00 91 08/09/17 00:00 99.8 90 24 114/59 (77) 90 113/58 (76) 08/08/17 23:39 90 100 08/08/17 22:00 90 08/08/17 20:22 91 100 08/08/17 20:00 100.5 91 24 115/60 (78) 91 94/44 (61) 08/08/17 20:00 100 08/08/17 20:00 91 08/08/17 18:00 92 08/08/17 18:00 92 115/60 (78) 92 103/52 (69) 08/08/17 17:32 93 95/47 08/08/17 17:00 91 108/58 (75) 88 96/48 (64) 08/08/17 17:00 91 08/08/17 16:00 100.1 08/08/17 16:00 91 08/08/17 16:00 91 08/08/17 16:00 90 08/08/17 16:00 91 108/58 (75) 92 95/50 (65) Intake & Output 08/09/17 08/09/17 07:00 19:00 Intake Total 100 ml 699 ml Output Total 650 ml Balance -550 ml 699 ml Intake Oral 0 ml IV Total 100 ml 699 ml Output Urine Total 50 ml Gastric Drainage Total 300 ml Chest Tube Drainage Total 300 ml # Bowel Movements 1 Physical Exam CONSTITUTIONAL/GENERAL: This is critically ill, elderly patient, on mechanical ventilation. TUBES/LINES/DRAINS: ETT, OG, right subclavian central line, right arterial femoral line, PIV right AC, bilateral soft wrist restraints,SCDs. SKIN: No jaundice, rashes, or lesions. Ecchymoses on upper extremities. No wounds seen anteriorly. Skin temperature appropriate. Not diaphoretic. EYES: eyes closed. CARDIOVASCULAR: irregular, rate 90-100. RESPIRATORY/CHEST: unlabored respirations on mechanical vent. Clear to auscultation. Breath sounds equal bilaterally. GASTROINTESTINAL: Abdomen soft, mildly distended. Bowel sounds present. GENITOURINARY: Without palpable bladder distension. Zhu catheter in place, scant UOP. MUSCULOSKELETAL: bilateral lower extremity peripheral vascular changes noted dry flaky skin dark. No mottling or clubbing. NEUROLOGICAL: Unresponsive. PSYCHIATRIC: Unresponsive. . Diagnostic Tests Laboratory Laboratory Tests Test 08/07/17 03:30 08/07/17 08:30 08/08/17 04:05 08/08/17 13:50 White Blood Count 30.9 TH/MM3 (4.0-11.0) 36.2 TH/MM3 (4.0-11.0) Red Blood Count 4.18 MIL/MM3 (4.50-5.90) 4.32 MIL/MM3 (4.50-5.90) Hemoglobin 13.9 GM/DL (13.0-17.0) 14.7 GM/DL (13.0-17.0) Hematocrit 42.1 % (39.0-51.0) 44.4 % (39.0-51.0) Mean Corpuscular Volume 100.8 FL (80.0-100.0) 102.8 FL (80.0-100.0) Mean Corpuscular Hemoglobin 33.3 PG (27.0-34.0) 33.9 PG (27.0-34.0) Mean Corpuscular Hemoglobin Concent 33.0 % (32.0-36.0) 33.0 % (32.0-36.0) Red Cell Distribution Width 13.2 % (11.6-17.2) 13.4 % (11.6-17.2) Platelet Count 160 TH/MM3 (150-450) 160 TH/MM3 (150-450) Mean Platelet Volume 8.6 FL (7.0-11.0) 9.3 FL (7.0-11.0) Blood Urea Nitrogen 81 MG/DL (7-18) 107 MG/DL (7-18) 121 MG/DL (7-18) Creatinine 5.11 MG/DL (0.60-1.30) 6.89 MG/DL (0.60-1.30) 7.16 MG/DL (0.60-1.30) Random Glucose 223 MG/DL (74-106) 171 MG/DL (74-106) 185 MG/DL (74-106) Calcium Level 7.5 MG/DL (8.5-10.1) 8.0 MG/DL (8.5-10.1) 8.0 MG/DL (8.5-10.1) Sodium Level 136 MEQ/L (136-145) 134 MEQ/L (136-145) 133 MEQ/L (136-145) Potassium Level 4.7 MEQ/L (3.5-5.1) 5.8 MEQ/L (3.5-5.1) 5.4 MEQ/L (3.5-5.1) Chloride Level 102 MEQ/L (98-107) 99 MEQ/L (98-107) 98 MEQ/L (98-107) Carbon Dioxide Level 21.2 MEQ/L (21.0-32.0) 21.0 MEQ/L (21.0-32.0) 20.8 MEQ/L (21.0-32.0) Anion Gap 13 MEQ/L (5-15) 14 MEQ/L (5-15) 14 MEQ/L (5-15) Estimat Glomerular Filtration Rate 11 ML/MIN (>89) 8 ML/MIN (>89) 8 ML/MIN (>89) Procalcitonin 5.02 ng/mL (0.00-0.50) Test 08/09/17 05:10 White Blood Count 29.8 TH/MM3 (4.0-11.0) Red Blood Count 4.25 MIL/MM3 (4.50-5.90) Hemoglobin 14.0 GM/DL (13.0-17.0) Hematocrit 42.9 % (39.0-51.0) Mean Corpuscular Volume 101.1 FL (80.0-100.0) Mean Corpuscular Hemoglobin 32.9 PG (27.0-34.0) Mean Corpuscular Hemoglobin Concent 32.5 % (32.0-36.0) Red Cell Distribution Width 13.4 % (11.6-17.2) Platelet Count 159 TH/MM3 (150-450) Mean Platelet Volume 9.2 FL (7.0-11.0) Blood Urea Nitrogen 136 MG/DL (7-18) Creatinine 8.02 MG/DL (0.60-1.30) Random Glucose 191 MG/DL (74-106) Calcium Level 7.8 MG/DL (8.5-10.1) Sodium Level 130 MEQ/L (136-145) Potassium Level 6.2 MEQ/L (3.5-5.1) Chloride Level 95 MEQ/L (98-107) Carbon Dioxide Level 19.2 MEQ/L (21.0-32.0) Anion Gap 16 MEQ/L (5-15) Estimat Glomerular Filtration Rate 7 ML/MIN (>89) Result Diagram: 08/09/17 0510 08/09/17 0510 Microbiology Microbiology Date/Time Source Procedure Growth Status 08/04/17 21:34 Blood Peripheral Aerobic Blood Culture - Final Staphylococcus Hominis-Hominis Complete 08/04/17 21:34 Blood Peripheral Anaerobic Blood Culture - Final NO GROWTH IN 5 DAYS Complete Imaging Last Impressions Chest X-Ray 08/09/17 0000 Signed Impressions: Service Date/Time: Wednesday, August 09, 2017 10:13 - CONCLUSION: 1. Lateral left basilar small pneumothorax. 2. Stable position of left chest tube. 3. Bibasilar airspace disease; unchanged. Cuate Hope MD Brain MRI 08/06/17 0000 Signed Impressions: Service Date/Time: Sunday, August 06, 2017 16:40 - CONCLUSION: Diffuse restricted diffusion consistent with anoxic brain injury involving the cortex, cerebellum, brainstem and mesial temporal/hippocampal regions. Delon Nagel MD Head CT 08/04/17 1618 Signed Impressions: Service Date/Time: July 17:06 - CONCLUSION: Asymmetry of the sulci with more atrophy and sulcal prominence noted over the left frontal and parietal convexities and paired to the right however there is no low density edema or mass effect identified. A portion of this may be artifactual and due to the patient being slightly tilted in the scanning gantry. Subtle edema is less likely. Further evaluation with MRI imaging could be performed. Ian Maynard MD CT Angiography 08/04/17 0000 Signed Impressions: Service Date/Time: July 18:44 - CONCLUSION: 1. No pulmonary embolus. 2. Chronic emphysematous change seen in the upper lungs. 3. Numerous patchy areas of focal density seen throughout both lungs. This pattern is most suggestive of post inflammatory change although other processes including neoplasm cannot absolutely be excluded. The patient does have evidence of prior granulomatous exposure. If the patient had signs of infectious/inflammatory change in the lungs, they could be treated and a follow-up CT examination be obtained in two to three months for re-evaluation. Alternatively, one could perform a PET scan to determine if any of these areas are metabolically active. The largest area is seen in the left upper lobe. Martinez Cerda MD Abdomen/Pelvis CT 08/04/17 0000 Signed Impressions: Service Date/Time: July 18:44 - CONCLUSION: 1. No acute abnormality is seen. 2. Mild hepatic steatosis. 3. Mildly prominent retroperitoneal lymph nodes, these are nonspecific. 4. Right renal cysts. Martinez Cerda MD Procedures * 08/08/17 - left chest tube * 08/04/17 - PEA arrest, intubated, right subclavian central line placed. . Assessment and Plan Disease Oriented Problem List: (1) Anoxic encephalopathy (2) ETOHism (3) PEA (Pulseless electrical activity) (4) Renal failure (5) Liver failure, acute (6) Elevated troponin Symptom Scale: (1) Pain 0-10 Scale: Unable to quantify (2) Seizure 0-10 Scale: Unable to quantify (3) Dyspnea 0-10 Scale: Unable to quantify Pertinent Non-Medical Issues Psychosocial: Single. No children. Supported by roommates, nephew and sister. Spiritual: family declines reimbursement liaison support, [employer] is not an important part of the patient's life. Legal: Patient currently incapacitated to make his own health care decisions. Living Will/durable power of employee benefits attorney for healthcare names, Kendra Oneil as Primary HCS and Yun Danielson as alternate HCS. Decisions will likely be supported by his nephew, Anthony Grossman and sister, Catherine Ames. Ethical issues impacting care: no known concerns at this time. . Important Contacts * Kendra Oneil, friend/HCS: [phone] * Anthony Grossman nephew: [phone] Works at [employer] [place] * Genny Grossman (nephews ): [phone] . Prognosis Mr. Grossman is a 71-year-old male with underlying COPD, chronic alcohol and tobacco use admitted post cardiac arrest with respiratory failure, renal failure , liver failure and likely anoxic injury with seizure activity not a candidate for cardiac intervention. Overall prognosis appears poor for meaningful recovery. . Code Status: No Code Plan * Decision Maker: Patient currently incapacitated to make his own health care decisions. Living Will/durable power of employee benefits attorney for healthcare names, Kendra Oneil as Primary HCS and uYn Danielson as alternate HCS. Decisions will likely be supported by his nephewAnthony and sister, Catherine Ames. * NO CODE - HCS and family elect NO CODE as this is reportedly in keeping with patient verbal and written advanced directives. * Palliative care met with Kendra "Jesse" Thad (HCS) and his Anthony Biggs (nephew) and his Chilango Royal (nephew) and his Catherine Modi (sister) and her . Also present Michelle Krishna LCSW. Medical update provided. Reviewed nephrology consult and that patient is not a candidate for dialysis. HCS and all family are in agreement patient would not want to continue aggressive care. They are all certain patient would want to transition to comfort measures based on patient previously written advanced directives. Anticipatory guidance provided. * Discussed with Dr. Ortega and Dr. Mckeon. Exhibits B & C on chart signed. * SYMPTOMS: Pain: No obvious signs of pain. Dyspnea: on mech vent, FiO2 100%. Seizure: on Keppra. No visible seizure noted. Orders written for transition to comfort as per family wishes. * Palliative care will continue to follow throughout hospital course to assist with symptom management and clarification of goals as needed. . Attestation To help prompt me to consider important information that might be impacting today's encounter and assessment, information from prior notes written by myself or my colleagues may have been "brought forward" into today's note. My signature on this note, however, is an attestation that I personally performed the exam, history, and/or decision-making noted today, and, unless otherwise indicated, the interactions with patient, family, and staff as well as the review of records all occurred today. I also attest that the listed assessment and stated plan reflect my best clinical judgment today based on the combination of historical information, prior notes, and today's exam/ interactions. When time spent is documented, it refers only to time spent today by the signer, or if indicated, combined time spent today by collaborating physician/nurse practitioner. Sandie Kenney Aug 09, 2017 15:45
[2017-08-09] MEDS ORDERED: HYOSCYAMINE 0.5 MG/ML AMP IV PUSH ONE (17:00)
[2017-08-09] MEDS ORDERED: ACETAMINOPHEN 650 MG SUPP RECTAL PRN (17:00)
[2017-08-09] MEDS ORDERED: HYDROmorphone HCL PF 2 MG/ML VIAL IV PUSH PRN ×2 (17:00)
[2017-08-09] MEDS ORDERED: LORazepam 2 MG/ML VIAL IV PUSH ONE ×2 (17:00→17:45)
[2017-08-09] MEDS ORDERED: HYOSCYAMINE 0.5 MG/ML AMP IV PUSH PRN (17:00)
[2017-08-09] MEDS ORDERED: HYDROmorphone HCL PF 2 MG/ML VIAL IV PUSH ONE ×2 (17:00→17:45)
[2017-08-09] MEDS ORDERED: LORazepam 2 MG/ML VIAL IV PUSH PRN ×3 (17:00)
[2017-08-09] MEDS ORDERED: BISACODYL 10 MG SUPP RECTAL PRN (17:00)
[2017-08-09] MEDS ORDERED: FUROSEMIDE 20 MG/2 ML VIAL IV PUSH PRN (17:00)
[2017-08-09] MEDS ORDERED: HYDROmorphone HCL PF 2 MG/ML VIAL IV PUSH SCH (20:00)
[2017-08-09] MEDS ORDERED: LORazepam 2 MG/ML VIAL IV PUSH SCH (20:00)
== END 2017-08-09 18:08 | disposition expired | DRG 207 ==
LOC: NEPE 16:05 → NEDA 18:26 → HIME 18:56
PROVIDERS: ADMIT Internal Medicine Critical Care Medicine; ATTEND Internal Medicine Critical Care Medicine
PROC: 0BH17EZ Insertion of Endotracheal Airway into Trachea, Via Natural or Artificial Opening (ICD-10-PCS; principal; 2017-08-04)
PROC: 5A1955Z Respiratory Ventilation, Greater than 96 Consecutive Hours (ICD-10-PCS; 2017-08-04)
PROC: 0W9B30Z Drainage of Left Pleural Cavity with Drainage Device, Percutaneous Approach (ICD-10-PCS; 2017-08-08)
DX: J96.01 Acute respiratory failure with hypoxia (principal); K72.00 Acute and subacute hepatic failure without coma; I49.01 Ventricular fibrillation; N17.0 Acute kidney failure with tubular necrosis; G93.1 Anoxic brain damage, not elsewhere classified; J93.83 Other pneumothorax; R57.9 Shock, unspecified; I46.9 Cardiac arrest, cause unspecified; J96.02 Acute respiratory failure with hypercapnia; J44.9 Chronic obstructive pulmonary disease, unspecified; E87.5 Hyperkalemia; Z51.5 Encounter for palliative care; F10.20 Alcohol dependence, uncomplicated; R56.9 Unspecified convulsions; R74.8 Abnormal levels of other serum enzymes; E87.70 Fluid overload, unspecified; F17.210 Nicotine dependence, cigarettes, uncomplicated
CPT/HCPCS: 31500; 32551; 36556; 36600; 43753; 51702; 70450; 70551; 71010; 71275; 74177; 76937; 80048; 80053; 80185; 80307; 82550; 82552; 82805; 83605; 83735; 84100; 84145; 84484; 85007; 85027; 85610; 87040; 87186; 87205; 87641; 92950; 93005; 93306; 94002; 94003; 94640; 94664; 95819; 96365; 96366; C9113; J0171; J0610; J1170; J1265; J1644; J1815; J1953; J1980; J2060; J2250; J2930; J3010; J3411; J7030; J7040; P9045; Q2009; Q9967